=== PATIENT | male | born 1965 | race Caucasian/White ===

== ENCOUNTER 2019-01-14 12:12 | Inpatient (IN) | payer MEDICARE, MEDICAID ==
[~2019-01-14] VITALS: Ht 182.9 cm; Wt 71.4 kg
[2019-01-14] MEDS ORDERED: NITR0.4T39 SL (13:12)
[2019-01-14] MEDS ORDERED: FURO20TA4 PO (13:12)
[2019-01-14] MEDS ORDERED: LEVO125T6 PO (13:12)
[2019-01-14] MEDS ORDERED: FERR325T18 PO (13:12)
[2019-01-14] MEDS ORDERED: DULA1.5P2 SQ (13:12)
[2019-01-14] MEDS ORDERED: INSU100I32 SQ (13:12)
[2019-01-14] MEDS ORDERED: ROSU40TA PO (13:12)
[2019-01-14] MEDS ORDERED: VILA40TA PO (13:12)
[2019-01-14] MEDS ORDERED: POLY17PO6 PO (13:12)
[2019-01-14] MEDS ORDERED: CARV12.52 PO (13:12)
[2019-01-14] MEDS ORDERED: ONDA8TAB13 PO (13:12)
[2019-01-14] MEDS ORDERED: LISI-556 PO (13:12)
[2019-01-14] MEDS ORDERED: PANT40TA3 PO (13:12)
[2019-01-14] MEDS ORDERED: GBPN600T PO (13:12)
[2019-01-14] MEDS ORDERED: LURA80TA3 PO (13:12)
[2019-01-14] MEDS ORDERED: LEVE100S16 PO (13:12)
--- NOTE | 2019-01-14 15:55 | NUR ---
Gertrude Frazier admitted to room 232-1, with an admitting diagnosis of CVA with Right sided paralysis, on 01/14/19 from [facility] via Ambulance, accompanied by customer experience specialist.GERTRUDE FRAZIER introduced to surroundings, call light, bed controls, phone, TV, temperature control, lights, meal times, smoking policy, visitor policy, side rail policy, bathrooms and showers. Patient Rights given to patient in the handbook.GERTRUDE FRAZIER verbalizes understanding that [facility] is not responsible for the loss or damage to any personal effects or valuables that are kept in the patients posession during their hospitalization. The following Patient Care Plans were discussed with the patient: Discharge Planning, CVA. GERTRUDE FRAZIER afferms with a nod understanding of Interdisciplinary Patient Education. Patient received Patient Rights Booklet, which includes Privacy Act Statement and Data Collection Information Summary.
--- NOTE | 2019-01-14 16:14 | Physical Therapy Evaluation ---
PT Evaluation-General Medical Diagnosis Admission Date Medical Diagnosis: CVA Onset Date: Jan 03, 2019 Therapy Diagnosis Therapy Diagnosis: impaired mobility, strength, endurance, balance Referral Physician: Amanda Alicia DO Reason for Referral: Evaluation/Treatment Medical History Pertinent Medical History: CAD, COPD, DM, Hypothroidism Additional Medical History anxiety, depression, Factor V Leiden, hyperlipidemia, PE, CHF Current History Pt had a MCA stroke Reviewed History: Yes Social History Unknown, patient is non-verbal and has no visitors. Prior/Core FIM Prior Level of Function Therapy Code Descriptions/Definitions Functional Dixie Measure: 0=Not Assessed/NA 4=Minimal Assistance 1=Total Assistance 5=Supervision or Setup 2=Maximal Assistance 6=Modified Dixie 3=Moderate Assistance 7=Complete Dixie Therapy Quality Codes: 6 Independent with activity with or without an assistive device 5 Patient requires set up or clean up by helper. Patient completes activity by themselves 4 Supervision or touching assist (CGA). [place] provide cues , steadying assist 3 The helper provides less than half the effort to complete the activity 2 The helper provides more than half the effort to complete the activity 1 Dependent. The helper does all the effort to complete an activity 7 Patient refused to complete or attempt activity 9 The patient did not perform the activity before the current illness or injury 88 Not attempted due to Medical conditions or safety concerns Functional Abilities and Goals: Independent: Patient completed the activities by him/herself, with or without an assistive device, with no assistance from a helper. Needed Some Help: Patient needed partial assistance from another person to complete activities. Dependent: A helper completed the activities for the patient. Unknown: Not Applicable: PT Evaluation-Current Subjective Patient in bed pre tx, he is non-verbal. Seems to have unreliable yes/no answers. Does not indicate that he has any pain. Objective Patient Orientation: Unable to Assess, Non-Verbal/Aphasic Attachments: Temple Catheter ROM/Strength ROM Lower Extremities WNL Strenght Lower Extremities Flaccid right side, cannot follow directions to perform strength testing on the left side. Neuromuscular (Tone, Coordination, Reflexes) Decreased general muscle tone in right leg. Transfers Therapy Code Descriptions/Definitions Functional Dixie Measure: 0=Not Assessed/NA 4=Minimal Assistance 1=Total Assistance 5=Supervision or Setup 2=Maximal Assistance 6=Modified Dixie 3=Moderate Assistance 7=Complete Dixie Therapy Quality Codes: 6 Independent with activity with or without an assistive device 5 Patient requires set up or clean up by helper. Patient completes activity by themselves 4 Supervision or touching assist (CGA). [place] provide cues , steadying assist 3 The helper provides less than half the effort to complete the activity 2 The helper provides more than half the effort to complete the activity 1 Dependent. The helper does all the effort to complete an activity 7 Patient refused to complete or attempt activity 9 The patient did not perform the activity before the current illness or injury 88 Not attempted due to Medical conditions or safety concerns Transfers (B, C, W/C) (FIM): 2 Scootin Rollin Roll Left to Right (QC): 2 Supine to/from Sit: 2 Sit to/from Stand: 3 bed t/f WC(FIM only if WC use): 2 Sit to Lying (QC): 2 Lying to Sitting/Side of Bed(Q: 2 Sit to Stand (QC): 2 Chair/Rsb-bj-Hiyzq Xfer(QC): 2 Car Transfer (QC): 1 Patient performs bed mobility with max assist, supine <-> sit with max assist, sit <-> stand with mod assist, transfers with mod assist, dependent for car transfer. Leans heavily to the right side when sitting or standing. Gait Does the Patient Walk?: No and Walking Goal IS indicated Comments/Gait Description Patient is non-ambulatory at this time, right side is flaccid, leans heavily to the right side. Wheelchair Training Does the Pt Use a Wheelchair?: Yes Wheelchair (FIM): 1 Type of Wheelchair: Manual Stairs If not tested on admit;explain patient is non-ambulatory at this time Balance Sitting Static: Poor Sitting Dynamic: Poor Standing Static: Poor Standing Dynamic: Poor Assessment/Needs Patient is flaccid on the right side, poor sitting and standing balance. Rehab Potential: Poor PT Short Term Goals Short Term Goals Time Frame: Jan 21, 2019 Transfers (B,C,W/C) (FIM): 3 Gait (FIM): 1 Gait Distance Comment: 8' Gait Level of Assist: 2 Gait Assistive Device: Parallel Bars PT Assisted Goals Newsstand Vendor Goals PT Assisted Goals Time Frame: Feb 04, 2019 Transfers (B,C,W/C) (FIM): 4 Sit to Lying (QC): 3 Lying-Sitting on Side/Bed(QC): 3 Sit to Stand (QC): 3 Rollin Roll Left to Right (QC): 3 Chair/Gzm-kq-Giuxp Xfer(QC): 3 Car Transfer (QC): 3 Gait (FIM): 1 Distance: 20' Walk 10 feet (QC): 3 Gait Level of Assist: 4 Gait Assistive Device: Walker Dmitry Wheelchair (FIM): 2 Distance: 50' Wheelchair Level of Assist: 3 Wheel 50 feet with 2 turns (QC: 2 PT Plan Problem List Problem List: Activity Tolerance, Functional Strength, Safety, Balance, Gait, Transfer, Bed Mobility, ROM Treatment/Plan Treatment Plan: Continue Plan of Care Treatment Plan: Bed Mobility, Concurrent Therapy, Education, Functional Activity Merlin, Functional Strength, Group Therapy, Gait, Safety, Therapeutic Exercise, Transfers Treatment Duration: Feb 04, 2019 Frequency: At least 5 of 7 days/Wk (IRF) Estimated Hrs Per Day: 1.5 hours per day Patient and/or Family Agrees t: Yes Safety Risks/Education Patient Education: Transfer Techniques, Correct Positioning, Safety Issues Teaching Recipient: Patient Teaching Methods: Demonstration, Discussion Response to Teaching: Reinforcement Needed Discharge Recommendations Plan Patient will perform bed mobility and transfer training, balance and endurance training, functional strengthening, gait training, wheelchair mobility training , and education, to improve functional mobility and independence at home. Therapy D/C Recommendations: Home w/ Family Support, Long Term (TCU/NH) Time/GCodes Time In: 1555 Time Out: 1605 Total Billed Treatment Time: 10 Total Billed Treatment 1 visit CARLOS IQBAL PT Jan 14, 2019 16:14
[2019-01-14] MEDS ORDERED: NON-FORMULARY MEDICATION 1 EA EA (Dulaglutide (Trulicity) 1.5 MG) SQ SCH (16:15)
[2019-01-14] MEDS ORDERED: ONDANSETRON 8 MG (ZOFRAN) ORAL DISSOLVE TAB PO PRN (16:15)
[2019-01-14] MEDS ORDERED: NITROGLYCERIN 0.4 MG SL TABS BTL 25'S SL PRN (16:15)
[2019-01-14] MEDS ORDERED: FUROSEMIDE 20 MG (LASIX) TAB PO PRN (16:15)
[2019-01-14 16:19] VITALS: BP 140/95
--- NOTE | 2019-01-14 16:27 | Occupational Therapy Eval ---
OT Evaluation-General/PLF Medical Diagnosis Admission Date Jan 14, 2019 at 15:55 Medical Diagnosis: CVA Onset Date: Jan 03, 2019 Therapy Diagnosis Therapy Diagnosis: impaired self care skills Referral Physician: Amanda Alicia DO Medical History Pertinent Medical History: CAD, COPD, DM, GERD, Hypothroidism Additional Medical History anxiety, depression, Factor V Leiden, hyperlipidemia, PE, CHF Current History Pt had a MCA stroke ADL-Prior Level of Function Therapy Code Descriptions/Definitions Functional Badger Measure: 0=Not Assessed/NA 4=Minimal Assistance 1=Total Assistance 5=Supervision or Setup 2=Maximal Assistance 6=Modified Bad[place] 3=Moderate Assistance 7=Complete [place] Therapy Quality Codes: 6 Independent with activity with or without an assistive device 5 Patient requires set up or clean up by helper. Patient completes activity by themselves 4 Supervision or touching assist (CGA). [place] provide cues , steadying assist 3 The helper provides less than half the effort to complete the activity 2 The helper provides more than half the effort to complete the activity 1 Dependent. The helper does all the effort to complete an activity 7 Patient refused to complete or attempt activity 9 The patient did not perform the activity before the current illness or injury 88 Not attempted due to Medical conditions or safety concerns Functional Abilities and Goals: Independent: Patient completed the activities by him/herself, with or without an assistive device, with no assistance from a helper. Needed Some Help: Patient needed partial assistance from another person to complete activities. Dependent: A helper completed the activities for the patient. Unknown: Not Applicable: ADL PLOF Comments Pt nonverbal. Unable to answer simple questions. PLOF is unknown. No family present. Self Care: Unknown Functional Cognition: Unknown OT Current Status Subjective Pt transferred to ARU from outside hospital by ambulance. Pt is non-verbal and is unable to answer questions. Mental Status/Objective Patient Orientation: Unable to Assess Attachments: PEG Tube Current Upper Extremity ROM Pt does not have any active movement of right UE. Shoulder Subluxation is noted. Decreased shoulder ROM Left UE ROM appears to be functional Upper Extremity Coordination Impaired right UE Upper Extremity Sensation Unable to assess Upper Extremity Strength 0/5 right UE Difficult to Assess left UE secondary to decreased ability to follow commands for MMT. ADL-Treatment ADL-Current Pt sitting in chair. Transferred to EOB with max assist. Pt leans to right during standing and sitting at EOB. Sit to supine with assist for trunk and LE. Pt positioned in bed with needs met. Nurse aide present. Will complete ADL assessment in future session. OT Short Term Goals Short Term Goals Time Frame: Jan 21, 2019 Grooming(FIM): 3 Upper Body Dressing(FIM): 3 Lower Body Dressing(FIM): 2 Toilet/Commode Transfer(FIM): 3 Additional Short Term Goals: 1-Demonstrate ADL Tasks, 2-Verbalize Understanding , 3-ImproveStrength/Merlin 1=Demonstrate adherence to instructed precautions during ADL tasks. 2=Patient will verbalize/demonstrate understanding of assistive devices/ modifications for ADL. 3=Patient will improve strength/tolerance for activity to enable patient to perform ADL's. OT Company Doctor Goals Half-Way Goals Time Frame: Feb 04, 2019 Eating (FIM): 5 (if pt is cleared for oral intake) Eating (QC): 5 Groomin Oral Hygiene (QC): 4 Bathing(FIM): 4 Shower/Bathe Self (QC): 3 Upper Body Dressing(FIM): 4 Upper Body Dressing (QC): 3 Lower Body Dressing(FIM): 3 On/Off Footwear (QC): 3 Toileting(FIM): 4 Toileting Hygiene (QC): 3 Toilet/Commode Transfer(FIM): 4 Toilet/Commode Transfer (QC): 3 Shower Transfer(FIM): 3 Additional Goals: 1-Demonstrate ADL Tasks, 2-Verbalize Understanding, 3- ImproveStrength/Merlin 1=Demonstrate adherence to instructed precautions during ADL tasks. 2=Patient will verbalize/demonstrate understanding of assistive devices/ modifications for ADL. 3=Patient will improve strength/tolerance for activity to enable patient to perform ADL's. OT Education/Plan Problem List/Assessment Assessment: Decreased Activ Tolerance, Decreased Safety Aware, Decreased UE Strength, Dependent Transfers, Impaired Bed Mobility, Impaired Coordination, Impaired Funct Balance, Impaired I ADL's, Impaired Self-Care Skills, Restricted Funct UE ROM Pt admitted to ARU following acute hospitalization for CVA. Pt does not demonstrate any active movement of right UE. Pt is nonverbal and has difficulty following commands. Pt to benefit from skilled OT intervention for ADL training , transfers, ROM/strengthening, and safety education to increase level of independence and allow safe discharge plan. Discharge Recommendations Plan/Recommendations: Continue POC Treatment Plan/Plan of Care Treatment,Training & Education: Yes Patient would benefit from OT for education, treatment and training to promote independence in ADL's, mobility, safety and/or upper extremity function for ADL' s. Plan of Care: ADL Retraining, Functional Mobility, Group Exercise/Act as Ind, UE Funct Exercise/Act, UE Neuromus Re-Ed/Coord, Visual/Perceptual Retrain Treatment Duration: Feb 04, 2019 Frequency: At least 5 of 7 days/Wk (IRF) Estimated Hrs Per Day: 1.5 hours per day Rehab Potential: Poor Time/GCodes Start Time: 16:05 Stop Time: 16:15 Total Time Billed (hr/min): 10 Billed Treatment Time 1 visit, EVEve(10minutes) NANCY GORMAN OT Jan 14, 2019 16:27
[2019-01-14] MEDS ORDERED: ONDANSETRON 4 MG (ZOFRAN) ORAL DISSOLVE TAB PO PRN (16:30)
[2019-01-14] MEDS ORDERED: PATIENT MAY USE OWN MED,SINGLE MED PO SCH (16:30)
--- NOTE | 2019-01-14 17:31 | PM&R H&P / Post Admit Assess ---
History of Present Illness HPI/Chief Complaint CC: Catastrophic CVA debility HPI: This is a 53-year-old white male who has a past medical history of type II diabetes, CAD w/recent stents placed 09/28 and hypertension who was admitted to [facility] on 01/03/19 due to right sided weakness due to ischemic stroke. He was a phasic on admission and admitted to the ICU at [facility]. The stroke was located in the left MCA region. He did not qualify for TPA. Patient later converted to hemorrhagic stroke for which neurosurgery was consulted. No decompression surgery was required. Patient was on anticoagulation and antiplatelet therapy for the stroke occurred. He had had multiple stents placed in September for which he was on antiplatelet therapy. Both anticoagulation and antiplatelet agents were stopped because of the hemorrhagic progression. [facility] had spoken to neurology and cardiology and antiplatelets can be resumed 2 weeks from time of discharge from [facility] on 01/14/19. Those will be restarted on 01/28/19. Patient also had dysphagia as a result from the stroke and although NG tube was placed for feeding he's failed multiple swallow test and GI waist PEG tube. Currently patient aphasic with also expressive aphasia and requires feedings per PEG tube. Patient does have blanchable areas on his coccyx and right heel of which are being treated aggressively. No evidence of infection around the PEG tube. He did have incontinence stool this morning. His sister is involved in his care but I have not seen her arrived yet. Patient has never and has no other family members. Barriers to returning home include lack of ability to communicate may be a safety hazard if that does not resolve in addition to tube feedings and right- sided paralysis will preclude him from likely doing that himself in addition to major fall risk if he cannot walk on his own. Source: RN/MD, old records Exam Limitations: clinical condition Date Seen 01/14/19 Time Seen by a Provider: 17:30 Attending Physician Amanda Rene Jackie S MD Referring Physician Date of Admission Jan 14, 2019 at 15:55 Home Medications & Allergies Home Medications Reviewed patient Home Medication Reconciliation performed by pharmacy medication reconciliations machines technician and/or nursing. Patients Allergies have been reviewed. Allergies Allergies Coded Allergies tramadol (Verified Allergy, Severe, N/V, throat swells, 01/14/19) codeine (Verified Allergy, Intermediate, SOA,Wheezing, 01/14/19) citalopram (Verified Allergy, Mild, dizziness, 01/14/19) nalbuphine (Verified Allergy, Mild, itching, 01/14/19) Past Yrflqoh-Klrsxc-Hiykhz Hx Past Med/Social Hx: Reviewed Nursing Past Med/Soc Hx, Reviewed and Corrections made Patient Social History Marrital Status: single Employed/Student: unemployed Smoking Status: Current Everyday Smoker Past Medical History Surgeries: Orthopedic Respiratory: COPD, Sleep Apnea Currently Using CPAP: No Currently Using BIPAP: No Cardiac: Angina, Cardiomyopathy, Chronic Edema/Swelling, Coronary Artery Disease, Deep Vein Thrombosis, Heart Attack, High Cholesterol, Hypertension Neurological: Stroke (01/03/19 ischemic and extended to hemorrhagic) Genitourinary: Kidney Stones, Renal Failure, Neurogenic Bladder Gastrointestinal: Gastroesophageal Reflux PEG tube Endocrine: Diabetes, Insulin dep Psychosocial: Anxiety, Suicide Attempts, Schizophrenia, Depression Skin/Integumentary: Recent Skin Changes Review of Systems ROS-Unable to Obtain: due to aphasia Constitutional: see HPI Physical Exam Exam Vital Signs Vital Signs Date Time Temp Pulse Resp B/P (MAP) Pulse Ox O2 Delivery O2 Flow Rate FiO2 01/15/19 09:08 98.0 64 20 119/77 (91) 100 Room Air Capillary Refill : General Appearance: No Apparent Distress, WD/WN, Chronically ill, Cachetic HEENT: PERRL/EOMI, Normal ENT Inspection, Pharynx Normal, Moist Mucous Membranes Neck: Normal Inspection, Non Tender, Supple, Other (limited ROM leans right) Respiratory: Lungs Clear, Normal Breath Sounds, No Accessory Muscle Use, No Respiratory Distress, Decreased Breath Sounds Cardiovascular: Regular Rate, Rhythm, No Edema, No Gallop, No JVD, No Murmur Gastrointestinal: Normal Bowel Sounds, No Organomegaly, No Pulsatile Mass, Non Tender, Soft Back: Normal Inspection, No CVA Tenderness, No Vertebral Tenderness, Decreased Range of Motion (leans right) Extremity: Normal Capillary Refill, Normal Inspection, Non Tender, No Calf Tenderness, No Pedal Edema, Other (limited ROM right) Neurologic/Psychiatric: Alert, Abnormal treasury director II-XII, Aphasia, Depressed Affect, Facial Droop, Motor Weakness (right) Skin: Normal Color, Warm/Dry Lymphatic: No Adenopathy Results Results/Procedures Labs Laboratory Tests 01/15/19 04:25 Patient resulted labs reviewed. Assessment/Plan Assessment and Plan Assess & Plan/Chief Complaint Assessment/Plan: (1) Hemorrhagic stroke-not an antiplatelet and anticoagulation candidate until per Neurology specialty (2) Ischemic stroke- catastrophic with right sided paralysis (3) CAD (coronary artery disease)-consulting Dr Burton (4) Presence of stent in coronary artery- 09/28 must stay off Plavix until (5) Aphasia-ST consult (6) Expressive aphasia- ST consult (7) Decubitus ulcer- monitor closely may need wound care if progresses (8) Smoker-smoking cessation (9) Diabetes mellitus-insulin management (10) Temple catheter in place-consult Dr Klein on Thursday to help with DC due to infection risk (11) PEG (percutaneous endoscopic gastrostomy) status-feeding regimen per dietary (12) Dysphagia-NPO (13) Hypothyroidism (acquired)-Home med (14) Anxiety-home med (15) Acute kidney injury- monitor closely creatinine normal today (16) Factor 5 Leiden mutation, heterozygous-no anticoagulation of Xarelto home med until 01/28/19 (17) Hx pulmonary embolism- no anticoagulation of Xarelto home med until 01/28/19 (18) Hypertension- home med (19) History of ST elevation myocardial infarction (STEMI)-Cardiology appreciated (20) Colon polyps (21) Hyponatremia- monitor closely due to brain injury (22) Depression- home med restart (23) CHF (congestive heart failure)- check ECHO 40% last EF a few years ago (24) Cardiomyopathy, ischemic- check ECHO 40% last EF a few years ago (25) COPD (chronic obstructive pulmonary disease)- may need nebs (26) LILY (obstructive sleep apnea)- monitor O2 (27) GERD (gastroesophageal reflux disease)- PPI (28) Hyperlipidemia- statin (29) Renal calculus- no active issues (30) Schizophrenia- chronic disability (31) Marijuana abuse- cessation currently (1) Hemorrhagic stroke (2) Ischemic stroke (3) CAD (coronary artery disease) (4) Presence of stent in coronary artery (5) Aphasia (6) Expressive aphasia (7) Decubitus ulcer (8) Smoker (9) Diabetes mellitus (10) Temple catheter in place (11) PEG (percutaneous endoscopic gastrostomy) status (12) Dysphagia (13) Hypothyroidism (acquired) (14) Anxiety (15) Acute kidney injury (16) Factor 5 Leiden mutation, heterozygous (17) Hx pulmonary embolism (18) Hypertension (19) History of ST elevation myocardial infarction (STEMI) (20) Colon polyps (21) Hyponatremia (22) Depression (23) CHF (congestive heart failure) (24) Cardiomyopathy, ischemic (25) COPD (chronic obstructive pulmonary disease) (26) LILY (obstructive sleep apnea) (27) GERD (gastroesophageal reflux disease) (28) Hyperlipidemia (29) Renal calculus (30) Schizophrenia (31) Marijuana abuse (32) CVA (cerebral vascular accident) Post Admission Physician Asses Date seen by provider: Jan 14, 2019 Time seen by provider: 17:30 The preadmission screen agrees with the post admission assessment that the patient is a good candidate for inpatient rehabilitation. The patient will have a comprehensive program of inpatient rehabilitation with a goal of maximizing level of functional independence prior to discharge home with family. The patient will have PT/OT ninety minutes per day, each discipline, five days a week for gait, strengthening, conditioning, balance, ADLs, any patient/family/caregiver training as necessary. Speech therapy to do cognitive assessment and treat as indicated. Rehabilitation nursing to assist with bowel, bladder, skin, wound care, medication administration, pain management. Vice President Medical Affairs to assist with discharge planning, community reentry. SCD's for DVT prophylaxis. He appears to be well motivated to participate in three hours of therapy a day. He should be able to tolerate three hours of therapy a day from a medical standpoint. He should benefit from the three hours of therapy a day. He has a reasonable discharge plan, reasonable discharge rehabilitation goals and a supportive family. He has various comorbidities that need to be closely monitored with medications and treatments adjusted on a daily basis as needed. These include: see above list Barriers to discharge for this patient who had been independent prior to this are for him to be modified independent to supervision for ADLs and mobility skills prior to discharge home with [family], so as to lessen the burden of the caregivers. Risks for this patient include: 1. Fall 2. Fracture 3. DVT 4. Pulmonary embolism 5. Wound infection 6. Skin breakdown 7. Contractures 8. Poorly controlled pain 9. Urinary retention 10. UTI 11. Respiratory infection 12. Aspiration Estimated Length of Stay: 21 days Prognosis: Rehab prognosis appears good for goal of discharge home with family modified independent to supervision for ADLs and mobility skills. AMANDA RENE DO Jan 14, 2019 17:31
[2019-01-14] MEDS: FERROUS SULF 325 MG (IRON) TAB PO SCH (18:19)
--- NOTE | 2019-01-14 19:53 | Consultation-Cardiology ---
HPI-Cardiology Cardiology Consultation: Date of Consultation 01/14/19 Time Seen by a Provider: 19:20 Date of Admission Attending Physician Amanda Alicia DO Admitting Physician Bell Colin MD Consulting Physician LETTY SANCHEZ MD, MA, FACP, FACC, [facility] [place], CCDS Physician requesting consult: Dr Alicia HPI: Chief Complaint: Reason for consultation: Cardiac co-management HPI 53 yo man with recent stroke that has left him with R-sided paralysis and aphasia He is not able to provide any history By movements head, denies cp or shortness of breath or syncope Review of Systems-Cardiology Review of Systems Constitutional: other (not able to provide a review of systems due aphasia) WDT-Yxskop-Jzsxec Hx Past Medical History PMH As described under Assessment. Family Medical History Family Medical History: Pt not able to provide fam history Allergies and Home Medications Allergies Coded Allergies: No Allergy Information Available (Unverified , 01/14/19) Home Medications Carvedilol 12.5 Mg Tablet, 12.5 MG PO BID, (Reported) Dulaglutide 1.5 Mg/0.5 Ml Pen.injctr, 1.5 MG SQ WEEK, (Reported) Ferrous Sulfate 325 Mg Tablet, 325 MG PO BID, (Reported) Furosemide 20 Mg Tablet, 20 MG PO DAILY PRN for GAIN 3LBS IN 24H OR 5LB IN 72H, (Reported) Gabapentin 600 Mg Tablet, 600 MG PO TID, (Reported) Insulin Degludec 100 Unit/1 Ml Insuln.pen, SQ UD, (Reported) 10 UNITS DAILY IN THE MORNING AND TITRATE INSTRUCTED. MAX DAILY DOSE 40 UNITS Levetiracetam 100 Mg/1 Ml Solution, 500 MG PO BID, (Reported) Levothyroxine Sodium 125 Mcg Tablet, 125 MCG PO DAILY, (Reported) Lisinopril 5 Mg Tablet, 5 MG PO DAILY, (Reported) Lurasidone HCl 80 Mg Tablet, 160 MG PO HS, (Reported) TAKES 2 (80MG) TABLETS Nitroglycerin 0.4 Mg Tab.subl, 0.4 MG SL UD PRN for CHEST PAIN, (Reported) Ondansetron 8 Mg Tab.rapdis, 8 MG PO Q8H PRN for NAUSEA/VOMITING-1ST LINE, ( Reported) Pantoprazole Sodium 40 Mg Tablet.dr, 40 MG PO DAILY, (Reported) Polyethylene Glycol 3350 17 Gm Powd.pack, 17 GM PO BID, (Reported) Rosuvastatin Calcium 40 Mg Tablet, 40 MG PO HS, (Reported) Vilazodone Hydrochloride 40 Mg Tablet, 40 MG PO DAILY, (Reported) Patient Home Medication List Home Medication List Reviewed: Yes Physical Exam-Cardiology Physical Exam Vital Signs/I&O 01/14/19 01/14/19 16:19 18:45 Temp 97.2 Pulse 72 Resp 16 B/P (MAP) 140/95 (110) Pulse Ox 98 O2 Delivery Room Air Room Air Capillary Refill : Data Review Labs Laboratory Tests 01/14/19 17:33: Glucometer 130H A/P-Cardiology Assessment/Admission Diagnosis 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 This is reported to be an ischemic stroke that converted to hemorrhagic stroke that was assoc's with hemorrhagic brain compression (treated conservatively by Neurosurgery at [facility]) DM II H/o cor stents in Sep 2018, but DAPT is being held because of the hemorrhagic component of the stroke. According to the d/c summary dated 01/14/19 from [facility], Neurology has recommended no antiplatelet therapy for at least 2 weeks Discussion and Recomendations * Very complex management * Needs antiplatelet therapy to prevent fatal stent thrombosis, but is contraindicated from a neurologic standpoint because of h'hagic component of recent ischemic stroke * We recommend initiation of Plavix as soon as is feasible from the standpoint of stroke. Dr Alicia is managing stroke and its rehab * We will try to obtain the reports of any recent cardiac workup/eval at [facility] * We will obtain LETTY Berkowitz MD FACP FAC CCDS Jan 14, 2019 19:53
[2019-01-14 20:54] VITALS: BP 107/74
[2019-01-14] MEDS: inSUlin ASPART (NovoLOG) 1 UNIT/0.01 ML (CHARGE PER UNIT) SC SCH (21:00)
[2019-01-14] MEDS: POLYETHYLENE GLYCOL 17 GM (MIRALAX) PACK PO SCH (21:15)
[2019-01-14] MEDS: GABAPENTIN 600 MG (NEURONTIN) TAB PO SCH (21:15)
[2019-01-14] MEDS: CARVEDILOL 12.5 MG (COREG) TABLET PO SCH (21:15)
[2019-01-14] MEDS: ROSUVASTATIN 20 MG (CRESTOR) TABLET PO SCH (21:15)
[2019-01-14] MEDS: LEVETIRACETAM 500 MG (KEPPRA) TAB PO SCH (21:15)
--- NOTE | 2019-01-15 | NUR ---
Glucerna 1.5/Peg tube feeding increased to 50 ml/hr. No residual, no N/V, no diarrhea, pt tolerating feeding well.
[2019-01-15 05:21] LABS: BASOPHILS # (AUTO) 0.1 10^3/uL (0.0-0.1); BASOPHILS % (AUTO) 1 % (0-10); EOSINOPHILS # (AUTO) 0.3 10^3/uL (0.0-0.3); EOSINOPHILS % (AUTO) 3 % (0-10); HEMATOCRIT 35 % (40-54); HEMOGLOBIN 11.5 G/DL (13.3-17.7); LYMPHOCYTES # (AUTO) 2.4 X 10^3 (1.0-4.0); LYMPHOCYTES % (AUTO) 29 % (12-44); MEAN CORPUSCULAR HEMOGLOBIN 30 PG (25-34); MEAN CORPUSCULAR HGB CONC 33 G/DL (32-36); MEAN CORPUSCULAR VOLUME 91 FL (80-99); MEAN PLATELET VOLUME 11.4 FL (7.4-10.4); MONOCYTES # (AUTO) 0.6 X 10^3 (0.0-1.0); MONOCYTES % (AUTO) 8 % (0-12); NEUTROPHILS # (AUTO) 5.1 X 10^3 (1.8-7.8); NEUTROPHILS % (AUTO) 60 % (42-75); PLATELET COUNT 291 10^3/uL (130-400); RED CELL DISTRIBUTION WIDTH 13.6 % (10.0-14.5); WHITE BLOOD COUNT 8.5 10^3/uL (4.3-11.0)
[2019-01-15 05:42] LABS: ALANINE AMINOTRANSFERASE 29 U/L (0-55); ALBUMIN 3.1 GM/DL (3.2-4.5); ALKALINE PHOSPHATASE 82 U/L (40-136); BILIRUBIN,TOTAL 0.3 MG/DL (0.1-1.0); BUN/CREATININE RATIO 32; CALCIUM 9.4 MG/DL (8.5-10.1); CARBON DIOXIDE 26 MMOL/L (21-32); CHLORIDE 111 MMOL/L (98-107); CREATININE SERUM 0.78 MG/DL (0.60-1.30); GFR ESTIMATED > 60; GLUCOSE 126 MG/DL (70-105); POTASSIUM 4.2 MMOL/L (3.6-5.0); SODIUM 145 MMOL/L (135-145); TOTAL PROTEIN 6.6 GM/DL (6.4-8.2)
[2019-01-15 06:00] VITALS: BP 106/74
[2019-01-15] MEDS: inSUlin ASPART (NovoLOG) 1 UNIT/0.01 ML (CHARGE PER UNIT) SC SCH ×4 (06:26→21:00)
[2019-01-15] MEDS: FERROUS SULF 325 MG (IRON) TAB PO SCH ×2 (06:45→16:46)
[2019-01-15] MEDS: LEVOTHYROXINE 125 MCG (LEVOTHROID) TABLET PO SCH (06:45)
[2019-01-15] MEDS ORDERED: VILAZODONE 40 MG (VIIBRYD) TABLET (NON-FORMULARY) PO SCH (09:00)
[2019-01-15 09:08] VITALS: BP 119/77
--- NOTE | 2019-01-15 09:54 | NUR ---
Pt in recliner w legs elevated after transferred per max assist of PT & OT. OT gave pt a comb & instructed it is for him to comb his hair. Pt took the comb in his Left hand, & placed it in his mouth. OT had to re-direct pt several times to use it for his hair & gong. Pt did eventually comb his hair & gong. Pt had been inct of mod amt smear of bm on fitted sheet, luz care provided, & sheets changed. Noted redness of bottom. Pt is non-verbal; nods head.
[2019-01-15] MEDS: PANTOPRAZOLE 40 MG (PROTONIX) TAB PO SCH (09:59)
[2019-01-15] MEDS: CARVEDILOL 12.5 MG (COREG) TABLET PO SCH ×2 (09:59→22:07)
[2019-01-15] MEDS: GABAPENTIN 600 MG (NEURONTIN) TAB PO SCH ×3 (09:59→22:07)
[2019-01-15] MEDS: lisINopril 5 MG (PRINIVIL) TABLET PO SCH (09:59)
[2019-01-15] MEDS: LEVETIRACETAM 500 MG (KEPPRA) TAB PO SCH ×2 (09:59→22:07)
[2019-01-15] MEDS: POLYETHYLENE GLYCOL 17 GM (MIRALAX) PACK PO SCH ×2 (09:59→22:08)
--- NOTE | 2019-01-15 10:07 | Occupational Ther Daily Note ---
OT Current Status-Daily Note Subjective Pt alert upon therapist arrival. Pt noted to have subluxation of RUE, therefore nursing consulted with recommendations to obtain a sling. Following assessment of self care status, the pt was positioned upright in his recliner, with pillows supporting subluxed glenohumeral joint. Pain Numeric Pain Scale: 0-No Pain Mental Status/Objective Patient Orientation: Non-Verbal/Aphasic Therapy Code Descriptions/Definitions Functional [place] Measure: 0=Not Assessed/NA 4=Minimal Assistance 1=Total Assistance 5=Supervision or Setup 2=Maximal Assistance 6=Modified [place] 3=Moderate Assistance 7=Complete [place] ADL-Treatment Therapy Code Descriptions/Definitions Functional [place] Measure: 0=Not Assessed/NA 4=Minimal Assistance 1=Total Assistance 5=Supervision or Setup 2=Maximal Assistance 6=Modified [place] 3=Moderate Assistance 7=Complete [place] Therapy Quality Codes: 6 Independent with activity with or without an assistive device 5 Patient requires set up or clean up by helper. Patient completes activity by themselves 4 Supervision or touching assist (CGA). Alvin provide cues , steadying assist 3 The helper provides less than half the effort to complete the activity 2 The helper provides more than half the effort to complete the activity 1 Dependent. The helper does all the effort to complete an activity 7 Patient refused to complete or attempt activity 9 The patient did not perform the activity before the current illness or injury 88 Not attempted due to Medical conditions or safety concerns Eating (FIM): 0 (Pt is NPO. ) Grooming (FIM): 2 (Max physical and Max verbal cues required for basic grooming /hygiene tasks. ) Bathing (FIM): 1 (Assistance of two people required for sponge bathing tasks. ) Bathing Location: L Arm, R Arm, L Upper Leg, R Upper Leg, L Lower Leg ( including foot), R Lower Leg (including foot), Chest, Abdomen, Buttocks, Perineal Area Upper Body (FIM): 1 (Assistance of two people required to assist pt. Task performed while seated EOB. ) Lower Body Dressing (FIM): 1 (Pt required assistance of two people to perform LBD. ) Toileting (FIM): 1 (Pt has barclay catheter, however was soiled upon evaluation. Pt required assistance of three people for toileting hygiene. ) Transfers (B, C, W/C) (FIM): 1 (Pt required assistance of two to perform sit to stand, and stand pivot transfers. ) Toilet/Commode Transfer (FIM): 1 (Pt required assistance of two. ) Tub Transfer(FIM): 0 Shower Transfer(FIM): 0 Education OT Patient Education: Correct positioning, Instructions to caregiver, Modified ADL techniques, Purpose of tx/functional activities, Reviewed precautions, Rehab process, Safety issues, Transfer techniques Teaching Recipient: Patient, Health Care Proxy Teaching Methods: Demonstration, Discussion Response to Teaching: Unable to Return Demonstration OT Short Term Goals Short Term Goals Time Frame: Jan 21, 2019 Grooming(FIM): 3 Upper Body Dressing(FIM): 3 Lower Body Dressing(FIM): 2 Toilet/Commode Transfer(FIM): 3 Additional Short Term Goals: 1-Demonstrate ADL Tasks, 2-Verbalize Understanding , 3-ImproveStrength/Merlin 1=Demonstrate adherence to instructed precautions during ADL tasks. 2=Patient will verbalize/demonstrate understanding of assistive devices/ modifications for ADL. 3=Patient will improve strength/tolerance for activity to enable patient to perform ADL's. OT Step Finisher Goals Step Finisher Goals Time Frame: Feb 04, 2019 Eating (FIM): 6 Eating (QC): 5 Groomin Oral Hygiene (QC): 4 Bathing(FIM): 6 Shower/Bathe Self (QC): 3 Upper Body Dressing(FIM): 6 Upper Body Dressing (QC): 3 Lower Body Dressing(FIM): 6 On/Off Footwear (QC): 3 Toileting(FIM): 6 Toileting Hygiene (QC): 3 Toilet/Commode Transfer(FIM): 4 Toilet/Commode Transfer (QC): 3 Shower Transfer(FIM): 3 Comprehension(FIM): 6 Expression (FIM): 6 Social Interaction(FIM): 6 Problem Solving(FIM): 6 Memory(FIM): 6 Additional Goals: 1-Demonstrate ADL Tasks, 2-Verbalize Understanding, 3- ImproveStrength/Merlin 1=Demonstrate adherence to instructed precautions during ADL tasks. 2=Patient will verbalize/demonstrate understanding of assistive devices/ modifications for ADL. 3=Patient will improve strength/tolerance for activity to enable patient to perform ADL's. OT Education/Plan Problem List/Assessment Pt admitted to ARU following acute hospitalization for CVA. Pt does not demonstrate any active movement of right UE. Pt is nonverbal and has difficulty following commands. Pt to benefit from skilled OT intervention for ADL training , transfers, ROM/strengthening, and safety education to increase level of independence and allow safe discharge plan. Discharge Recommendations Plan/Recommendations: Continue POC Treatment Plan/Plan of Care Patient would benefit from OT for education, treatment and training to promote independence in ADL's, mobility, safety and/or upper extremity function for ADL' s. Plan of Care: ADL Retraining, Functional Mobility, Group Exercise/Act as Ind, UE Funct Exercise/Act, UE Neuromus Re-Ed/Coord, Visual/Perceptual Retrain Treatment Duration: Feb 04, 2019 Frequency: At least 5 of 7 days/Wk (IRF) Estimated Hrs Per Day: 1.5 hours per day Rehab Potential: Poor Time/GCodes Start Time: 09:28 Stop Time: 10:08 Total Time Billed (hr/min): 40 Billed Treatment Time 1, ADL 3 SHAMIR OKEEFE OT Jan 15, 2019 10:07
--- NOTE | 2019-01-15 11:20 | PM&R Progress Note ---
Subjective HPI/CC On Admission Date Seen by Provider: Jan 15, 2019 Time Seen by Provider: 11:00 Subjective/Events-last exam Talked to nurse about early decubitus ulcers Right heel protection on Temple catheter remains We'll consult urology for help in discontinuing that Incontinent of bowel and likely incontinent of bladder so we'll monitor that closely and initiate training PEG tube feedings Blood sugar management Nutritional support to build reserve Speech therapy for dysphagia training Reviewed labs from today Reviewed extensive records from [facility] Schizophrenia history with anxiety and depression preclude a rapid recovery Review of Systems Neurological: Change in speech Objective Exam Vital Signs Vital Signs Date Time Temp Pulse Resp B/P (MAP) Pulse Ox O2 Delivery O2 Flow Rate FiO2 01/15/19 09:08 98.0 64 20 119/77 (91) 100 Room Air Capillary Refill : General Appearance: No Apparent Distress, WD/WN, Chronically ill, Cachetic, Other (unable to communicate) HEENT: PERRL/EOMI, Pharynx Normal Neck: Non Tender, Supple, Other (leans right) Respiratory: Lungs Clear, Normal Breath Sounds, No Accessory Muscle Use, No Respiratory Distress, Decreased Breath Sounds Cardiovascular: Regular Rate, Rhythm, No Edema, No Gallop, No JVD, No Murmur, Normal Peripheral Pulses Gastrointestinal: Normal Bowel Sounds, Non Tender, Soft, Other (PEG in place) Back: Normal Inspection, No CVA Tenderness, No Vertebral Tenderness, Decreased Range of Motion, Other (leans right) Extremity: Normal Capillary Refill, Normal Inspection, Non Tender, No Calf Tenderness Neurologic/Psychiatric: Alert, 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 Assessment/Plan Assessment and Plan Assess & Plan/Chief Complaint Assessment/Plan: (1) Hemorrhagic stroke-not an antiplatelet and anticoagulation candidate until per Neurology specialty (2) Ischemic stroke- catastrophic with right sided paralysis (3) CAD (coronary artery disease)-consulting Dr Burton (4) Presence of stent in coronary artery- 09/28 must stay off Plavix until (5) Aphasia-ST consult (6) Expressive aphasia- ST consult (7) Decubitus ulcer- monitor closely may need wound care if progresses (8) Smoker-smoking cessation (9) Diabetes mellitus-insulin management (10) Temple catheter in place-consult Dr Klein on Thursday to help with DC due to infection risk (11) PEG (percutaneous endoscopic gastrostomy) status-feeding regimen per dietary (12) Dysphagia-NPO (13) Hypothyroidism (acquired)-Home med (14) Anxiety-home med (15) Acute kidney injury- monitor closely creatinine normal today (16) Factor 5 Leiden mutation, heterozygous-no anticoagulation of Xarelto home med until 01/28/19 (17) Hx pulmonary embolism- no anticoagulation of Xarelto home med until 01/28/19 (18) Hypertension- home med (19) History of ST elevation myocardial infarction (STEMI)-Cardiology appreciated (20) Colon polyps (21) Hyponatremia- monitor closely due to brain injury (22) Depression- home med restart (23) CHF (congestive heart failure)- check ECHO 40% last EF a few years ago (24) Cardiomyopathy, ischemic- check ECHO 40% last EF a few years ago (25) COPD (chronic obstructive pulmonary disease)- may need nebs (26) LILY (obstructive sleep apnea)- monitor O2 (27) GERD (gastroesophageal reflux disease)- PPI (28) Hyperlipidemia- statin (29) Renal calculus- no active issues (30) Schizophrenia- chronic disability (31) Marijuana abuse- cessation currently (1) Hemorrhagic stroke (2) Ischemic stroke (3) Aphasia (4) Decubitus ulcer (5) COPD (chronic obstructive pulmonary disease) (6) Diabetes mellitus (7) Anxiety (8) Expressive aphasia (9) CAD (coronary artery disease) (10) Dysphagia (11) Depression (12) CHF (congestive heart failure) (13) Hyperlipidemia (14) Hyponatremia (15) Renal calculus (16) Marijuana abuse (17) Schizophrenia (18) GERD (gastroesophageal reflux disease) (19) Hypothyroidism (acquired) (20) Hypertension (21) CVA (cerebral vascular accident) (22) LILY (obstructive sleep apnea) (23) Cardiomyopathy, ischemic (24) Colon polyps (25) Temple catheter in place (26) Acute kidney injury (27) Factor 5 Leiden mutation, heterozygous (28) History of ST elevation myocardial infarction (STEMI) (29) Hx pulmonary embolism Clinical Quality Measures DVT/VTE Risk/Contraindication: Risk Factor Score Per Nursin RFS Level Per Nursing on Admit: 4+=Very High KAILEY RENE DO Jan 15, 2019 11:20
--- NOTE | 2019-01-15 11:23 | Physical Therapy Daily Note ---
PT Daily Note-Current Subjective Pt. in bed upon arrival, non-verbal to therapist questions. Mental Status Attachments: PEG Tube, Temple Catheter Transfers Therapy Code Descriptions/Definitions Functional [place] Measure: 0=Not Assessed/NA 4=Minimal Assistance 1=Total Assistance 5=Supervision or Setup 2=Maximal Assistance 6=Modified [place] 3=Moderate Assistance 7=Complete [place] Therapy Quality Codes: 6 Independent with activity with or without an assistive device 5 Patient requires set up or clean up by helper. Patient completes activity by themselves 4 Supervision or touching assist (CGA). Brillion provide cues , steadying assist 3 The helper provides less than half the effort to complete the activity 2 The helper provides more than half the effort to complete the activity 1 Dependent. The helper does all the effort to complete an activity 7 Patient refused to complete or attempt activity 9 The patient did not perform the activity before the current illness or injury 88 Not attempted due to Medical conditions or safety concerns Transfers (B, C, W/C) (FIM): 1 Supine to/from Sit: 2 Sit to/from Stand: 1 Bed to/from Chair: 1 Exercises Seated Therapy Exercises: Long arc quads Seated Reps: 10 (AROM on L, PROM on R) Treatments sitting balance, transfers Assessment Current Status: Poor Progress, Fair Progress Pt. initially had very poor sitting balance but did improve with more time. He was dependent for sit to stand transfer but did bear weight through the L LE while standing. Utilized SPT to transfer bed to chair. Pt. up in bedside chair post session, heels propped up, R UE propped for proper shoulder positioning and all needs met. Co-tx with OT due to assist x 2. PT Short Term Goals Short Term Goals Time Frame: Jan 21, 2019 Gait (FIM): 1 Gait Distance Comment: 8' Gait Level of Assist: 2 Gait Assistive Device: Parallel Bars PT Assisted Goals Assisted Goals PT Hat Brusher Machine Goals Time Frame: Feb 04, 2019 Transfers (B,C,W/C) (FIM): 4 Sit to Lying (QC): 3 Lying-Sitting on Side/Bed(QC): 3 Sit to Stand (QC): 3 Rollin Roll Left to Right (QC): 3 Chair/Ngo-vt-Hsbvg Xfer(QC): 3 Car Transfer (QC): 3 Gait (FIM): 6 Distance: 20' Walk 10 feet (QC): 3 Gait Level of Assist: 4 Gait Assistive Device: Walker Dmitry Wheelchair (FIM): 6 Distance: 50' Wheelchair Level of Assist: 3 Wheel 50 feet with 2 turns (QC: 2 PT Plan Treatment/Plan Treatment Plan: Continue Plan of Care Treatment Plan: Bed Mobility, Concurrent Therapy, Education, Functional Activity Merlin, Functional Strength, Group Therapy, Gait, Safety, Therapeutic Exercise, Transfers Treatment Duration: Feb 04, 2019 Frequency: At least 5 of 7 days/Wk (IRF) Estimated Hrs Per Day: 1.5 hours per day Patient and/or Family Agrees t: Yes Time/GCodes Time In: 927 Time Out: 954 Total Billed Treatment Time: 27 Total Billed Treatment 1, FA (co-tx with OT) OLEG CHOWDHURY PT Jan 15, 2019 11:23
[2019-01-15] MEDS ORDERED: ACETAMINOPHEN 500 MG TAB (TYLENOL) PO NR (14:15)
[2019-01-15] MEDS: SALIVA STIMULANT MOUTH SPRAY (BIOTENE) 1.5 OZ MM PRN (14:18)
[2019-01-15 17:11] VITALS: BP 100/68
--- NOTE | 2019-01-15 19:30 | NUR ---
Clarified tube feeding order w Dr. Alicia. (See Pre-Admission Screening Form.) Will increase rate to 60cc/hr. per orders from [facility]. Pt is tolerating tube feedings well w minimum residual.
--- NOTE | 2019-01-15 21:00 | NUR ---
GAVE PAPER AND PEN, BUT COULD NOT WRITE DOWN REQUESTS. SISTER HERE TO VISIT AND BROUGHT SOME CLOTHES, BUT APPARENTLY NOT CPAP. WILL PASS ON FOR DAY NURSE TO CALL HER TOMORROW TO SEE IF SHE CAN BRING IT IN. APPEARS TO BE TOLERATING TUBE FEEDING WELL.
[2019-01-15 22:05] VITALS: BP 102/71
[2019-01-15] MEDS: ROSUVASTATIN 20 MG (CRESTOR) TABLET PO SCH (22:07)
[2019-01-15] MEDS: ACETAMINOPHEN 500 MG TAB (TYLENOL) PO SCH (22:07)
--- NOTE | 2019-01-15 23:30 | NUR ---
REQUEST FOR INFO FAXED TO [facility]. COPY OF REQUEST PLACED IN CHART. PATIENT HAS LIFTED LEFT ARM AND ALSO MADE THE "OKAY" SIGN WHEN TRYING TO ANSWER NURSE. DENIES PAIN.
[2019-01-16] MEDS: LEVOTHYROXINE 125 MCG (LEVOTHROID) TABLET PO SCH (05:41)
[2019-01-16] MEDS: FERROUS SULF 325 MG (IRON) TAB PO SCH ×2 (05:41→18:11)
[2019-01-16 05:49] VITALS: BP 100/67
[2019-01-16] MEDS: inSUlin ASPART (NovoLOG) 1 UNIT/0.01 ML (CHARGE PER UNIT) SC SCH ×4 (06:20→21:20)
[2019-01-16 09:26] VITALS: BP 96/64
[2019-01-16] MEDS: GABAPENTIN 600 MG (NEURONTIN) TAB PO SCH ×3 (09:38→21:28)
[2019-01-16] MEDS: CARVEDILOL 12.5 MG (COREG) TABLET PO SCH ×3 (09:38→21:30)
[2019-01-16] MEDS: ACETAMINOPHEN 500 MG TAB (TYLENOL) PO SCH ×2 (09:38→21:29)
[2019-01-16] MEDS: LEVETIRACETAM 500 MG (KEPPRA) TAB PO SCH ×2 (09:38→21:28)
[2019-01-16] MEDS: PANTOPRAZOLE 40 MG (PROTONIX) TAB PO SCH (09:38)
[2019-01-16] MEDS: POLYETHYLENE GLYCOL 17 GM (MIRALAX) PACK PO SCH ×2 (09:38→21:29)
[2019-01-16] MEDS: lisINopril 5 MG (PRINIVIL) TABLET PO SCH (09:47)
[2019-01-16] MEDS: SALIVA STIMULANT MOUTH SPRAY (BIOTENE) 1.5 OZ MM PRN (11:19)
--- NOTE | 2019-01-16 11:42 | PM&R Progress Note ---
Subjective HPI/CC On Admission Date Seen by Provider: Jan 16, 2019 Time Seen by Provider: 11:30 CC: Catastrophic CVA debility HPI: This is a 53-year-old white male who has a past medical history of type II diabetes, CAD w/recent stents placed 09/28 and hypertension who was admitted to [facility] on 01/03/19 due to right sided weakness due to ischemic stroke. He was a phasic on admission and admitted to the ICU at [facility]. The stroke was located in the left MCA region. He did not qualify for TPA. Patient later converted to hemorrhagic stroke for which neurosurgery was consulted. No decompression surgery was required. Patient was on anticoagulation and antiplatelet therapy for the stroke occurred. He had had multiple stents placed in September for which he was on antiplatelet therapy. Both anticoagulation and antiplatelet agents were stopped because of the hemorrhagic progression. [facility] had spoken to neurology and cardiology and antiplatelets can be resumed 2 weeks from time of discharge from [facility] on 01/14/19. Those will be restarted on 01/28/19. Patient also had dysphagia as a result from the stroke and although NG tube was placed for feeding he's failed multiple swallow test and GI waist PEG tube. Currently patient aphasic with also expressive aphasia and requires feedings per PEG tube. Patient does have blanchable areas on his coccyx and right heel of which are being treated aggressively. No evidence of infection around the PEG tube. He did have incontinence stool this morning. His sister is involved in his care but I have not seen her arrived yet. Patient has never and has no other family members. Barriers to returning home include lack of ability to communicate may be a safety hazard if that does not resolve in addition to tube feedings and right- sided paralysis will preclude him from likely doing that himself in addition to major fall risk if he cannot walk on his own. Subjective/Events-last exam Talked to nurse and he is tolerating feeding tube increased feeds Right heel protection on and doing well and no further breakdown Temple catheter remains and will consult Dr Klein to see him tomorrow Incontinent of bowel so high risk for breakdown of luz-area skin PEG tube feedings tolerated at continuous rate and may eventually transition to bolus feeds Blood sugar management on insulin Nutritional support to build reserve since he has lost a lot of weight per records Speech therapy for dysphagia training to start tomorrow Reviewed extensive records from [facility] yesterday Schizophrenia history with anxiety and depression preclude a rapid recovery Factor V Leiden hx with multiple DVT's and PE's in the past and now immobile at risk for clots until restarting anticoagulation and antiplatelet agents 01/28/19 but no clear indication for filter placement at this time Review of Systems Neurological: Weakness, Numbness, Incoordination, Confusion Objective Exam Vital Signs Vital Signs Date Time Temp Pulse Resp B/P (MAP) Pulse Ox O2 Delivery O2 Flow Rate FiO2 01/16/19 09:26 97.6 72 18 96/64 (75) 96 Room Air Capillary Refill : General Appearance: No Apparent Distress, WD/WN, Chronically ill, Cachetic, Other (unable to communicate) HEENT: PERRL/EOMI, Pharynx Normal Neck: Non Tender, Supple, Other (leans right) Respiratory: Lungs Clear, Normal Breath Sounds, No Accessory Muscle Use, No Respiratory Distress, Decreased Breath Sounds Cardiovascular: Regular Rate, Rhythm, No Edema, No Gallop, No JVD, No Murmur, Normal Peripheral Pulses Gastrointestinal: Normal Bowel Sounds, Non Tender, Soft, Other (PEG in place) Back: Normal Inspection, No CVA Tenderness, No Vertebral Tenderness, Decreased Range of Motion, Other (leans right) Extremity: Normal Capillary Refill, Normal Inspection, Non Tender, No Calf Tenderness Neurologic/Psychiatric: Alert, Abnormal cooperative extension agent II-XII, Abnormal Gait, Aphasia, Depressed Affect, Facial Droop, Motor Weakness (right) Skin: Normal Color, Warm/Dry Lymphatic: No Adenopathy Results/Procedures Lab Patient resulted labs reviewed. Assessment/Plan Assessment and Plan Assess & Plan/Chief Complaint Assessment/Plan: (1) Hemorrhagic stroke-not an antiplatelet and anticoagulation candidate until per Neurology specialty (2) Ischemic stroke- catastrophic with right sided paralysis (3) CAD (coronary artery disease)-consulting Dr Burton (4) Presence of stent in coronary artery- 09/28 must stay off Plavix until (5) Aphasia-ST consult (6) Expressive aphasia- ST consult (7) Decubitus ulcer- monitor closely may need wound care if progresses (8) Smoker-smoking cessation (9) Diabetes mellitus-insulin management (10) Temple catheter in place-consulted Dr Klein for Thursday to help with DC due to infection risk (11) PEG (percutaneous endoscopic gastrostomy) status-feeding regimen per dietary (12) Dysphagia-NPO (13) Hypothyroidism (acquired)-Home med (14) Anxiety-home med (15) Acute kidney injury- monitor closely creatinine normal today (16) Factor 5 Leiden mutation, heterozygous-no anticoagulation of Xarelto home med until 01/28/19 (17) Hx pulmonary embolism- no anticoagulation of Xarelto home med until 01/28/19 (18) Hypertension- home med (19) History of ST elevation myocardial infarction (STEMI)-Cardiology appreciated (20) Colon polyps (21) Hyponatremia- monitor closely due to brain injury (22) Depression- home med restart (23) CHF (congestive heart failure)- check ECHO 40% last EF a few years ago (24) Cardiomyopathy, ischemic- check ECHO 40% last EF a few years ago (25) COPD (chronic obstructive pulmonary disease)- may need nebs (26) LILY (obstructive sleep apnea)- monitor O2 (27) GERD (gastroesophageal reflux disease)- PPI (28) Hyperlipidemia- statin (29) Renal calculus- no active issues (30) Schizophrenia- chronic disability (31) Marijuana abuse- cessation currently (1) Hemorrhagic stroke (2) Ischemic stroke (3) Aphasia (4) Decubitus ulcer (5) COPD (chronic obstructive pulmonary disease) (6) Diabetes mellitus (7) Anxiety (8) Expressive aphasia (9) CAD (coronary artery disease) (10) Dysphagia (11) Depression (12) CHF (congestive heart failure) (13) Hyperlipidemia (14) Hyponatremia (15) Renal calculus (16) Marijuana abuse (17) Schizophrenia (18) GERD (gastroesophageal reflux disease) (19) Hypothyroidism (acquired) (20) Hypertension (21) CVA (cerebral vascular accident) (22) LILY (obstructive sleep apnea) (23) Cardiomyopathy, ischemic (24) Colon polyps (25) Temple catheter in place (26) Acute kidney injury (27) Factor 5 Leiden mutation, heterozygous (28) History of ST elevation myocardial infarction (STEMI) (29) Hx pulmonary embolism Clinical Quality Measures DVT/VTE Risk/Contraindication: Risk Factor Score Per Nursin RFS Level Per Nursing on Admit: 4+=Very High Other: HEMORRHAGIC CVA; ANTIPLATELET CAN BE RESUMED IN 2 WEEKS KAILEY RENE DO Jan 16, 2019 11:42
--- NOTE | 2019-01-16 14:08 | Progress Note-Cardiology ---
Cardiology SOAP Progress Note Subjective: Not able to provide any history because of aphasia Objective: I&O/Vital Signs 01/16/19 01/16/19 05:49 09:26 Temp 96.9 97.6 Pulse 65 72 Resp 16 18 B/P (MAP) 100/67 (78) 96/64 (75) Pulse Ox 95 96 O2 Delivery Room Air Room Air 01/16/19 00:00 Intake Total 1001 ml Output Total 550 ml Balance 451 ml Weight (Pounds): 164 Weight (Ounces): 14.4 Weight (Calculated Kilograms): 74.922038 Constitutional: well-developed, well-nourished, other (appears comfortable, aphasic) Respiratory: No accessory muscle use; other (fair to good bilat air entry) Cardiovascular: regular rate-rhythm, S1 and S2, systolic murmur (faint EMILY at card base) Gastrointestional: No tender; soft; No guarding, No rebound; audible bowel sounds Extremities: No clubbing, No cyanosis, No significant edema Neurologic/Psychiatric: other (aphasic, flaccid paralysis of the R side) Skin: No rash on exposed areas, No ulcerations on exposed areas Results/Procedures: Labs Laboratory Tests 01/15/19 16:41: Glucometer 161H 01/15/19 20:47: Glucometer 163H 01/16/19 06:17: Glucometer 204H 01/16/19 11:56: Glucometer 198H Laboratory Tests 01/15/19 04:25 A/P: Assessment: 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 This is reported to be an ischemic stroke that converted to hemorrhagic stroke that was assoc's with hemorrhagic brain compression (treated conservatively by Neurosurgery at [facility]) DM II H/o cor stents in Sep 2018, but DAPT is being held because of the hemorrhagic component of the stroke. According to the d/c summary dated 01/14/19 from [facility], Neurology has recommended no antiplatelet therapy for at least 2 weeks Echo of : LVEF 45%, septal hypokinesis, PASP 25 mmHg Plan: * Very complex management * Needs antiplatelet therapy to prevent fatal stent thrombosis, but is contraindicated from a neurologic standpoint because of h'hagic component of recent ischemic stroke * We recommend initiation of Plavix as soon as is feasible from the standpoint of stroke. Dr Alicia is managing stroke and its rehab * We are still trying to obtain the reports of any recent cardiac workup/eval at [facility] * Continue therapy with bb and TRELL-inhibitor for ischemic cm LETTY SANCHEZ MD FACP FACC CCDS Jan 16, 2019 14:08
--- NOTE | 2019-01-16 16:43 | CONSULTATION REPORT ---
DATE OF SERVICE: 01/16/2019 ATTENDING PHYSICIAN: Dr. Alicia. SUMMARY: A 53-year-old white man with history of type 2 diabetes and hypertension, suffered a right-sided weakness from ischemic stroke and some aphasia. He spent several days in nursery and then was transferred here for rehabilitation. He has been wearing a catheter all along. The patient is not the greatest historian and communicator; however, he denies any voiding symptoms at home. He was not taking any medication at home for prostate. No previous prostate surgery or bladder surgery. He is allergic to TRAMADOL, CODEINE, CITALOPRAM and NALBUPHINE. His rest of medication, multiple medical issues were reviewed. IMPRESSION: Urinary retention, benign prostatic hyperplasia and/or neurogenic bladder. PLAN: We will start him first on the Flomax. We will about 3 days to give him a trial of voiding. If we need to add Urecholine in the future we will. At this point just Flomax. Job ID: [id number] DocumentID: [id number] Dictated Date: 01/16/2019 15:58:38 [place] Technician Date: 01/16/2019 16:43:00 Dictated By: RAMBO CAMILO MD
[2019-01-16] MEDS ORDERED: TAMSULOSIN 0.4 MG (FLOMAX) CAP PO SCH (18:00)
[2019-01-16 18:15] VITALS: BP 108/77
--- NOTE | 2019-01-16 19:30 | NUR ---
Pt had inct stool of mod amt of greenish-dark brown bm w reddish pink brown shadowing around it. Alyssa care provided, turned & moisture barrier applied. Turned multiple times w this. Pt assisted w turn by using Lt arm, & turning body. Notified Dr. Alicia & rec'd orders.
[2019-01-16] MEDS ORDERED: doxAzosin 2 MG (CARDURA) TAB PO SCH (21:00)
[2019-01-16 21:27] VITALS: BP 112/79
[2019-01-16] MEDS: ROSUVASTATIN 20 MG (CRESTOR) TABLET PO SCH (21:28)
[2019-01-16] MEDS: doxAzosin 2 MG (CARDURA) TAB PO SCH (21:29)
[2019-01-16] MEDS: LURASIDONE 40 MG (LATUDA) TABLET NON-FORM PO SCH (21:32)
[2019-01-17 05:06] VITALS: BP 103/71
[2019-01-17] MEDS: LEVOTHYROXINE 125 MCG (LEVOTHROID) TABLET PO SCH (05:58)
[2019-01-17] MEDS: FERROUS SULF 325 MG (IRON) TAB PO SCH ×2 (05:58→17:52)
[2019-01-17] MEDS: inSUlin ASPART (NovoLOG) 1 UNIT/0.01 ML (CHARGE PER UNIT) SC SCH ×5 (05:58→21:14)
--- NOTE | 2019-01-17 08:00 | PM&R Progress Note ---
Subjective HPI/CC On Admission Date Seen by Provider: Jan 17, 2019 Time Seen by Provider: 08:00 CC: Catastrophic CVA debility HPI: This is a 53-year-old white male who has a past medical history of type II diabetes, CAD w/recent stents placed 09/28 and hypertension who was admitted to [facility] on 01/03/19 due to right sided weakness due to ischemic stroke. He was a phasic on admission and admitted to the ICU at [facility]. The stroke was located in the left MCA region. He did not qualify for TPA. Patient later converted to hemorrhagic stroke for which neurosurgery was consulted. No decompression surgery was required. Patient was on anticoagulation and antiplatelet therapy for the stroke occurred. He had had multiple stents placed in September for which he was on antiplatelet therapy. Both anticoagulation and antiplatelet agents were stopped because of the hemorrhagic progression. [facility] had spoken to neurology and cardiology and antiplatelets can be resumed 2 weeks from time of discharge from [facility] on 01/14/19. Those will be restarted on 01/28/19. Patient also had dysphagia as a result from the stroke and although NG tube was placed for feeding he's failed multiple swallow test and GI waist PEG tube. Currently patient aphasic with also expressive aphasia and requires feedings per PEG tube. Patient does have blanchable areas on his coccyx and right heel of which are being treated aggressively. No evidence of infection around the PEG tube. He did have incontinence stool this morning. His sister is involved in his care but I have not seen her arrived yet. Patient has never and has no other family members. Barriers to returning home include lack of ability to communicate may be a safety hazard if that does not resolve in addition to tube feedings and right- sided paralysis will preclude him from likely doing that himself in addition to major fall risk if he cannot walk on his own. Subjective/Events-last exam Hemoccult positive stool when it looked like dark bloody stool. Dr. Moffett has been consulted. Will check labs Stat including coagulation markers. Updated Pt who seems to understand the plan. Will be allowed to go back on antiplatelets and anticoagulation for recent stents due to CAD and factor five leiden with history of PE and DVTs in the past on 01/28/19 per neurology. Denies any pain. Will have a goal of initiation goal of bolus feedings with bolus fluids per peg tube and have speech therapy work with him today Schizophrenia history with anxiety and depression preclude a rapid recovery Factor V Leiden hx with multiple DVT's and PE's in the past and now immobile at risk for clots until restarting anticoagulation and antiplatelet agents 01/28/19 but no clear indication for filter placement at this time Review of Systems General: Fatigue Gastrointestinal: Melena Neurological: Weakness, Numbness, Incoordination, Change in speech Objective Exam Vital Signs Vital Signs Date Time Temp Pulse Resp B/P (MAP) Pulse Ox O2 Delivery O2 Flow Rate FiO2 01/17/19 20:30 100/74 (83) 01/17/19 16:14 97.0 90 16 99 Room Air Capillary Refill : General Appearance: No Apparent Distress, WD/WN, Chronically ill, Cachetic, Other (unable to communicate) HEENT: PERRL/EOMI, Pharynx Normal Neck: Non Tender, Supple, Other (leans right) Respiratory: Lungs Clear, Normal Breath Sounds, No Accessory Muscle Use, No Respiratory Distress, Decreased Breath Sounds Cardiovascular: Regular Rate, Rhythm, No Edema, No Gallop, No JVD, No Murmur, Normal Peripheral Pulses Gastrointestinal: Normal Bowel Sounds, Non Tender, Soft, Other (PEG in place) Back: Normal Inspection, No CVA Tenderness, No Vertebral Tenderness, Decreased Range of Motion, Other (leans right) Extremity: Normal Capillary Refill, Normal Inspection, Non Tender, No Calf Tenderness Neurologic/Psychiatric: Alert, Abnormal child care group leader II-XII, Abnormal Gait, Aphasia, Depressed Affect, Facial Droop, Motor Weakness (right) Skin: Normal Color, Warm/Dry Lymphatic: No Adenopathy Results/Procedures Lab Laboratory Tests 01/17/19 08:06 Patient resulted labs reviewed. Assessment/Plan Assessment and Plan Assess & Plan/Chief Complaint Assessment/Plan: (1) Hemorrhagic stroke-not an antiplatelet and anticoagulation candidate until per Neurology specialty (2) Ischemic stroke- catastrophic with right sided paralysis (3) CAD (coronary artery disease)-consulting Dr Burton (4) Presence of stent in coronary artery- 09/28 must stay off Plavix until (5) Aphasia-ST consult (6) Expressive aphasia- ST consult (7) Decubitus ulcer- monitor closely may need wound care if progresses (8) Smoker-smoking cessation (9) Diabetes mellitus-insulin management (10) Temple catheter in place-consulted Dr Klein for Thursday to help with DC due to infection risk (11) PEG (percutaneous endoscopic gastrostomy) status-feeding regimen per dietary (12) Dysphagia-NPO (13) Hypothyroidism (acquired)-Home med (14) Anxiety-home med (15) Acute kidney injury- monitor closely creatinine normal today (16) Factor 5 Leiden mutation, heterozygous-no anticoagulation of Xarelto home med until 01/28/19 (17) Hx pulmonary embolism- no anticoagulation of Xarelto home med until 01/28/19 (18) Hypertension- home med (19) History of ST elevation myocardial infarction (STEMI)-Cardiology appreciated (20) Colon polyps (21) Hyponatremia- monitor closely due to brain injury (22) Depression- home med restart (23) CHF (congestive heart failure)- check ECHO 40% last EF a few years ago (24) Cardiomyopathy, ischemic- check ECHO 40% last EF a few years ago (25) COPD (chronic obstructive pulmonary disease)- may need nebs (26) LILY (obstructive sleep apnea)- monitor O2 (27) GERD (gastroesophageal reflux disease)- PPI (28) Hyperlipidemia- statin (29) Renal calculus- no active issues (30) Schizophrenia- chronic disability (31) Marijuana abuse- cessation currently (32) Acute melena with stable H/H but in need of EGD and Colonoscopy per Dr Moffett Endoscopy tomorrow Needs anticoagulation with antiplatelet therapy restarted 01/28/19 (1) Hemorrhagic stroke (2) Ischemic stroke (3) Aphasia (4) Decubitus ulcer (5) COPD (chronic obstructive pulmonary disease) (6) Diabetes mellitus (7) Anxiety (8) Expressive aphasia (9) CAD (coronary artery disease) (10) Dysphagia (11) Depression (12) CHF (congestive heart failure) (13) Hyperlipidemia (14) Hyponatremia (15) Renal calculus (16) Marijuana abuse (17) Schizophrenia (18) GERD (gastroesophageal reflux disease) (19) Hypothyroidism (acquired) (20) Hypertension (21) CVA (cerebral vascular accident) (22) LILY (obstructive sleep apnea) (23) Cardiomyopathy, ischemic (24) Colon polyps (25) Temple catheter in place (26) Acute kidney injury (27) Factor 5 Leiden mutation, heterozygous (28) History of ST elevation myocardial infarction (STEMI) (29) Hx pulmonary embolism (30) Melena (31) Iron deficiency Clinical Quality Measures DVT/VTE Risk/Contraindication: Risk Factor Score Per Nursin RFS Level Per Nursing on Admit: 4+=Very High Other: HEMORRHAGIC CVA; ANTIPLATELET CAN BE RESUMED IN 2 WEEKS KAILEY RENE DO Jan 17, 2019 08:00
[2019-01-17 08:15] LABS: BASOPHILS % (AUTO) 0 % (0-10); EOSINOPHILS # (AUTO) 0.2 10^3/uL (0.0-0.3); EOSINOPHILS % (AUTO) 1 % (0-10); HEMATOCRIT 34 % (40-54); HEMOGLOBIN 11.9 G/DL (13.3-17.7); LYMPHOCYTES # (AUTO) 1.8 X 10^3 (1.0-4.0); LYMPHOCYTES % (AUTO) 16 % (12-44); MEAN CORPUSCULAR HEMOGLOBIN 31 PG (25-34); MEAN CORPUSCULAR HGB CONC 35 G/DL (32-36); MEAN CORPUSCULAR VOLUME 88 FL (80-99); MEAN PLATELET VOLUME 11.6 FL (7.4-10.4); MONOCYTES # (AUTO) 0.9 X 10^3 (0.0-1.0); MONOCYTES % (AUTO) 8 % (0-12); NEUTROPHILS # (AUTO) 8.5 X 10^3 (1.8-7.8); NEUTROPHILS % (AUTO) 75 % (42-75); PLATELET COUNT 271 10^3/uL (130-400); RED CELL DISTRIBUTION WIDTH 13.8 % (10.0-14.5); WHITE BLOOD COUNT 11.3 10^3/uL (4.3-11.0)
[2019-01-17 08:31] LABS: PROTHROMBIN TIME PATIENT 13.6 SEC (12.2-14.7)
[2019-01-17 08:39] LABS: ALANINE AMINOTRANSFERASE 26 U/L (0-55); ALBUMIN 3.3 GM/DL (3.2-4.5); ALKALINE PHOSPHATASE 80 U/L (40-136); BILIRUBIN,TOTAL 0.4 MG/DL (0.1-1.0); BUN/CREATININE RATIO 18; CARBON DIOXIDE 22 MMOL/L (21-32); CHLORIDE 104 MMOL/L (98-107); CREATININE SERUM 0.77 MG/DL (0.60-1.30); GFR ESTIMATED > 60; GLUCOSE 219 MG/DL (70-105); POTASSIUM 4.4 MMOL/L (3.6-5.0); SODIUM 134 MMOL/L (135-145); TOTAL PROTEIN 6.7 GM/DL (6.4-8.2)
[2019-01-17] MEDS: POLYETHYLENE GLYCOL 17 GM (MIRALAX) PACK PO SCH ×2 (08:54→20:41)
[2019-01-17] MEDS: ACETAMINOPHEN 500 MG TAB (TYLENOL) PO SCH ×2 (09:46→21:13)
[2019-01-17] MEDS: PANTOPRAZOLE 40 MG (PROTONIX) TAB PO SCH (09:46)
[2019-01-17] MEDS: GABAPENTIN 600 MG (NEURONTIN) TAB PO SCH ×3 (09:46→21:13)
[2019-01-17] MEDS: CARVEDILOL 12.5 MG (COREG) TABLET PO SCH ×2 (09:46→20:30)
[2019-01-17] MEDS: lisINopril 5 MG (PRINIVIL) TABLET PO SCH (09:46)
[2019-01-17] MEDS: LEVETIRACETAM 500 MG (KEPPRA) TAB PO SCH ×2 (09:46→21:13)
--- NOTE | 2019-01-17 09:50 | ST Cognitive Linguistic Eval ---
Speech Evaluation-General Medical Diagnosis CVA Onset Date: Jan 03, 2019 Therapy Diagnosis Therapy Diagnosis: Aphasia Precautions Precautions/Isolations: Aspiration, Fall Prevention, Standard Precautions, Pressure Ulcer Referral Referring Physician: Dr. Alicia Medical History Pertinent Medical History: CAD, COPD, DM, GERD, Hypothroidism Reviewed History: Yes Social History Current Living Status: Alone Speech PLF-Current Status Prior Level of Function Prior to his CVA the patient lived alone and was independent for his daily needs. Subjective The patient was pleasant and cooperative with the evaluation. Language Eval: Auditory Comprehends Simple Yes/No Ques: Functional Follows 1-Step Commands: Moderate Follows Complex Directions: Moderate Follows General Conversations: Moderate Language Eval: Verbal Language Completes Spontaneous Greeting: Moderate Produces Auto, Serial Info: Severe Imitates Simple Words/Phrases: Severe Word Finding: Severe Requests Basic Needs: Severe States Basic Personal Info: Severe Expresses Complex Ideas: Severe The patient is primarily nonverbal at this time. He does answer simple y/n questions with hand gestures and grunts of y/n. Objective Cognitive Domain Attention: WNL It is very difficult to assess the patient's actual knowledge level due to his expressive aphasia. He does answer simple y/n questions. Objective Formal/Standardized Tests Weidel yes/no Results Patient scored at 50% accuracy. Oral Motor/Speech Production Patient has severe expressive aphasia. Impression The patient is a pleasant 53 year old patient who was admitted to the ARU post new onset CVA. The patient was seen at bedside for a cognitive evaluation The patient was presented the Weidel yes/no test with a score of 50% accuracy. The patient communicates with grunts for yes/no, some hand gestures and a communication board provided to him this am by the . The patient will receive skilled services for expressive aphasia. Communication/Social Cognition Comprehension: 5 Expression: 1 Social Interaction: 3 Problem Solvin Memory: 4 Speech Patient Assess Expression of Ideas/Wants: Rarely/Never (1) Understanding Verbal Content: Sometimes Understands(2) Brief Interview-Mental Status: Yes Repetition of Three Words: None (0) Temporal Orientation: Year: No answer (0) Temporal Orientation: Month: No answer (0) Memory/Recall Ability: That he or she is in a hsp/hsp unit Speech Short Term Goals Short Term Goals Short Term Goals 1) The patient will answer simple y/n questions presented by staff with 80% accuracy given minimal repetitions. 2) The patient will communicate his wants/needs with verbal, gestures or communication board with 80% accuracy given minimal cues. 3) The patient will follow simple 1 step directions at 80% with minimal repetitions. Speech Algebra Tutor Goals Algebra Tutor Goals The patient will be able to effectively communicate his wants/needs with a variety of communication means. Comprehension: 6 Expression: 6 Social Interaction: 6 Problem Solvin Memory: 6 Speech-Plan Patient/Family Goals Patient/Family Goals: The patient's plan post rehab is unknown at this time. Treatment Plan Speech Therapy Treatment Plan: Continue Plan of Care The patient will receive skilled ST for expressive aphasia.The patient has a PEG tube placement for all nutritional/hydration and medications. Treatment Duration: Jan 28, 2019 Frequency: 5 times per week Estimated Hrs Per Day: .5 hour per day Rehab Potential: Guarded Barriers to Learning: New onset CVA, severe expressive aphasia. Pt/Family Agrees to Plan: Yes Safety Risks/Education Teaching Recipient: Patient Teaching Methods: Discussion Response to Teaching: Verbalize Understanding Education Topics Provided: Safety within his room. Communication with the board provided. Time Speech Therapy Time In: 08:30 Speech Therapy Time Out: 08:45 Total Billed Time: 15 Billed Treatment Time 1, SPSNDCOMP ELDER Clifton Jan 17, 2019 09:50
--- NOTE | 2019-01-17 10:00 | Occupational Ther Daily Note ---
OT Current Status-Daily Note Subjective Pt lying in bed, alert. Non-verbal and not consistent with yes/no. Pt incontinent of bowel. Mental Status/Objective Patient Orientation: Unable to Assess, Non-Verbal/Aphasic Therapy Code Descriptions/Definitions Functional [place] Measure: 0=Not Assessed/NA 4=Minimal Assistance 1=Total Assistance 5=Supervision or Setup 2=Maximal Assistance 6=Modified [place] 3=Moderate Assistance 7=Complete [place] Attachments: PEG Tube ADL-Treatment Co-treat with PT for skilled instruction and care due to pt's decreased mobility and activity tolerance. PT worked on mobility, standing, sitting balance, transfers and LE's stretching. OT worked on toileting, lower body dressing, functional sitting and standing, UE stretching and PROM. Pt incontinent of bowel. Dependent with cleansing self after BM. Pt did assist with rolling side to side using grabbars. Pt then assisted with lifting L foot to don pants while in bed, assist with donning R LE's. Max A for supine to sitting. See PT note for transfers, assist x2. PT max A x1 in standing while ERICKSON hiked pants over hips, pt attempted to assist. Therapy Code Descriptions/Definitions Functional [place] Measure: 0=Not Assessed/NA 4=Minimal Assistance 1=Total Assistance 5=Supervision or Setup 2=Maximal Assistance 6=Modified [place] 3=Moderate Assistance 7=Complete [place] Therapy Quality Codes: 6 Independent with activity with or without an assistive device 5 Patient requires set up or clean up by helper. Patient completes activity by themselves 4 Supervision or touching assist (CGA). Vivian provide cues , steadying assist 3 The helper provides less than half the effort to complete the activity 2 The helper provides more than half the effort to complete the activity 1 Dependent. The helper does all the effort to complete an activity 7 Patient refused to complete or attempt activity 9 The patient did not perform the activity before the current illness or injury 88 Not attempted due to Medical conditions or safety concerns Lower Body Dressing (FIM): 1 Lower Body Dressing (QC): 1 On/Off Footwear (QC): 1 Toileting (FIM): 1 Toileting Hygiene (QC): 1 Other Treatment Placed sling on R UE while in standing to decrease subluxation of R shldr. Pt able to stand at parallel bars for short period of times, ERICKSON worked with hand grasp on parallel bars and UE wt bearing. Pt tends to pull self to L side, assist to stay at midline. Pt CGA in static sitting, mod A for dynamic sitting. No active movement noted in R UE, tone kicked in with yawning. After therapy, pt sitting up in chair with call light and safety measures in place. Nrsg in room after therapy. All needs met in room. OT Short Term Goals Short Term Goals Time Frame: Jan 21, 2019 Grooming(FIM): 3 Upper Body Dressing(FIM): 3 Lower Body Dressing(FIM): 2 Toilet/Commode Transfer(FIM): 3 Additional Short Term Goals: 1-Demonstrate ADL Tasks, 2-Verbalize Understanding , 3-ImproveStrength/Merlin 1=Demonstrate adherence to instructed precautions during ADL tasks. 2=Patient will verbalize/demonstrate understanding of assistive devices/ modifications for ADL. 3=Patient will improve strength/tolerance for activity to enable patient to perform ADL's. OT Fdc Goals Fdc Goals Time Frame: Feb 04, 2019 Eating (FIM): 6 Eating (QC): 5 Groomin Oral Hygiene (QC): 4 Bathing(FIM): 6 Shower/Bathe Self (QC): 3 Upper Body Dressing(FIM): 6 Upper Body Dressing (QC): 3 Lower Body Dressing(FIM): 6 On/Off Footwear (QC): 3 Toileting(FIM): 6 Toileting Hygiene (QC): 3 Toilet/Commode Transfer(FIM): 4 Toilet/Commode Transfer (QC): 3 Shower Transfer(FIM): 3 Comprehension(FIM): 6 Expression (FIM): 6 Social Interaction(FIM): 6 Problem Solving(FIM): 6 Memory(FIM): 6 Additional Goals: 1-Demonstrate ADL Tasks, 2-Verbalize Understanding, 3- ImproveStrength/Merlin 1=Demonstrate adherence to instructed precautions during ADL tasks. 2=Patient will verbalize/demonstrate understanding of assistive devices/ modifications for ADL. 3=Patient will improve strength/tolerance for activity to enable patient to perform ADL's. OT Education/Plan Problem List/Assessment Assessment: Decreased Activ Tolerance, Decreased Safety Aware, Decreased UE Strength, Dependent Transfers, Impaired Bed Mobility, Impaired Cognition, Impaired Coordination, Impaired Funct Balance, Impaired I ADL's, Impaired Self- Care Skills, Restricted Funct UE ROM Pt admitted to ARU following acute hospitalization for CVA. Pt does not demonstrate any active movement of right UE. Pt is nonverbal and has difficulty following commands. Pt to benefit from skilled OT intervention for ADL training , transfers, ROM/strengthening, and safety education to increase level of independence and allow safe discharge plan. Discharge Recommendations Plan/Recommendations: Continue POC Treatment Plan/Plan of Care Patient would benefit from OT for education, treatment and training to promote independence in ADL's, mobility, safety and/or upper extremity function for ADL' s. Plan of Care: ADL Retraining, Functional Mobility, Group Exercise/Act as Ind, UE Funct Exercise/Act, UE Neuromus Re-Ed/Coord, Visual/Perceptual Retrain Treatment Duration: Feb 04, 2019 Frequency: At least 5 of 7 days/Wk (IRF) Estimated Hrs Per Day: 1.5 hours per day Rehab Potential: Poor Time/GCodes Start Time: 09:00 Stop Time: 10:00 Total Time Billed (hr/min): 60 Billed Treatment Time visit-ADL 2 (30 min) NM 2 (30 min) co-treat with PT 60 min MARIEL EMMANUEL Jan 17, 2019 10:00
--- NOTE | 2019-01-17 10:01 | Physical Therapy Daily Note ---
PT Daily Note-Current Subjective Patient in bed pre tx, has had a BM and needs cleaned, is not able to voice complaints of pain. Will be co-treating with OT due to poor patient activity tolerance, sitting and standing balance, poor general mobility. Patient BM cleaned with dependence and LE dressed with dependence. Appearance Patient in recliner post tx with nurse call, phone, tray, all needs met. Has chair alarm on. Mental Status Patient Orientation: Unable to Assess, Non-Verbal/Aphasic Attachments: PEG Tube Transfers Therapy Code Descriptions/Definitions Functional [place] Measure: 0=Not Assessed/NA 4=Minimal Assistance 1=Total Assistance 5=Supervision or Setup 2=Maximal Assistance 6=Modified [place] 3=Moderate Assistance 7=Complete [place] Therapy Quality Codes: 6 Independent with activity with or without an assistive device 5 Patient requires set up or clean up by helper. Patient completes activity by themselves 4 Supervision or touching assist (CGA). [place] provide cues , steadying assist 3 The helper provides less than half the effort to complete the activity 2 The helper provides more than half the effort to complete the activity 1 Dependent. The helper does all the effort to complete an activity 7 Patient refused to complete or attempt activity 9 The patient did not perform the activity before the current illness or injury 88 Not attempted due to Medical conditions or safety concerns Transfers (B, C, W/C) (FIM): 2 Scootin Rollin Supine to/from Sit: 2 Sit to/from Stand: 2 Bed to/from Chair: 2 Patient leans heavily to the right side, right knee marika during transfers Wheelchair Training Does the Pt Use a Wheelchair?: Yes Wheelchair (FIM): 1 Type of Wheelchair: Manual Exercises standing in parallel bars x3 for 5-30 sec each time, supine right LE ROM in all planes, sitting balance training Treatments BM cleaning and dressing, bed mobility and transfers, sitting balance, LE ROM, standing Assessment Current Status: Poor Progress no change in mobility but patient does seem to have more reliable yes/no answers PT Short Term Goals Short Term Goals Time Frame: Jan 21, 2019 Gait (FIM): 1 Gait Distance Comment: 8' Gait Level of Assist: 2 Gait Assistive Device: Parallel Bars PT Tree Girdler Goals Assisted Goals PT Tree Girdler Goals Time Frame: Feb 04, 2019 Transfers (B,C,W/C) (FIM): 4 Sit to Lying (QC): 3 Lying-Sitting on Side/Bed(QC): 3 Sit to Stand (QC): 3 Rollin Roll Left to Right (QC): 3 Chair/Aar-ci-Xfmep Xfer(QC): 3 Car Transfer (QC): 3 Gait (FIM): 6 Distance: 20' Walk 10 feet (QC): 3 Gait Level of Assist: 4 Gait Assistive Device: Walker Dmitry Wheelchair (FIM): 6 Distance: 50' Wheelchair Level of Assist: 3 Wheel 50 feet with 2 turns (QC: 2 PT Plan Problem List Problem List: Activity Tolerance, Functional Strength, Safety, Balance, Gait, Transfer, Bed Mobility, ROM Treatment/Plan Treatment Plan: Continue Plan of Care Treatment Plan: Bed Mobility, Concurrent Therapy, Education, Functional Activity Merlin, Functional Strength, Group Therapy, Gait, Safety, Therapeutic Exercise, Transfers Treatment Duration: Feb 04, 2019 Frequency: At least 5 of 7 days/Wk (IRF) Estimated Hrs Per Day: 1.5 hours per day Patient and/or Family Agrees t: Yes Safety Risks/Education Patient Education: Transfer Techniques, Correct Positioning, W/C Management, Safety Issues Teaching Recipient: Patient Teaching Methods: Demonstration, Discussion Response to Teaching: Reinforcement Needed Time/GCodes Time In: 0900 Time Out: 1000 Total Billed Treatment Time: 60 Total Billed Treatment 1 visit FA 60' co-treated for the whole 60 min. PT worked on bed mobility and transfers, sitting balance, standing, LE ROM, OT worked on dressing, cleaning, sitting balance and assist with transfers. CARLOS MCKEON PT Jan 17, 2019 10:01
--- NOTE | 2019-01-17 11:30 | Progress Note-Cardiology ---
Cardiology SOAP Progress Note Subjective: No visible signs of distress. Unable to communicate effectively. Objective: I&O/Vital Signs 01/17/19 01/17/19 09:00 16:14 Temp 97.0 Pulse 90 Resp 16 B/P (MAP) 117/83 (94) Pulse Ox 99 O2 Delivery Room Air Room Air 01/17/19 00:00 Intake Total 1135 ml Output Total 2050 ml Balance -915 ml Weight (Pounds): 164 Weight (Ounces): 5.0 Weight (Calculated Kilograms): [id number] Constitutional: well-developed, well-nourished, other (appears comfortable, aphasic) Respiratory: No accessory muscle use; other (fair to good bilat air entry) Cardiovascular: regular rate-rhythm, S1 and S2, systolic murmur (faint EMILY at card base) Gastrointestional: No tender; soft; No guarding, No rebound; audible bowel sounds Extremities: No clubbing, No cyanosis, No significant edema Neurologic/Psychiatric: other (aphasic, flaccid paralysis of the R side) Skin: No rash on exposed areas, No ulcerations on exposed areas Results/Procedures: Labs Laboratory Tests 01/16/19 21:11: Glucometer 178H 01/17/19 05:55: Glucometer 236H 01/17/19 08:06: White Blood Count 11.3H, Red Blood Count 3.90L, Hemoglobin 11.9L, Hematocrit 34L , Mean Corpuscular Volume 88, Mean Corpuscular Hemoglobin 31, Mean Corpuscular Hemoglobin Concent 35, Red Cell Distribution Width 13.8, Platelet Count 271, Mean Platelet Volume 11.6H, Neutrophils (%) (Auto) 75, Lymphocytes (%) (Auto) 16 , Monocytes (%) (Auto) 8, Eosinophils (%) (Auto) 1, Basophils (%) (Auto) 0, Neutrophils # (Auto) 8.5H, Lymphocytes # (Auto) 1.8, Monocytes # (Auto) 0.9, Eosinophils # (Auto) 0.2, Basophils # (Auto) 0.0, Prothrombin Time 13.6, INR Comment 1.0, Activated Partial Thromboplast Time 28, Sodium Level 134L, Potassium Level 4.4, Chloride Level 104, Carbon Dioxide Level 22, Anion Gap 8, Blood Urea Nitrogen 14, Creatinine 0.77, Estimat Glomerular Filtration Rate > 60 , BUN/Creatinine Ratio 18, Glucose Level 219H, Calcium Level 9.0, Corrected Calcium 9.6, Total Bilirubin 0.4, Aspartate Amino Transf (AST/SGOT) 26, Alanine Aminotransferase (ALT/SGPT) 26, Alkaline Phosphatase 80, Total Protein 6.7, Albumin 3.3 01/17/19 10:57: Glucometer 236H 01/17/19 16:11: Glucometer 204H Laboratory Tests 01/17/19 08:06 A/P: Assessment: 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 This is reported to be an ischemic stroke that converted to hemorrhagic stroke that was assoc's with hemorrhagic brain compression (treated conservatively by Neurosurgery at [facility]) DM II H/o cor stents in Sep 2018, but DAPT is being held because of the hemorrhagic component of the stroke. [facility], Neurology has recommended no antiplatelet therapy for at least 2 weeks Cardiac cath Aug [address] Morris showed severe in-stent re-stenosis in the prox LAD with haziness suggesting thrombus. Severe in-stent re-stenosis at the origin of the first diagonal branch and a focal 80% stenosis in the mid portion of the diagonal between two stented segments. The remainder of the LAD is diffusely stented with mild in-stent re-stenosis. Focal 80% mid-left cx stenosis. At which time repeat revascularization of LAD and first diagonal branch using a combination approach of laser artherectomy, cutting balloon PTCA and multiple ALYSSA stents were placed. Mid area of the first diagonal 2.5 x 8 mm Xience Alpine ALYSSA. The origin tx with a 2.5 x 8 mm Promus ALYSSA. LAD tx with 3 x 12 mm Promus ALYSSA. Cardiac cath of Sep [address] Morris showed a totally occluded diagonal branch off the LAD (medical management advised). Mid left cx stented with a 2.5 x 8 mm Promus ALYSSA. Echo of : LVEF 45%, septal hypokinesis, PASP 25 mmHg Reported h/o non-compliance with Plavix noted in cardiology progress note of Sep [address] Morris at [facility] (his primary copy writer) Plan: * Very complex management * Needs antiplatelet therapy to prevent fatal stent thrombosis, but is contraindicated from a neurologic standpoint because of h'hagic component of recent ischemic stroke * We recommend initiation of Plavix as soon as is feasible from the standpoint of stroke. Dr Alicia is managing stroke and its rehab * We have reviewed most recent cardiac cath records received from [facility] [place] (Aug 2018 and Sep 2018) * Continue therapy with bb and TRELL-inhibitor for ischemic cm * Monitor lab Physician Assessment Physician Assessment Not able to communicate verbally. Has not communicated any symptoms of cp or palp or shortness of breath Lungs: fair bilat air entry Cor: reg Ext: no c/c/e A&R * As documented in our note above that I updated (italics) and as noted below * Very complex case of multiple advance comorbidities and competing simultaneous indications and contraindications for antiplatelet therapy (see above) * We reviewed his coronary reports (summarized above) * Resume antiplatelet therapy as soon as allowed by Neurology ([facility]) and TORIE Mandel Jan 17, 2019 11:30 LETTY SANCHEZ MD FACP [facility] Jan 17, 2019 19:52
--- NOTE | 2019-01-17 12:53 | Individualized Plan of Care ---
Individualized Plan of Care Rehab Nursing IPOC Order Admission Date Jan 14, 2019 at 15:55 Current Orders Orders Admission Order(Inpt,Obs,Sdc) (01/14/19 12:15) Vital Signs: Routine (Order) 08,16,00 (01/14/19 12:15) Pigment Grinder-Inpt Rehab Con (01/14/19 12:15) Rehab Nursing Orders-Ipoc (01/14/19 12:15) Physical Therapy Rehab Orders (01/14/19 12:15) Occupational Therapy Rehab Ord (01/14/19 12:15) Speech Therapy Rehab Orders (01/14/19 12:15) Intake & Output 06,14,22 (01/14/19 12:15) Weekly Weight (Lbs) WEEK (01/14/19 12:15) Rehab-Intensity Of Therapy (01/14/19 12:15) Initiate Admission Nursing Pro .admission (01/14/19 12:15) Nursing Communication (Order) (01/14/19 12:15) Carvedilol Tablet (Coreg Tablet) (01/14/19 21:00) Ferrous Sulfate Tablet (Feosol Tablet) (01/14/19 17:00) Furosemide Tablet (Lasix Tablet) (01/14/19 16:15) Gabapentin Capsule/Tablet (Neurontin Cap (01/14/19 21:00) Levothyroxine Tablet (Synthroid Tablet) (01/15/19 06:30) Lisinopril Tablet (Zestril Tablet) (01/15/19 09:00) Nitroglycerin 0.4 Mg Btl 25's (Nitrostat (01/14/19 16:15) Ondansetron Oral Dissolve Tab (Zofran O (01/14/19 16:15) Pantoprazole Tablet (Protonix Tablet) (01/15/19 09:00) Vilazodone Tablet (Non-Form) (Viibryd) (01/15/19 09:00) (Nf) Dulaglutide (Trulicity) (01/14/19 16:15) Levetiracetam Tablet (Keppra Tablet) (01/14/19 21:00) Polyethylene Glycol Powder Pkt (Miralax (01/14/19 21:00) Rosuvastatin Tablet (Crestor Tablet) (01/14/19 21:00) Patient May Use Own Med,Single (Patient (01/14/19 16:30) Accucheck Achs ACHS (01/14/19 16:17) Insulin Aspart (Novolog) (Novolog (Charg (01/14/19 21:00) Patient Visit (01/14/19 ) Pt Eval Moderate Complexity (01/14/19 ) Ondansetron Oral Dissolve Tab (Zofran (01/14/19 16:30) Tube Feeding (Diet) (01/14/19 17:05) Cbc With Automated Diff (01/15/19 06:00) Comprehensive Metabolic Panel (01/15/19 06:00) Consult Cardiology (01/14/19 18:42) Obtain Records From (Order) (01/14/19 19:59) Ambulate 08,12 (01/15/19 08:00) Sequential Compression Device 08,20 (01/15/19 08:00) Dvt/Vte Risk - Notifiy Physici 08 (01/15/19 08:00) Code/Resuscitation (01/15/19 07:52) Patient Visit (01/15/19 ) Functional Activities, Ea 15 (01/15/19 ) Saliva Stimulant Mouth Labolt (Biotene Mo (01/15/19 11:45) Acetaminophen Tablet (Tylenol Tablet) (01/15/19 21:00) Acetaminophen Tablet (Tylenol Tablet) (01/15/19 14:15) Echo W Doppler/Color Flow (01/16/19 10:00) Vte Contraindication (01/15/19 18:48) Tube Feeding (Diet) (01/15/19 20:12) Lurasidone Tablet (Nonform) (Latuda Tabl (01/16/19 21:00) Consult Urology (01/16/19 15:39) Doxazosin Tablet (Cardura Tablet) (01/16/19 21:00) Doxazosin Tablet (Cardura Tablet) (01/16/19 21:00) Occult Blood Stool (01/16/19 19:29) Consult Physician (01/17/19 07:52) Cbc With Automated Diff (01/17/19 07:52) Comprehensive Metabolic Panel (01/17/19 07:52) Iron Test (Fe) (01/17/19 07:52) Protime With Inr (01/17/19 07:52) Partial Thromboplastin Time (01/17/19 07:52) Patient Visit (01/17/19 ) Functional Activities, Ea 15 (01/17/19 ) Patient Visit (01/17/19 ) Speech Sound Lang Comp (01/17/19 ) Patient Visit (01/17/19 ) Dysphagia Therapy (01/17/19 ) Insulin Determir (Per Unit) (Levemir (Pe (01/17/19 21:00) Insulin Aspart (Novolog) (Novolog (Charg (01/17/19 18:00) Rehab Nursing Orders: Ongoing Assess. of Cognitive Status, Ongoing Assess. of Function Status, Bladder Management, Bladder Scan, Bladder Training, Bowel Management, Bowel Training, Disease Management & Educaiton, DVT Prophylaxis, Fall Prevention, Fluid/Electrolyte/Nutrition Mgmt, Medication Management & Education, Management of Risks & Complications, Management of Skin Intergrity, Nutrition Management, Pain Management, Patient/Family Support, Safety Management , Swallow Precautions, Wound Management Intensity of Therapy to be met Patient to be seen: Min.3h per day/5 of 7d PT IPOC Problem List: Activity Tolerance, Functional Strength, Safety, Balance, Gait, Transfer, Bed Mobility, ROM Treatment Plan: Continue Plan of Care Bed Mobility, Concurrent Therapy, Education, Functional Activity Merlin, Functional Strength, Group Therapy, Gait, Safety, Therapeutic Exercise, Transfers Treatment Duration: Feb 04, 2019 Frequency: At least 5 of 7 days/Wk (IRF) Estimated Hrs Per Day: 1.5 hours per day OT IPOC Problems: Decreased Activ Tolerance, Decreased Safety Aware, Decreased UE Strength, Dependent Transfers, Impaired Bed Mobility, Impaired Cognition, Impaired Coordination, Impaired Funct Balance, Impaired I ADL's, Impaired Self- Care Skills, Restricted Funct UE ROM OT Treatment, Training and Edu: Yes OT Problems Pt admitted to ARU following acute hospitalization for CVA. Pt does not demonstrate any active movement of right UE. Pt is nonverbal and has difficulty following commands. Pt to benefit from skilled OT intervention for ADL training , transfers, ROM/strengthening, and safety education to increase level of independence and allow safe discharge plan. Plan of Care: ADL Retraining, Functional Mobility, Group Exercise/Act as Ind, UE Funct Exercise/Act, UE Neuromus Re-Ed/Coord, Visual/Perceptual Retrain Treatment Duration: Feb 04, 2019 Frequency: At least 5 of 7 days/Wk (IRF) Estimated Hrs Per Day: 1.5 hours per day [facility] Speech Therapy Treatment Plan: Continue Plan of Care Treatment Duration: Jan 28, 2019 Frequency: 5 times per week Estimated Hrs Per Day: .5 hour per day Pigment Grinder/Case Mgmt Pigment Grinder/Case Managemen: Discharge Planning Dietitian/Inventory Control Supervisor Dietitian/Inventory Control Supervisor to monitor nutritional status and make changes and/or recommendations as needed and work with speech pathology on dietary upgrades as the occur. Physician [facility] Medical Issues being managed closely and that require the 24 hour availability of a physician: Factor V Leiden with h/o DVT/PE now immobile and hemorrhagic stroke prohibits use of anticoagulation until 01/28/19 GI bleeding now with stable H/H prompting general surgery consultation Brief Synthesis of Preadmission Screen, Post-Admission Evaluation, and Therapy Evaluations: PT will focus on ROM of all extremities and focus on use of extremities right side OT will focus on regaining independent ADL's in order to return home Speech therapy will focus on swallowing and cognition and regain the ability to communicate in modified processes Medical Prognosis: Fair Anticipated Length of Stay: 14 days KAILEY RENE DO Jan 17, 2019 12:53
--- NOTE | 2019-01-17 13:19 | Consultation ---
History of Present Illness History of Present Illness Patient Consulted On(sorin/time) 01/17/19 13:14 Time Seen by Provider: 12:52 History of Present Illness Surgery asked to consult regarding hemoccult + stool, mild anemia. HPI per IM: HPI: This is a 53-year-old white male who has a past medical history of type II diabetes, CAD w/recent stents placed 09/28 and hypertension who was admitted to [facility] on 01/03/19 due to right sided weakness due to ischemic stroke. He was a phasic on admission and admitted to the ICU at [facility]. The stroke was located in the left MCA region. He did not qualify for TPA. Patient later converted to hemorrhagic stroke for which neurosurgery was consulted. No decompression surgery was required. Patient was on anticoagulation and antiplatelet therapy for the stroke occurred. He had had multiple stents placed in September for which he was on antiplatelet therapy. Both anticoagulation and antiplatelet agents were stopped because of the hemorrhagic progression. [facility] had spoken to neurology and cardiology and antiplatelets can be resumed 2 weeks from time of discharge from [facility] on 01/14/19. Those will be restarted on 01/28/19. Patient also had dysphagia as a result from the stroke and although NG tube was placed for feeding he's failed multiple swallow test and GI waist PEG tube. Currently patient aphasic with also expressive aphasia and requires feedings per PEG tube. Patient does have blanchable areas on his coccyx and right heel of which are being treated aggressively. No evidence of infection around the PEG tube. He did have incontinence stool this morning. His sister is involved in his care but I have not seen her arrived yet. Patient has never and has no other family members. Pt unable to answer any questions, all hx obtained from chart. Allergies and Home Medications Allergies Coded Allergies: tramadol (Verified Allergy, Severe, N/V, throat swells, 01/14/19) codeine (Verified Allergy, Intermediate, SOA,Wheezing, 01/14/19) citalopram (Verified Allergy, Mild, dizziness, 01/14/19) nalbuphine (Verified Allergy, Mild, itching, 01/14/19) Home Medications Carvedilol 12.5 Mg Tablet, 12.5 MG PO BID, (Reported) Dulaglutide 1.5 Mg/0.5 Ml Pen.injctr, 1.5 MG SQ WEEK, (Reported) Ferrous Sulfate 325 Mg Tablet, 325 MG PO BID, (Reported) Furosemide 20 Mg Tablet, 20 MG PO DAILY PRN for GAIN 3LBS IN 24H OR 5LB IN 72H, (Reported) Gabapentin 600 Mg Tablet, 600 MG PO TID, (Reported) Insulin Degludec 100 Unit/1 Ml Insuln.pen, SQ UD, (Reported) 10 UNITS DAILY IN THE MORNING AND TITRATE INSTRUCTED. MAX DAILY DOSE 40 UNITS Levetiracetam 100 Mg/1 Ml Solution, 500 MG PO BID, (Reported) Levothyroxine Sodium 125 Mcg Tablet, 125 MCG PO DAILY, (Reported) Lisinopril 5 Mg Tablet, 5 MG PO DAILY, (Reported) Lurasidone HCl 80 Mg Tablet, 160 MG PO HS, (Reported) TAKES 2 (80MG) TABLETS Nitroglycerin 0.4 Mg Tab.subl, 0.4 MG SL UD PRN for CHEST PAIN, (Reported) Ondansetron 8 Mg Tab.rapdis, 8 MG PO Q8H PRN for NAUSEA/VOMITING-1ST LINE, ( Reported) Pantoprazole Sodium 40 Mg Tablet.dr, 40 MG PO DAILY, (Reported) Polyethylene Glycol 3350 17 Gm Powd.pack, 17 GM PO BID, (Reported) Rosuvastatin Calcium 40 Mg Tablet, 40 MG PO HS, (Reported) Vilazodone Hydrochloride 40 Mg Tablet, 40 MG PO DAILY, (Reported) Patient Home Medication List Home Medication List Reviewed: Yes Past Fxeaxxv-Sspdfa-Plcoyl Hx Patient Social History Alcohol Use: Denies Use Recreational Drug Use: No (Hx of cannabis use) Smoking Status: Current Everyday Smoker Recent Foreign Travel: No Contact w/Someone Who Travel: No Recent Infectious Disease Expo: No Recent Hopitalizations: Yes (CVA) Physical Abuse Screen: No Sexual Abuse: No Immunizations Up To Date Date of Pneumonia Vaccine: Jul 15, 2013 Seasonal Allergies Seasonal Allergies: No Surgeries History of Surgeries: Yes Surgeries: Orthopedic Cardiovascular History of Cardiac Disorders: Yes Cardiac Disorders: Angina, Cardiomyopathy, Chronic Edema/Swelling, Coronary Artery Disease, Deep Vein Thrombosis, Heart Attack, High Cholesterol, Hypertension Neurological History of Neurological Disord: Yes Neurological Disorders: Stroke (01/03/19 ischemic and extended to hemorrhagic) Genitourinary Genitourinary Disorders: Kidney Stones, Renal Failure, Neurogenic Bladder Gastrointestinal History of Gastrointestinal Di: Yes Gastrointestinal Disorders: Gastroesophageal Reflux Musculoskeletal History of Musculoskeletal Dis: Yes Musculoskeletal Disorders: Chronic Back Pain Endocrine History of Endocrine Disorders: Yes Endocrine Disorders: Diabetes, Insulin dep HEENT History of HEENT Disorders: No Cancer History of Cancer: No Psychosocial History of Psychiatric Problem: Yes Behavioral Health Disorders: Anxiety, Suicide Attempts, Schizophrenia, Depression Integumentary Skin/Integumentary Disorders: Recent Skin Changes Blood Transfusions History of Blood Disorders: Yes (Factor V) Family Medical History Significant Family History: Other Conditions/Hx (unable to obtain, pt cannot answer) Review of Systems-General ROS-Unable to Obtain: Pt non-communicative Physical Exam-General Problems Physical Exam Vital Signs Vital Signs - First Documented 01/14/19 16:19 Temp 97.2 Pulse 72 Resp 16 B/P (MAP) 140/95 (110) Pulse Ox 98 O2 Delivery Room Air Capillary Refill : General Appearance: WD/WN, no apparent distress HEENT: pharynx normal; No pale conjunctivae (R), No pale conjunctivae (L) Neck: non-tender; No thyromegaly Respiratory: chest non-tender, lungs clear, normal breath sounds, no respiratory distress, no accessory muscle use Cardiovascular: regular rate, rhythm, no murmur Gastrointestinal: normal bowel sounds, non tender, soft, no organomegaly, no pulsatile mass, other (PEG tube in place) Extremities: non-tender, no pedal edema, no calf tenderness Neurologic/Psychiatric: 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, abnormal gait, aphasia, facial droop Skin: normal color, warm/dry Lymphatic: no adenopathy (neck, axilla or groin) Data Review Labs Laboratory Tests 01/16/19 18:09: Glucometer 196H 01/16/19 19:10: Stool Occult Blood Immunoassay POSITIVEH 01/16/19 21:11: Glucometer 178H 01/17/19 05:55: Glucometer 236H 01/17/19 08:06: White Blood Count 11.3H, Red Blood Count 3.90L, Hemoglobin 11.9L, Hematocrit 34L , Mean Corpuscular Volume 88, Mean Corpuscular Hemoglobin 31, Mean Corpuscular Hemoglobin Concent 35, Red Cell Distribution Width 13.8, Platelet Count 271, Mean Platelet Volume 11.6H, Neutrophils (%) (Auto) 75, Lymphocytes (%) (Auto) 16 , Monocytes (%) (Auto) 8, Eosinophils (%) (Auto) 1, Basophils (%) (Auto) 0, Neutrophils # (Auto) 8.5H, Lymphocytes # (Auto) 1.8, Monocytes # (Auto) 0.9, Eosinophils # (Auto) 0.2, Basophils # (Auto) 0.0, Prothrombin Time 13.6, INR Comment 1.0, Activated Partial Thromboplast Time 28, Sodium Level 134L, Potassium Level 4.4, Chloride Level 104, Carbon Dioxide Level 22, Anion Gap 8, Blood Urea Nitrogen 14, Creatinine 0.77, Estimat Glomerular Filtration Rate > 60 , BUN/Creatinine Ratio 18, Glucose Level 219H, Calcium Level 9.0, Corrected Calcium 9.6, Total Bilirubin 0.4, Aspartate Amino Transf (AST/SGOT) 26, Alanine Aminotransferase (ALT/SGPT) 26, Alkaline Phosphatase 80, Total Protein 6.7, Albumin 3.3 01/17/19 10:57: Glucometer 236H Assessment/Plan Assessment/Plan Assessment/Plan Hemoccult + Anemia CVA, Factor V leiden, CAD and Multiple others please see PM&R note Plan to do EGD and Colonoscopy to determine if there is any significant pathology causing the blood in BM. Nurse states "it just smelled like old blood , when I cleaned him." Will talk to whoever signs for consent; go over risks and complications. Not limited to pain, bleeding, infection, intestinal perforation or esophageal perforation. Clinical Quality Measures DVT/VTE Risk/Contraindication: Risk Factor Score Per Nursin RFS Level Per Nursing on Admit: 4+=Very High Other: HEMORRHAGIC CVA; ANTIPLATELET CAN BE RESUMED IN 2 WEEKS FRANKIE DE SOUZA DO Jan 17, 2019 13:19
--- NOTE | 2019-01-17 14:06 | NUR ---
SECURITY GUARD SUPERVISOR met with patient to complete initial assessment; however, due to severe aphasia, unable to verbalize and orientation is difficult to assess, SECURITY GUARD SUPERVISOR reached out to patients Joan fenton to obtain assessment information. Patient resided alone in a one level home in [place]. The has two steps at the entrance, without hand rails. Patient admitted to ARU from [facility] with CVA. Per sister, patient was independent with self care and ambulation with a cane for indoor use and a walker for community use. Per initial assessment from [facility], patient received 10hours of in-home assistance for cooking and cleaning.. Primary contact identified as sister, Joan of [place] at [phone] and cousin, Seth of [place] at [phone]. PCP verified as Dr. Bell Colin. Patient has MCR and MO ETHEL and utilizes [facility] [place] for local pharmacy needs. SECURITY GUARD SUPERVISOR reviewed typical rehab length of stay and weekly team conferences with Joan, she expressed no concerns. SECURITY GUARD SUPERVISOR will follow for appropriate discharge needs. Therapy indicates poor rehab potential, which may require SNF placement.
--- NOTE | 2019-01-17 14:40 | Therapy Group Daily Note ---
Therapy Daily Group Note Patient Education Topic Other List Below (memory strategies ) Exercises LE Seated Exercise, UE Exercise Session Ratio (pt:therapist): 4:1 Goal of Session: Memory Strategies understanding importance of memory for health Goal Met for this Session: Yes Pt Benefit of Group: Contributions to Others, Increased Functional Safety, Increased Functional Strength, Socialization Other/Notes Pt. attended group PT session this date. Pt. came and went via recliner w/c with assist for PEG tube IV. Pts. 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 Pt. was alert briefly during group but did not verbalize. Pts. lead exercise session by reading and illustrating/leading U&L extremity exercises. This pt. was lead through exercise with one on one for passive ROM and attempted stimuli. Pts. also shared memory strategies and played memory activity image matching game. Pt. to room after group with max assist 2 to bed ,tom at hand and all needs met. HOB elevated at 30deg Start Time: 13:00 Stop Time: 14:00 Total Billed Treatment Time: 60 Total Billed Treatment 1,GRP KAREN CRUZ DIRECTOR POST Jan 17, 2019 14:40
[2019-01-17 16:14] VITALS: BP 117/83
[2019-01-17] MEDS ORDERED: BISACODYL 5 MG (DULCOLAX) TABLET PO NR (17:00)
[2019-01-17] MEDS ORDERED: POLYETHYLENE GLYCOL 17 GM (MIRALAX) PACK PO NR (17:00)
[2019-01-17 20:30] VITALS: BP 100/74
[2019-01-17] MEDS: doxAzosin 2 MG (CARDURA) TAB PO SCH (20:42)
--- NOTE | 2019-01-17 21:06 | NUR ---
Pt supposed to be going for EGD and colonoscopy tomorrow. [address] Alicia contacted and asked if okay to hold HS levemir and Novolog doses as pt will be NPO at 0000. Dr. Alicia agrees to hold these medications.
[2019-01-17] MEDS: LURASIDONE 40 MG (LATUDA) TABLET NON-FORM PO SCH (21:13)
[2019-01-17] MEDS: ROSUVASTATIN 20 MG (CRESTOR) TABLET PO SCH (21:19)
[2019-01-18] MEDS: LEVOTHYROXINE 125 MCG (LEVOTHROID) TABLET PO SCH (03:50)
[2019-01-18] MEDS: FERROUS SULF 325 MG (IRON) TAB PO SCH ×2 (03:50→16:49)
[2019-01-18 05:07] VITALS: BP 111/79
[2019-01-18 08:00] VITALS: BP 97/74
--- NOTE | 2019-01-18 08:09 | PM&R Progress Note ---
Subjective HPI/CC On Admission Date Seen by Provider: Jan 18, 2019 Time Seen by Provider: 08:15 CC: Catastrophic CVA debility HPI: This is a 53-year-old white male who has a past medical history of type II diabetes, CAD w/recent stents placed 09/28 and hypertension who was admitted to [facility] on 01/03/19 due to right sided weakness due to ischemic stroke. He was a phasic on admission and admitted to the ICU at [facility]. The stroke was located in the left MCA region. He did not qualify for TPA. Patient later converted to hemorrhagic stroke for which neurosurgery was consulted. No decompression surgery was required. Patient was on anticoagulation and antiplatelet therapy for the stroke occurred. He had had multiple stents placed in September for which he was on antiplatelet therapy. Both anticoagulation and antiplatelet agents were stopped because of the hemorrhagic progression. [facility] had spoken to neurology and cardiology and antiplatelets can be resumed 2 weeks from time of discharge from [facility] on 01/14/19. Those will be restarted on 01/28/19. Patient also had dysphagia as a result from the stroke and although NG tube was placed for feeding he's failed multiple swallow test and GI waist PEG tube. Currently patient aphasic with also expressive aphasia and requires feedings per PEG tube. Patient does have blanchable areas on his coccyx and right heel of which are being treated aggressively. No evidence of infection around the PEG tube. He did have incontinence stool this morning. His sister is involved in his care but I have not seen her arrived yet. Patient has never and has no other family members. Barriers to returning home include lack of ability to communicate may be a safety hazard if that does not resolve in addition to tube feedings and right- sided paralysis will preclude him from likely doing that himself in addition to major fall risk if he cannot walk on his own. Subjective/Events-last exam Will DC continue CPAP because of the weight loss he has had he has not been wearing it Full code mandated by sister who is his DPOA EGD and colonoscopy scheduled today for Melena Hgb remains stable Dr. Klein has been consulted and managing the catheter Flomax is tolerated which was initiated by Dr. Klein Unsure of the recovery potential the pt is likely looking at halfway placement Needs antiplatelets and anticoagulation restarted on 01/28/19 since that will give enough time of the hemorrhagic stroke to prevent rebelled but factor 5 Leiden with hx of PE and DVT and pt now immobile pt at very high risk for recurrent DVT and subsequent saddle pulmonary emboli that could cause clinical decompensation. Review of Systems General: Fatigue Gastrointestinal: Melena Neurological: Weakness, Numbness, Incoordination, Change in speech Objective Exam Vital Signs Vital Signs Date Time Temp Pulse Resp B/P (MAP) Pulse Ox O2 Delivery O2 Flow Rate FiO2 01/18/19 17:14 Room Air 01/18/19 15:47 97.2 92 16 121/85 (97) 100 Capillary Refill : General Appearance: No Apparent Distress, WD/WN, Chronically ill, Cachetic, Other (unable to communicate) HEENT: PERRL/EOMI, Pharynx Normal Neck: Non Tender, Supple, Other (leans right) Respiratory: Lungs Clear, Normal Breath Sounds, No Accessory Muscle Use, No Respiratory Distress, Decreased Breath Sounds Cardiovascular: Regular Rate, Rhythm, No Edema, No Gallop, No JVD, No Murmur, Normal Peripheral Pulses Gastrointestinal: Normal Bowel Sounds, Non Tender, Soft, Other (PEG in place) Back: Normal Inspection, No CVA Tenderness, No Vertebral Tenderness, Decreased Range of Motion, Other (leans right) Extremity: Normal Capillary Refill, Normal Inspection, Non Tender, No Calf Tenderness Neurologic/Psychiatric: Alert, 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 Assessment/Plan Assessment and Plan Assess & Plan/Chief Complaint Assessment/Plan: (1) Hemorrhagic stroke-not an antiplatelet and anticoagulation candidate until per Neurology specialty (2) Ischemic stroke- catastrophic with right sided paralysis (3) CAD (coronary artery disease)-consulting Dr Burton (4) Presence of stent in coronary artery- 09/28 must stay off Plavix until (5) Aphasia-ST consult (6) Expressive aphasia- ST consult (7) Decubitus ulcer- monitor closely may need wound care if progresses (8) Smoker-smoking cessation (9) Diabetes mellitus-insulin management (10) Temple catheter in place-consulted Dr Klein for Thursday to help with DC due to infection risk (11) PEG (percutaneous endoscopic gastrostomy) status-feeding regimen per dietary (12) Dysphagia-NPO (13) Hypothyroidism (acquired)-Home med (14) Anxiety-home med (15) Acute kidney injury- monitor closely creatinine normal today (16) Factor 5 Leiden mutation, heterozygous-no anticoagulation of Xarelto home med until 01/28/19 (17) Hx pulmonary embolism- no anticoagulation of Xarelto home med until 01/28/19 (18) Hypertension- home med (19) History of ST elevation myocardial infarction (STEMI)-Cardiology appreciated (20) Colon polyps (21) Hyponatremia- monitor closely due to brain injury (22) Depression- home med restart (23) CHF (congestive heart failure)- check ECHO 40% last EF a few years ago (24) Cardiomyopathy, ischemic- check ECHO 40% last EF a few years ago (25) COPD (chronic obstructive pulmonary disease)- may need nebs (26) LILY (obstructive sleep apnea)- monitor O2 (27) GERD (gastroesophageal reflux disease)- PPI (28) Hyperlipidemia- statin (29) Renal calculus- no active issues (30) Schizophrenia- chronic disability (31) Marijuana abuse- cessation currently (32) Acute melena with stable H/H but in need of EGD and Colonoscopy per Dr Moffett Colonoscopy repeat tomorrow since prep was not adequate Needs anticoagulation with antiplatelet therapy restarted 01/28/19 (1) Hemorrhagic stroke (2) Ischemic stroke (3) Aphasia (4) Decubitus ulcer (5) COPD (chronic obstructive pulmonary disease) (6) Diabetes mellitus (7) Anxiety (8) Expressive aphasia (9) CAD (coronary artery disease) (10) Dysphagia (11) Depression (12) CHF (congestive heart failure) (13) Hyperlipidemia (14) Hyponatremia (15) Renal calculus (16) Marijuana abuse (17) Schizophrenia (18) GERD (gastroesophageal reflux disease) (19) Hypothyroidism (acquired) (20) Hypertension (21) CVA (cerebral vascular accident) (22) LILY (obstructive sleep apnea) (23) Cardiomyopathy, ischemic (24) Colon polyps (25) Temple catheter in place (26) Acute kidney injury (27) Factor 5 Leiden mutation, heterozygous (28) History of ST elevation myocardial infarction (STEMI) (29) Hx pulmonary embolism (30) Melena (31) Iron deficiency Clinical Quality Measures DVT/VTE Risk/Contraindication: Risk Factor Score Per Nursin RFS Level Per Nursing on Admit: 4+=Very High Other: HEMORRHAGIC CVA; ANTIPLATELET CAN BE RESUMED IN 2 WEEKS KAILEY RENE DO Jan 18, 2019 08:09
[2019-01-18] MEDS: PANTOPRAZOLE 40 MG (PROTONIX) TAB PO SCH (09:00)
[2019-01-18] MEDS: POLYETHYLENE GLYCOL 17 GM (MIRALAX) PACK PO SCH ×2 (09:00→20:02)
[2019-01-18] MEDS: CARVEDILOL 12.5 MG (COREG) TABLET PO SCH (09:00)
[2019-01-18] MEDS: GABAPENTIN 600 MG (NEURONTIN) TAB PO SCH ×3 (09:00→20:02)
[2019-01-18] MEDS: ACETAMINOPHEN 500 MG TAB (TYLENOL) PO SCH ×2 (09:00→20:02)
[2019-01-18] MEDS: lisINopril 5 MG (PRINIVIL) TABLET PO SCH ×2 (09:00→10:30)
--- NOTE | 2019-01-18 09:00 | NUR ---
TUBE FEEDINGS ON HOLD DUE TO NPO STATUS FOR EGD/COLONOSCOPY TODAY. MIRALAX HELD - HAS BEEN ON BOWEL PREP. OT REPORTS WATERY STOOL THIS AM. PATIENT GIVES THUMBS UP TO DENY PAIN.
--- NOTE | 2019-01-18 09:16 | Physical Therapy Daily Note ---
PT Daily Note-Current Subjective Patient in bed pre tx, has had a BM and needs cleaned. Gives no indication that he has pain. Will be co-treating with OT due to poor patient sitting and standing balance, poor endurance and right hemiplegia. Appearance Patient in bed post tx with nurse call, bed alarm on, tray, all needs met. Patient had another BM at the end of treatment and needed cleaned again and another brief put on. Mental Status Patient Orientation: Unable to Assess, Non-Verbal/Aphasic Attachments: PEG Tube Transfers Therapy Code Descriptions/Definitions Functional Starbuck Measure: 0=Not Assessed/NA 4=Minimal Assistance 1=Total Assistance 5=Supervision or Setup 2=Maximal Assistance 6=Modified Starbuck 3=Moderate Assistance 7=Complete Starbuck Therapy Quality Codes: 6 Independent with activity with or without an assistive device 5 Patient requires set up or clean up by helper. Patient completes activity by themselves 4 Supervision or touching assist (CGA). Kouts provide cues , steadying assist 3 The helper provides less than half the effort to complete the activity 2 The helper provides more than half the effort to complete the activity 1 Dependent. The helper does all the effort to complete an activity 7 Patient refused to complete or attempt activity 9 The patient did not perform the activity before the current illness or injury 88 Not attempted due to Medical conditions or safety concerns Transfers (B, C, W/C) (FIM): 1 Scootin Rollin Supine to/from Sit: 1 Sit to/from Stand: 2 Bed to/from Chair: 2 Patient leans heavily to the right side and constantly tries to lean forward. Poor safety awareness. Wheelchair Training Does the Pt Use a Wheelchair?: Yes Wheelchair (FIM): 2 Distance: 100' Wheelchair Level of Assist: 3 Type of Wheelchair: Manual Exercises RLE PROM in all planes. Neuromuscular sitting balance training Treatments Patient was cleaned and prepared for a shower at the beginning of treatment, he had had a BM. He was taken to the shower room and had a shower (poor balance, needs max assist, leans heavily to the right side), dressed and taken to therapy gym for sitting balance activities and ROM. Assessment Current Status: Poor Progress Patient seems to lean even more heavily to the right side. Constantly tries to lean very far forward and would fall if not for therapist assist. Poor safety awareness. PT Short Term Goals Short Term Goals Time Frame: Jan 21, 2019 Gait (FIM): 1 Gait Distance Comment: 8' Gait Level of Assist: 2 Gait Assistive Device: Parallel Bars PT Senior Living Goals Senior Living Goals PT Senior Living Goals Time Frame: Feb 04, 2019 Transfers (B,C,W/C) (FIM): 4 Sit to Lying (QC): 3 Lying-Sitting on Side/Bed(QC): 3 Sit to Stand (QC): 3 Rollin Roll Left to Right (QC): 3 Chair/Imo-ur-Wzoco Xfer(QC): 3 Car Transfer (QC): 3 Gait (FIM): 6 Distance: 20' Walk 10 feet (QC): 3 Gait Level of Assist: 4 Gait Assistive Device: Walker Dmitry Wheelchair (FIM): 6 Distance: 50' Wheelchair Level of Assist: 3 Wheel 50 feet with 2 turns (QC: 2 PT Plan Problem List Problem List: Activity Tolerance, Functional Strength, Safety, Balance, Gait, Transfer, Bed Mobility, ROM Treatment/Plan Treatment Plan: Continue Plan of Care Treatment Plan: Bed Mobility, Concurrent Therapy, Education, Functional Activity Merlin, Functional Strength, Group Therapy, Gait, Safety, Therapeutic Exercise, Transfers Treatment Duration: Feb 04, 2019 Frequency: At least 5 of 7 days/Wk (IRF) Estimated Hrs Per Day: 1.5 hours per day Patient and/or Family Agrees t: Yes Safety Risks/Education Patient Education: Transfer Techniques, Correct Positioning, W/C Management, Safety Issues Teaching Recipient: Patient Teaching Methods: Demonstration, Discussion Response to Teaching: Reinforcement Needed Time/GCodes Time In: 0800 Time Out: 0915 Total Billed Treatment Time: 75 Total Billed Treatment 1 visit FA 75' Co-treated for the whole 75 min. PT worked on bed mobility and transfers, sitting balance during shower, cleaning and changing for BM, sitting balance, LE ROM, OT worked on bathing, cleaning and changing for BM, UE exercises, assist with transfers. CARLOS MCKEON PT Jan 18, 2019 09:16
--- NOTE | 2019-01-18 09:46 | Occupational Ther Daily Note ---
OT Current Status-Daily Note Subjective Pt lying in bed, alert. Pt incontinent of bowel. Nrsg in room. Pt unable to voice pain. Responses to questions not accurate. Mental Status/Objective Patient Orientation: Person, Unable to Assess, Non-Verbal/Aphasic Therapy Code Descriptions/Definitions Functional [place] Measure: 0=Not Assessed/NA 4=Minimal Assistance 1=Total Assistance 5=Supervision or Setup 2=Maximal Assistance 6=Modified [place] 3=Moderate Assistance 7=Complete [place] Attachments: Temple Catheter, IV ADL-Treatment Co-treat with PT for skilled intervention due to poor patient sitting and standing balance, poor endurance and right hemiplegia. PT working on transfers , LE ROM/stretching, sitting balance and mobility. OT working on functional sitting, transfers, ADLs and R UE PROM. Tone noted in R UE with PT PROM/ stretching R LE. Pt tends to lean forward and push toward r side. Very poor activity tolerance throughout therapy. Poor ability to follow verbal/gestural/ physical cues. Pt completed shower. Transferred to shower chair with max A. Mod to max A to sit up in shower chair due to pt pushing toward R side and leaning forward. With cues pt able to wash luz area and stomach. Assist with all other bathing. Pt attempts to assist with donning Depends though takes assist x2, one to stand and one to hike pants over hips. Assist to don/doff socks and hospital gown. Therapy Code Descriptions/Definitions Functional [place] Measure: 0=Not Assessed/NA 4=Minimal Assistance 1=Total Assistance 5=Supervision or Setup 2=Maximal Assistance 6=Modified [place] 3=Moderate Assistance 7=Complete [place] Therapy Quality Codes: 6 Independent with activity with or without an assistive device 5 Patient requires set up or clean up by helper. Patient completes activity by themselves 4 Supervision or touching assist (CGA). [place] provide cues , steadying assist 3 The helper provides less than half the effort to complete the activity 2 The helper provides more than half the effort to complete the activity 1 Dependent. The helper does all the effort to complete an activity 7 Patient refused to complete or attempt activity 9 The patient did not perform the activity before the current illness or injury 88 Not attempted due to Medical conditions or safety concerns Grooming (FIM): 2 (Pt able to comb hair, assist only to sit upright.) Oral Hygiene (QC): 2 Bathing (FIM): 1 Bathing Location: Perineal Area Shower/Bathe Self (QC): 1 Lower Body Dressing (FIM): 1 Lower Body Dressing (QC): 1 On/Off Footwear (QC): 1 Toileting (FIM): 1 Toileting Hygiene (QC): 1 Transfers (B, C, W/C) (FIM): 1 Shower Transfer(FIM): 1 Other Treatment Pt transported to therapy gym. Transferred to therapy mat to work on sitting and strengthening. Pt required verbal and physical cues to stay in upright position. Pt could only accomplish 3 side to side exercises for core strengthening. Mod A to lay in supine. PROM to R UE. Subluxation noted in R shldr. Pt then transported back to room and transferred back to bed. W/c chair mobility completed to get back to room. Pt incontinent of bowel again, cleansed in bed and change briefs to diaper. After therapy, pt lying in bed with call light/phone in reach. All needs met in room. OT Short Term Goals Short Term Goals Time Frame: Jan 21, 2019 Grooming(FIM): 3 Upper Body Dressing(FIM): 3 Lower Body Dressing(FIM): 2 Toilet/Commode Transfer(FIM): 3 Additional Short Term Goals: 1-Demonstrate ADL Tasks, 2-Verbalize Understanding , 3-ImproveStrength/Merlin 1=Demonstrate adherence to instructed precautions during ADL tasks. 2=Patient will verbalize/demonstrate understanding of assistive devices/ modifications for ADL. 3=Patient will improve strength/tolerance for activity to enable patient to perform ADL's. OT Fpc Goals Fpc Goals Time Frame: Feb 04, 2019 Eating (FIM): 6 Eating (QC): 5 Groomin Oral Hygiene (QC): 4 Bathing(FIM): 6 Shower/Bathe Self (QC): 3 Upper Body Dressing(FIM): 6 Upper Body Dressing (QC): 3 Lower Body Dressing(FIM): 6 On/Off Footwear (QC): 3 Toileting(FIM): 6 Toileting Hygiene (QC): 3 Toilet/Commode Transfer(FIM): 4 Toilet/Commode Transfer (QC): 3 Shower Transfer(FIM): 3 Comprehension(FIM): 6 Expression (FIM): 6 Social Interaction(FIM): 6 Problem Solving(FIM): 6 Memory(FIM): 6 Additional Goals: 1-Demonstrate ADL Tasks, 2-Verbalize Understanding, 3- ImproveStrength/Merlin 1=Demonstrate adherence to instructed precautions during ADL tasks. 2=Patient will verbalize/demonstrate understanding of assistive devices/ modifications for ADL. 3=Patient will improve strength/tolerance for activity to enable patient to perform ADL's. OT Education/Plan Problem List/Assessment Assessment: Decreased Activ Tolerance, Decreased Safety Aware, Decreased UE Strength, Dependent Transfers, Impaired Bed Mobility, Impaired Cognition, Impaired Coordination, Impaired Funct Balance, Impaired I ADL's, Impaired Self- Care Skills, Restricted Funct UE ROM Pt admitted to ARU following acute hospitalization for CVA. Pt does not demonstrate any active movement of right UE. Pt is nonverbal and has difficulty following commands. Pt to benefit from skilled OT intervention for ADL training , transfers, ROM/strengthening, and safety education to increase level of independence and allow safe discharge plan. Discharge Recommendations Plan/Recommendations: Continue POC Treatment Plan/Plan of Care Patient would benefit from OT for education, treatment and training to promote independence in ADL's, mobility, safety and/or upper extremity function for ADL' s. Plan of Care: ADL Retraining, Functional Mobility, Group Exercise/Act as Ind, UE Funct Exercise/Act, UE Neuromus Re-Ed/Coord, Visual/Perceptual Retrain Treatment Duration: Feb 04, 2019 Frequency: At least 5 of 7 days/Wk (IRF) Estimated Hrs Per Day: 1.5 hours per day Rehab Potential: Guarded Time/GCodes Start Time: 08:00 Stop Time: 09:15 Total Time Billed (hr/min): 75 Billed Treatment Time 1 visit-ADL 3 (50 min) NM 2 (25 min) MARIEL EMMANUEL Jan 18, 2019 09:46
--- NOTE | 2019-01-18 10:00 | NUR ---
TALKED TO SISTER OSBALDO ON CODE STATUS. SHE WISHES FULL CODE. SHE WILL FILL OUT DPOA PAPERS TOMORROW WHEN SHE VISITS.
--- NOTE | 2019-01-18 10:10 | Speech Therapy Daily Note ---
Speech Daily Progress Note Subjective Date Seen by Provider: Jan 18, 2019 Time Seen by Provider: 00:30 The patient was resting in his bed when I entered the room. He said "yes" when asked if he was tired. Objective The patient completed simple y/n questions and naming picture x10 with gross approximations of words at 60% with mod verbal cues. Assessment Assessment Current Status: Poor Progress Treatment Plan Continue Plan of Care Communication Comprehension: 5 Expression: 1 Social Cognition Social Interaction: 3 Problem Solvin Memory: 4 Speech Short Term Goals Short Term Goals Short Term Goals 1) The patient will answer simple y/n questions presented by staff with 80% accuracy given minimal repetitions. 2) The patient will communicate his wants/needs with verbal, gestures or communication board with 80% accuracy given minimal cues. 3) The patient will follow simple 1 step directions at 80% with minimal repetitions. Speech Ecg Technician Goals Ecg Technician Goals The patient will be able to effectively communicate his wants/needs with a variety of communication means. Comprehension: 6 Expression: 6 Social Interaction: 6 Problem Solvin Memory: 6 Speech-Plan Patient/Family Goals Patient/Family Goals: It is unknown what the patient's plans will be post rehab. Treatment Plan Speech Therapy Treatment Plan: Continue Plan of Care The patient continues to grunt for y/n. Treatment Duration: Jan 28, 2019 Frequency: 5 times per week Estimated Hrs Per Day: .5 hour per day Rehab Potential: Guarded Barriers to Learning: New onset CVA, Severe expressive aphasia. Pt/Family Agrees to Plan: Yes Safety Risks/Education Teaching Recipient: Patient Teaching Methods: Discussion Response to Teaching: Verbalize Understanding Education Topics Provided: Utilization of his communication board. Time Speech Therapy Time In: 09:30 Speech Therapy Time Out: 10:00 Total Billed Time: 30 Billed Treatment Time 1, ELDER Marte Jan 18, 2019 10:10
--- NOTE | 2019-01-18 10:16 | Progress Note-Cardiology ---
Cardiology SOAP Progress Note Subjective: Unable to obtain any information from pt d/t aphasia. No visible signs of distress. Objective: I&O/Vital Signs 01/18/19 01/18/19 01/18/19 01/18/19 08:00 09:00 14:00 15:47 Temp 97.2 Pulse 70 88 92 Resp 16 B/P (MAP) 97/74 (82) 93/64 (74) 121/85 (97) Pulse Ox 100 O2 Delivery Room Air Room Air 01/18/19 17:14 O2 Delivery Room Air 01/18/19 00:00 Intake Total 1125 ml Output Total 1550 ml Balance -425 ml Weight (Pounds): 154 Weight (Ounces): 1.0 Weight (Calculated Kilograms): 69.986864 Constitutional: well-developed, well-nourished, other (appears comfortable, aphasic) Respiratory: No accessory muscle use; other (fair to good bilat air entry) Cardiovascular: regular rate-rhythm, S1 and S2, systolic murmur (faint EMILY at card base) Gastrointestional: No tender; soft; No guarding, No rebound; audible bowel sounds Extremities: No clubbing, No cyanosis, No significant edema Neurologic/Psychiatric: other (aphasic, flaccid paralysis of the R side) Skin: No rash on exposed areas, No ulcerations on exposed areas Results/Procedures: Labs Laboratory Tests 01/17/19 20:56: Glucometer 155H 01/18/19 03:43: Glucometer 168H 01/18/19 05:45: Glucometer 164H 01/18/19 10:53: Glucometer 202H 01/18/19 14:05: Glucometer 186H 01/18/19 15:46: Glucometer 176H A/P: Assessment: 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 This is reported to be an ischemic stroke that converted to hemorrhagic stroke that was assoc's with hemorrhagic brain compression (treated conservatively by [facility]surgery at [facility]) DM II H/o cor stents in Sep 2018, but DAPT is being held because of the hemorrhagic component of the stroke. According to the d/c summary dated 01/14/19 from [facility], Neurology has recommended no antiplatelet therapy for at least 2 weeks Cardiac cath Aug [address] Morris showed severe in-stent re-stenosis in the prox LAD with haziness suggesting thrombus. Severe in-stent re-stenosis at the origin of the first diagonal branch and a focal 80% stenosis in the mid portion of the diagonal between two stented segments. The remainder of the LAD is diffusely stented with mild in-stent re-stenosis. Focal 80% mid-left cx stenosis. At which time repeat revascularization of LAD and first diagonal branch using a combination approach of laser artherectomy, cutting balloon PTCA and multiple ALYSSA stents were placed. Mid area of the first diagonal 2.5 x 8 mm Xience Alpine ALYSSA. The origin tx with a 2.5 x 8 mm Promus ALYSSA. LAD tx with 3 x 12 mm Promus ALYSSA. Cardiac cath of Sep [address] Morris showed a totally occluded diagonal branch off the LAD (medical management advised). Mid left cx stented with a 2.5 x 8 mm Promus ALYSSA. Echo of : LVEF 45%, septal hypokinesis, PASP 25 mmHg Reported h/o non-compliance with Plavix noted in cardiology progress note of Sep [address] Morris at 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 Moffett Plan: * Very complex management * Needs antiplatelet therapy to prevent fatal stent thrombosis, but is contraindicated from a neurologic standpoint because of h'hagic component of recent ischemic stroke * We recommend initiation of Plavix as soon as is feasible from the standpoint of stroke. Dr Alicia is managing stroke and its rehab * We have reviewed most recent cardiac cath records received from [facility] (Aug 2018 and Sep 2018) * Continue therapy with bb and TRELL-inhibitor for ischemic cm - he has only been sporadically receiving medications - will reduce to try and facilitate compliance * Monitor lab * Schedule for EGD/colo later today d/t occult (+) stool on 01-16-19 Physician Assessment Physician Assessment Not able to provide any history Lungs: a few scattered rhonchi Cor: reg Ext: no c/c/e A&R * As documented in our note above that I updated (italics) and as noted below * Complex management due to reasons noted above TORIE PARIS Jan 18, 2019 10:15 LETTY SANCHEZ MD FACP FAC CCDS Jan 18, 2019 18:16
--- NOTE | 2019-01-18 10:16 | Progress Note-Urology ---
Progress Note-Urology Progress Notes/Assess & Plan Progress/Assessment & Plan TOLERATES CARDURA WELL. Final Diagnosis URINE RETENTION RAMBO CAMILO MD Jan 18, 2019 10:16
[2019-01-18] MEDS: CARVEDILOL 6.25 MG (COREG) TAB PO SCH ×2 (10:30→20:02)
[2019-01-18] MEDS ORDERED: BUDE10.2 INH (10:42)
[2019-01-18] MEDS ORDERED: RIVA20TA2 PO (10:42)
[2019-01-18] MEDS ORDERED: OXYC20TA54 PO (10:42)
[2019-01-18] MEDS ORDERED: FURO20TA4 PO (10:42)
[2019-01-18] MEDS ORDERED: LEVO175T5 PO (10:42)
[2019-01-18] MEDS ORDERED: DULA0.75 SC (10:42)
[2019-01-18] MEDS ORDERED: OXYC-465 PO (10:42)
[2019-01-18] MEDS ORDERED: LURA40TA3 PO (10:42)
[2019-01-18] MEDS ORDERED: ERGO50006 PO (10:42)
--- NOTE | 2019-01-18 11:00 | NUR ---
DR. DE SOUZA NOTIFIED THAT PATIENT EXPELLED WATERY STOOL EARLIER THIS AM, BUT NOW EXPELLED A BROWN/BLACK STOOL AND UNSURE IF HE IS CLEANED OUT. ORDER TO RECEIVE MG CITRATE.
[2019-01-18] MEDS: inSUlin ASPART (NovoLOG) 1 UNIT/0.01 ML (CHARGE PER UNIT) SC SCH ×2 (11:04→17:55)
[2019-01-18] MEDS ORDERED: MAGNESIUM CITRATE 300 ML BTL PO NR (11:15)
--- NOTE | 2019-01-18 13:00 | NUR ---
DOWNSTAIRS PER BED FOR EGD/COLONOSCOPY.
[2019-01-18] MEDS ORDERED: MIDAZOLAM 2 MG/2 ML (VERSED) VIAL ONE (13:09)
[2019-01-18] MEDS ORDERED: proPOfol 200 MG/20 ML (DIPRIVAN) VIAL IV ONE (13:09)
[2019-01-18] MEDS ORDERED: LACTATED RINGERS 1,000 ML IV ONE (13:10)
[2019-01-18] MEDS ORDERED: HURRICAINE EXT TUBE (BENZOCAINE) ONE (13:11)
[2019-01-18] MEDS ORDERED: PHENYLEPHRINE 100 MCG/ML 10 ML (ANESTHESIA) SYR ONE (13:31)
[2019-01-18 14:00] VITALS: BP 93/64
--- NOTE | 2019-01-18 14:00 | NUR ---
RETURNED TO ROOM. UNABLE TO DO COLONOSCOPY DUE TO BOWELS NOT CLEANED OUT WELL ENOUGH. WILL REDO PREP TODAY AND COLONOSCOPY RESCHEDULED FOR TOMORROW. WILL KEEP TUBE FEEDING OFF ORDERED. DR. RENE NOTIFIED AND INSULIN DOSAGES ADJUSTED WHILE NPO.
[2019-01-18] MEDS ORDERED: BISACODYL 5 MG (DULCOLAX) TABLET PO NR ×2 (14:45→17:00)
[2019-01-18] MEDS: LEVETIRACETAM 500 MG (KEPPRA) TAB PO SCH ×2 (15:13→20:01)
[2019-01-18 15:47] VITALS: BP 121/85
[2019-01-18] MEDS ORDERED: CATHETER FLUSH 10 ML SYR IV PRN (16:15)
--- NOTE | 2019-01-18 18:00 | NUR ---
STOOLS REMAIN BROWNISH IN COLOR. NO BLOOD NOTED. BOWEL PREP IN PROGESS. WAS MEDICATED WITH ZOFRAN AT START OF PREP AND APPEARS TO BE TOLERATING WELL.
[2019-01-18] MEDS ORDERED: POLYETHYLENE GLYCOL 17 GM (MIRALAX) PACK PO NR (20:00)
[2019-01-18] MEDS: ROSUVASTATIN 20 MG (CRESTOR) TABLET PO SCH (20:01)
[2019-01-18] MEDS: LURASIDONE 40 MG (LATUDA) TABLET NON-FORM PO SCH (20:01)
[2019-01-18] MEDS: doxAzosin 2 MG (CARDURA) TAB PO SCH (20:02)
[2019-01-18] MEDS: CATHETER FLUSH 10 ML SYR IV SCH (20:03)
[2019-01-19] MEDS: inSUlin ASPART (NovoLOG) 1 UNIT/0.01 ML (CHARGE PER UNIT) SC SCH (00:40)
[2019-01-19] MEDS: LEVOTHYROXINE 125 MCG (LEVOTHROID) TABLET PO SCH (00:41)
[2019-01-19] MEDS: FERROUS SULF 325 MG (IRON) TAB PO SCH ×2 (00:41→17:52)
[2019-01-19] MEDS: CATHETER FLUSH 10 ML SYR IV SCH ×3 (04:45→20:05)
[2019-01-19 05:43] VITALS: BP 117/80
--- NOTE | 2019-01-19 08:38 | PM&R Progress Note ---
Subjective HPI/CC On Admission Date Seen by Provider: Jan 19, 2019 Time Seen by Provider: 08:15 CC: Catastrophic CVA debility HPI: This is a 53-year-old white male who has a past medical history of type II diabetes, CAD w/recent stents placed 09/28 and hypertension who was admitted to [facility] on 01/03/19 due to right sided weakness due to ischemic stroke. He was a phasic on admission and admitted to the ICU at [facility]. The stroke was located in the left MCA region. He did not qualify for TPA. Patient later converted to hemorrhagic stroke for which neurosurgery was consulted. No decompression surgery was required. Patient was on anticoagulation and antiplatelet therapy for the stroke occurred. He had had multiple stents placed in September for which he was on antiplatelet therapy. Both anticoagulation and antiplatelet agents were stopped because of the hemorrhagic progression. [facility] had spoken to neurology and cardiology and antiplatelets can be resumed 2 weeks from time of discharge from [facility] on 01/14/19. Those will be restarted on 01/28/19. Patient also had dysphagia as a result from the stroke and although NG tube was placed for feeding he's failed multiple swallow test and GI waist PEG tube. Currently patient aphasic with also expressive aphasia and requires feedings per PEG tube. Patient does have blanchable areas on his coccyx and right heel of which are being treated aggressively. No evidence of infection around the PEG tube. He did have incontinence stool this morning. His sister is involved in his care but I have not seen her arrived yet. Patient has never and has no other family members. Barriers to returning home include lack of ability to communicate may be a safety hazard if that does not resolve in addition to tube feedings and right- sided paralysis will preclude him from likely doing that himself in addition to major fall risk if he cannot walk on his own. Subjective/Events-last exam Pt had a colonoscopy today since the prep was not adequate yesterday ACCU check was 180 this morning Pt will need a halfway at time of DC Speech is working with him with some good results Temple catheter remains Dr. Klein reports that he will likely require indwelling catheter super pubic placement Will need a level 2 screen due to the psych history in order to have placement in halfway so that will be started right away Can't start anticoagulation or anti platelets for another several days starting on 01/28/19 Pt at high risk for coronary stent occlusion and DVT PE Review of Systems Gastrointestinal: Melena Neurological: Weakness, Numbness, Incoordination, Confusion Objective Exam Vital Signs Vital Signs Date Time Temp Pulse Resp B/P (MAP) Pulse Ox O2 Delivery O2 Flow Rate FiO2 01/19/19 20:00 Room Air 01/19/19 18:28 97.0 95 20 109/77 (88) 97 Capillary Refill : General Appearance: No Apparent Distress, WD/WN, Chronically ill, Cachetic, Other (unable to communicate) HEENT: PERRL/EOMI, Pharynx Normal Neck: Non Tender, Supple, Other (leans right) Respiratory: Lungs Clear, Normal Breath Sounds, No Accessory Muscle Use, No Respiratory Distress, Decreased Breath Sounds Cardiovascular: Regular Rate, Rhythm, No Edema, No Gallop, No JVD, No Murmur, Normal Peripheral Pulses Gastrointestinal: Normal Bowel Sounds, Non Tender, Soft, Other (PEG in place) Back: Normal Inspection, No CVA Tenderness, No Vertebral Tenderness, Decreased Range of Motion, Other (leans right) Extremity: Normal Capillary Refill, Normal Inspection, Non Tender, No Calf Tenderness Neurologic/Psychiatric: Alert, 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 Assessment/Plan Assessment and Plan Assess & Plan/Chief Complaint Assessment/Plan: (1) Hemorrhagic stroke-not an antiplatelet and anticoagulation candidate until per Neurology specialty (2) Ischemic stroke- catastrophic with right sided paralysis (3) CAD (coronary artery disease)-consulting Dr Burton (4) Presence of stent in coronary artery- 09/28 must stay off Plavix until (5) Aphasia-ST consult (6) Expressive aphasia- ST consult (7) Decubitus ulcer- monitor closely may need wound care if progresses (8) Smoker-smoking cessation (9) Diabetes mellitus-insulin management (10) Temple catheter in place-consulted Dr Klein for Thursday to help with DC due to infection risk (11) PEG (percutaneous endoscopic gastrostomy) status-feeding regimen per dietary (12) Dysphagia-NPO (13) Hypothyroidism (acquired)-Home med (14) Anxiety-home med (15) Acute kidney injury- monitor closely creatinine normal today (16) Factor 5 Leiden mutation, heterozygous-no anticoagulation of Xarelto home med until 01/28/19 (17) Hx pulmonary embolism- no anticoagulation of Xarelto home med until 01/28/19 (18) Hypertension- home med (19) History of ST elevation myocardial infarction (STEMI)-Cardiology appreciated (20) Colon polyps (21) Hyponatremia- monitor closely due to brain injury (22) Depression- home med restart (23) CHF (congestive heart failure)- check ECHO 40% last EF a few years ago (24) Cardiomyopathy, ischemic- check ECHO 40% last EF a few years ago (25) COPD (chronic obstructive pulmonary disease)- may need nebs (26) LILY (obstructive sleep apnea)- monitor O2 (27) GERD (gastroesophageal reflux disease)- PPI (28) Hyperlipidemia- statin (29) Renal calculus- no active issues (30) Schizophrenia- chronic disability (31) Marijuana abuse- cessation currently (32) Acute melena with stable H/H s/p EGD and Colonoscopy per Dr Moffett Await endoscopy results Needs anticoagulation with antiplatelet therapy restarted 01/28/19 (1) Hemorrhagic stroke (2) Ischemic stroke (3) Aphasia (4) Decubitus ulcer (5) COPD (chronic obstructive pulmonary disease) (6) Diabetes mellitus (7) Anxiety (8) Expressive aphasia (9) CAD (coronary artery disease) (10) Dysphagia (11) Depression (12) CHF (congestive heart failure) (13) Hyperlipidemia (14) Hyponatremia (15) Renal calculus (16) Marijuana abuse (17) Schizophrenia (18) GERD (gastroesophageal reflux disease) (19) Hypothyroidism (acquired) (20) Hypertension (21) CVA (cerebral vascular accident) (22) LILY (obstructive sleep apnea) (23) Cardiomyopathy, ischemic (24) Colon polyps (25) Temple catheter in place (26) Acute kidney injury (27) Factor 5 Leiden mutation, heterozygous (28) History of ST elevation myocardial infarction (STEMI) (29) Hx pulmonary embolism (30) Melena (31) Iron deficiency Clinical Quality Measures DVT/VTE Risk/Contraindication: Risk Factor Score Per Nursin RFS Level Per Nursing on Admit: 4+=Very High Other: HEMORRHAGIC CVA; ANTIPLATELET CAN BE RESUMED IN 2 WEEKS KAILEY RENE DO Jan 19, 2019 08:38
[2019-01-19] MEDS: LEVETIRACETAM 500 MG (KEPPRA) TAB PO SCH ×2 (09:00→19:58)
[2019-01-19] MEDS: PANTOPRAZOLE 40 MG (PROTONIX) TAB PO SCH (09:00)
[2019-01-19] MEDS: CARVEDILOL 6.25 MG (COREG) TAB PO SCH ×2 (09:21→19:58)
[2019-01-19] MEDS: POLYETHYLENE GLYCOL 17 GM (MIRALAX) PACK PO SCH ×2 (09:21→19:35)
--- NOTE | 2019-01-19 09:21 | Physical Therapy Daily Note ---
PT Daily Note-Current Subjective Pt laying Supine in bed upon arrival. Pt agrees to PT/OT co-treat. Pt more alert today. Pain Comment: Pt unable to assess pain accurately. Mental Status Patient Orientation: Person, Non-Verbal/Aphasic Attachments: PEG Tube, Temple Catheter, Other-See Comments (Sling for R UE) Transfers Therapy Code Descriptions/Definitions Functional [place] Measure: 0=Not Assessed/NA 4=Minimal Assistance 1=Total Assistance 5=Supervision or Setup 2=Maximal Assistance 6=Modified [place] 3=Moderate Assistance 7=Complete [place] Therapy Quality Codes: 6 Independent with activity with or without an assistive device 5 Patient requires set up or clean up by helper. Patient completes activity by themselves 4 Supervision or touching assist (CGA). [place] provide cues , steadying assist 3 The helper provides less than half the effort to complete the activity 2 The helper provides more than half the effort to complete the activity 1 Dependent. The helper does all the effort to complete an activity 7 Patient refused to complete or attempt activity 9 The patient did not perform the activity before the current illness or injury 88 Not attempted due to Medical conditions or safety concerns Scootin Rollin Supine to/from Sit: 1 Sit to/from Stand: 1 Sit to Lying (QC): 1 Sit to Stand (QC): 1 Chair/Wql-ah-Velue Xfer(QC): 1 Bed to/from Chair: 1 TAFE LECTURER blocks knees during transfers as well as lifts BLE onto mat for Supine stretching. Weight Bearing Weight Bearing/Tolerated Weight Bearing/Tolerated Wheelchair Training Does the Pt Use a Wheelchair?: Yes Wheelchair Distance: 9=364-70 ft Distance: 125' Wheelchair Level of Assist: 1 Wheel 50 ft with 2 turns (QC): 1 Type of Wheelchair: Manual Exercises NuStep Minutes: 5 NuStep Workload: 1 Treatments Co-treat with PT for skilled intervention due to poor patient sitting and standing balance, poor endurance and right hemiplegia. PT working on transfers , LE ROM/stretching, sitting balance and mobility. OT working on functional sitting, transfers, ADLs and R UE PROM. Tone noted in R UE with PT PROM/ stretching R LE. Pt tends to lean forward and push toward r side. Very poor activity tolerance throughout therapy. Poor ability to follow verbal/gestural/ physical cues. Max A for upper body dressing. Pt attempts to assist with donning Depends though takes assist x2, one to stand and one to hike pants over hips. When donning/doffing pants in bed pt is able to bridge with assist then pt assist to hike over hips. Assist to don/doff socks and hospital gown. Pt resting Supine in bed at end of tx with all needs met. Assessment Current Status: Fair Progress Pt demonstrates improved strength and alertness during tx until pt fatigues late in tx and much more dependent. PT Short Term Goals Short Term Goals Time Frame: Jan 21, 2019 Gait (FIM): 1 Gait Distance Comment: 8' Gait Level of Assist: 2 Gait Assistive Device: Parallel Bars Wheelchair Distance: 100' PT Longterm Goals Longterm Goals PT Longterm Goals Time Frame: Feb 04, 2019 Transfers (B,C,W/C) (FIM): 4 Sit to Lying (QC): 3 Lying-Sitting on Side/Bed(QC): 3 Sit to Stand (QC): 3 Rollin Roll Left to Right (QC): 3 Chair/Zxs-kf-Ydovk Xfer(QC): 3 Car Transfer (QC): 3 Gait (FIM): 6 Distance: 20' Walk 10 feet (QC): 3 Gait Level of Assist: 4 Gait Assistive Device: Walker Dmitry Wheelchair (FIM): 6 Distance: 50' Wheelchair Level of Assist: 3 Wheel 50 feet with 2 turns (QC: 2 PT Plan Problem List Problem List: Activity Tolerance, Functional Strength, Safety, Balance, Gait, Transfer, Bed Mobility Treatment/Plan Treatment Plan: Continue Plan of Care Treatment Plan: Bed Mobility, Concurrent Therapy, Education, Functional Activity Merlin, Functional Strength, Group Therapy, Gait, Safety, Therapeutic Exercise, Transfers Treatment Duration: Feb 04, 2019 Frequency: At least 5 of 7 days/Wk (IRF) Estimated Hrs Per Day: 1.5 hours per day Patient and/or Family Agrees t: Yes Safety Risks/Education Patient Education: Transfer Techniques, Correct Positioning, Safety Issues Teaching Recipient: Patient Teaching Methods: Discussion Response to Teaching: Reinforcement Needed Time/GCodes Time In: 800 Time Out: 930 Total Billed Treatment Time: 90 Total Billed Treatment 1, EX x2 (30m) & FA x4 (60m) G Codes Necessary: ROSSANA Kay TAFE LECTURER Jan 19, 2019 09:21
[2019-01-19] MEDS: lisINopril 5 MG (PRINIVIL) TABLET PO SCH (09:22)
[2019-01-19] MEDS: GABAPENTIN 600 MG (NEURONTIN) TAB PO SCH ×3 (09:22→19:58)
[2019-01-19] MEDS: ACETAMINOPHEN 500 MG TAB (TYLENOL) PO SCH ×2 (09:22→19:58)
--- NOTE | 2019-01-19 09:24 | Occupational Ther Daily Note ---
OT Current Status-Daily Note Subjective Pt alert, lying in bed. Pt non-verbal, unable to assess pain accurately. Mental Status/Objective Patient Orientation: Person, Place, Time, Situation Therapy Code Descriptions/Definitions Functional [place] Measure: 0=Not Assessed/NA 4=Minimal Assistance 1=Total Assistance 5=Supervision or Setup 2=Maximal Assistance 6=Modified [place] 3=Moderate Assistance 7=Complete [place] ADL-Treatment Co-treat with PT for skilled intervention due to poor patient sitting and standing balance, poor endurance and right hemiplegia. PT working on transfers , LE ROM/stretching, sitting balance and mobility. OT working on functional sitting, transfers, ADLs and R UE PROM. Tone noted in R UE with PT PROM/ stretching R LE. Pt tends to lean forward and push toward r side. Very poor activity tolerance throughout therapy. Poor ability to follow verbal/gestural/ physical cues. Max A for upper body dressing. Pt attempts to assist with donning Depends though takes assist x2, one to stand and one to hike pants over hips. When donning/doffing pants in bed pt is able to bridge with assist then pt assist to hike over hips. Assist to don/doff socks and hospital gown. Therapy Code Descriptions/Definitions Functional [place] Measure: 0=Not Assessed/NA 4=Minimal Assistance 1=Total Assistance 5=Supervision or Setup 2=Maximal Assistance 6=Modified [place] 3=Moderate Assistance 7=Complete [place] Therapy Quality Codes: 6 Independent with activity with or without an assistive device 5 Patient requires set up or clean up by helper. Patient completes activity by themselves 4 Supervision or touching assist (CGA). [place] provide cues , steadying assist 3 The helper provides less than half the effort to complete the activity 2 The helper provides more than half the effort to complete the activity 1 Dependent. The helper does all the effort to complete an activity 7 Patient refused to complete or attempt activity 9 The patient did not perform the activity before the current illness or injury 88 Not attempted due to Medical conditions or safety concerns Upper Body (FIM): 2 Upper Body Dressing (QC): 2 Lower Body Dressing (FIM): 1 Lower Body Dressing (QC): 1 On/Off Footwear (QC): 2 Toileting (FIM): 1 Toileting Hygiene (QC): 1 Transfers (B, C, W/C) (FIM): 1 (Transfers have progressed though continues to require 2 person assist for safety.) Other Treatment Pt completed 3 min of UE/LE seated exercises then fatigued. Encouraged to complete 2 min more to increase activity tolerance for daily functional tasks. After therapy, pt lying in bed with call light/phone in reach. All needs met in room. OT Short Term Goals Short Term Goals Time Frame: Jan 21, 2019 Grooming(FIM): 3 Upper Body Dressing(FIM): 3 Lower Body Dressing(FIM): 2 Toilet/Commode Transfer(FIM): 3 Additional Short Term Goals: 1-Demonstrate ADL Tasks, 2-Verbalize Understanding , 3-ImproveStrength/Merlin 1=Demonstrate adherence to instructed precautions during ADL tasks. 2=Patient will verbalize/demonstrate understanding of assistive devices/ modifications for ADL. 3=Patient will improve strength/tolerance for activity to enable patient to perform ADL's. OT Jail Goals Radio News Writer Goals Time Frame: Feb 04, 2019 Eating (FIM): 6 Eating (QC): 5 Groomin Oral Hygiene (QC): 4 Bathing(FIM): 6 Shower/Bathe Self (QC): 3 Upper Body Dressing(FIM): 6 Upper Body Dressing (QC): 3 Lower Body Dressing(FIM): 6 On/Off Footwear (QC): 3 Toileting(FIM): 6 Toileting Hygiene (QC): 3 Toilet/Commode Transfer(FIM): 4 Toilet/Commode Transfer (QC): 3 Shower Transfer(FIM): 3 Comprehension(FIM): 6 Expression (FIM): 6 Social Interaction(FIM): 6 Problem Solving(FIM): 6 Memory(FIM): 6 Additional Goals: 1-Demonstrate ADL Tasks, 2-Verbalize Understanding, 3- ImproveStrength/Merlin 1=Demonstrate adherence to instructed precautions during ADL tasks. 2=Patient will verbalize/demonstrate understanding of assistive devices/ modifications for ADL. 3=Patient will improve strength/tolerance for activity to enable patient to perform ADL's. OT Education/Plan Problem List/Assessment Pt admitted to ARU following acute hospitalization for CVA. Pt does not demonstrate any active movement of right UE. Pt is nonverbal and has difficulty following commands. Pt to benefit from skilled OT intervention for ADL training , transfers, ROM/strengthening, and safety education to increase level of independence and allow safe discharge plan. Discharge Recommendations Plan/Recommendations: Continue POC Treatment Plan/Plan of Care Patient would benefit from OT for education, treatment and training to promote independence in ADL's, mobility, safety and/or upper extremity function for ADL' s. Plan of Care: ADL Retraining, Functional Mobility, Group Exercise/Act as Ind, UE Funct Exercise/Act, UE Neuromus Re-Ed/Coord, Visual/Perceptual Retrain Treatment Duration: Feb 04, 2019 Frequency: At least 5 of 7 days/Wk (IRF) Estimated Hrs Per Day: 1.5 hours per day Rehab Potential: Guarded Time/GCodes Start Time: 08:00 Stop Time: 09:15 Total Time Billed (hr/min): 75 Billed Treatment Time 1 visit-ADL 3 (50 min) NM 2 (25 min) MARIEL EMMANUEL Jan 19, 2019 09:24
--- NOTE | 2019-01-19 09:34 | Progress Note-Urology ---
Progress Note-Urology Progress Notes/Assess & Plan Progress/Assessment & Plan TOLERATES CARDURA WELL. GI ENDOSCOPIES TODAY. PLAN CYSTO TOMORROW AT BEDSIDE Final Diagnosis URINE RETENTION RAMBO CAMILO MD Jan 19, 2019 09:34
--- NOTE | 2019-01-19 10:26 | Speech Therapy Daily Note ---
Speech Daily Progress Note Subjective Date Seen by Provider: Jan 19, 2019 Time Seen by Provider: 00:30 Patient was resting in his bed when I entered his room. Objective Patient attempts to communicate y/n with grunts, rarely uses head motion with max verbal cues. Assessment Assessment Current Status: Poor Progress Treatment Plan Continue Plan of Care Communication Comprehension: 5 Expression: 1 Social Cognition Social Interaction: 3 Problem Solvin Memory: 4 Speech Short Term Goals Short Term Goals Short Term Goals 1) The patient will answer simple y/n questions presented by staff with 80% accuracy given minimal repetitions. 2) The patient will communicate his wants/needs with verbal, gestures or communication board with 80% accuracy given minimal cues. 3) The patient will follow simple 1 step directions at 80% with minimal repetitions. Speech Broaching Machine Repairer Goals Senior Living Goals The patient will be able to effectively communicate his wants/needs with a variety of communication means. Comprehension: 6 Expression: 6 Social Interaction: 6 Problem Solvin Memory: 6 Speech-Plan Patient/Family Goals Patient/Family Goals: Due to patient's nonverbal status it is unknown at this time what the patient's plans are post rehab. He most likely will require going to skilled. Treatment Plan Speech Therapy Treatment Plan: Continue Plan of Care Minimal progress to date. Treatment Duration: Jan 28, 2019 Frequency: 5 times per week Estimated Hrs Per Day: .5 hour per day Rehab Potential: Guarded Barriers to Learning: New onset CVA, severe expressive aphasia Pt/Family Agrees to Plan: Yes Safety Risks/Education Teaching Recipient: Patient Teaching Methods: Discussion Response to Teaching: Verbalize Understanding Education Topics Provided: Communication strategies with communication board. Time Speech Therapy Time In: 09:30 Speech Therapy Time Out: 10:00 Total Billed Time: 30 Billed Treatment Time 1, ELDER Marte Jan 19, 2019 10:26
--- NOTE | 2019-01-19 10:40 | Progress Note ---
Subjective Time Seen by a Provider: 10:29 Subjective/Events-last exam Pt seen and examined, no changes. Nurse states his BM's are clear now. Review of Systems General: No Chills, No Night Sweats Pulmonary: No Dyspnea, No Cough Gastrointestinal: Diarrhea; No: Vomiting Objective Exam Vital Signs Date Time Temp Pulse Resp B/P (MAP) Pulse Ox O2 Delivery O2 Flow Rate FiO2 01/19/19 09:00 Room Air 01/19/19 05:43 97.9 89 18 117/80 (92) 98 Room Air 01/18/19 21:48 Room Air 01/18/19 17:14 Room Air 01/18/19 15:47 97.2 92 16 121/85 (97) 100 Room Air 01/18/19 14:00 88 93/64 (74) I & O 01/19/19 07:00 Intake Total 400 ml Output Total 800 ml Balance -400 ml Capillary Refill : General Appearance: No Apparent Distress, WD/WN, Chronically ill, Cachetic, Other (unable to communicate) HEENT: Pharynx Normal Neck: Non Tender, Supple, Other (leans right) Respiratory: Lungs Clear, Normal Breath Sounds, No Accessory Muscle Use, No Respiratory Distress, Decreased Breath Sounds Cardiovascular: Regular Rate, Rhythm, No Edema, No Murmur, Normal Peripheral Pulses Gastrointestinal: normal bowel sounds, non tender, soft, no organomegaly, no pulsatile mass, other (PEG tube in place) Extremity: No Calf Tenderness, No Pedal Edema Neurologic/Psychiatric: Alert, Abnormal roper operator II-XII, Abnormal Gait, Aphasia, Depressed Affect, Facial Droop, Motor Weakness (right) Skin: Normal Color, Warm/Dry Results Lab Laboratory Tests 01/18/19 10:53: Glucometer 202H 01/18/19 14:05: Glucometer 186H 01/18/19 15:46: Glucometer 176H 01/19/19 00:01: Glucometer 162H 01/19/19 06:04: Glucometer 186H Assessment/Plan Assessment/Plan Assessment/Plan Hemoccult + Anemia CVA, Factor V leiden, CAD and Multiple others please see PM&R note EGD performed yesterday; no obvious ulcers or cause seen for GI Bleed, he did have some mild inflammation. Unfortunately unable to do colonoscopy because pt had fully formed fecal material in the rectum, couldn't even get scope past this area. Pt got repeat bowel prep last night and will reattempt colonoscopy today. Clinical Quality Measures DVT/VTE Risk/Contraindication: Risk Factor Score Per Nursin RFS Level Per Nursing on Admit: 4+=Very High Other: HEMORRHAGIC CVA; ANTIPLATELET CAN BE RESUMED IN 2 WEEKS FRANKIE DE SOUZA DO Jan 19, 2019 10:40
[2019-01-19] MEDS ORDERED: CLOP75TA69 PO (10:48)
[2019-01-19] MEDS ORDERED: NF-ESOM40C PO (11:12)
--- NOTE | 2019-01-19 11:31 | NUR ---
UPDATED MED REC TO THE LIST OF MEDICATIONS RECENTLY FILLED AT [facility] IN [place] AND [facility] IN [place]. I COMPARED THE DISCHARGE ORDERS FROM [facility] BUT SOME OF THOSE WERE DIFFERENT DOSAGES. NOTE THE FOLLOWING CHANGES WERE MADE AT DISCHARGE FROM [facility] THAT ARE NOT CURRENTLY REFLECTED ON THE HOME MED REC: START TAKING: LEVETIRACETAM 100MG/ML SOLUTION -5ML BID STOP TAKING: OXYCONTIN 20MG BID PERCOCET 10-325MG QID PRN XARELTO 20MG DAILY LUNESTA (HAS NOT BEEN FILLED RECENTLY THAT I CAN FIND AT PHARMACY OR [facility], DID NOT PUT ON MED REC) PLAVIX WAS NOT ADDRESS ON THE DISCHARGE FROM [facility] HOWEVER IT WAS NOTED THAT THE PATIENT WAS ON ANTIPLATELETS PRIOR TO ADMISSION AT [facility]. THE PLAVIX WAS PAST DUE FOR REFILL HAVING BEEN LAST FILLED #30 10-15-18. I DID ADD IT TO THE MED REC AT THIS TIME WITH THE PAST DUE FILL DATE NOTED SINCE THE PLAN IS TO RESUME IT IN THE FUTURE. [facility] FILLED: 12-27-18 OXYCODONE 10-325MG QID PRN #120 (TORIE STETIMAING) 12-27-18 [facility]60 [facility] 12-21-18 ZOFRAN ODT 8MG Q8H PRN #20 (CESAR MITCHELL) 11-24-18 GABAPENTIN 600MG TID #90 (TORIEHER JIANG) PAST DUE FOR REFILL BUT WAS CONTINUED ON DISCHARGE MED LIST FROM [facility] FILLED: 12-30-18 ESOMEPRAZOLE 40MG DAILY #16 (OSBALDO PEREZ) UNCLEAR IF THIS WAS SHORT TERM, IN ADDITION, OR TO REPLACE PROTONIX) 12-14-18 LATUDA 40MG Q EVENING #30 ([facility] HAD 160MG HS HOWEVER HASN'T FILLED THAT DOSE) 12-14-18 SYMBICORT 160-4.5 2 PUFFS BID (OSBALDO PEREZ) 12-14-18 CARVEDILOL 12.5MG BID (NADEGE MARTINEZ) 12-14-18 TRULICITY 0.75ML WEEKLY (OSBALDO PEREZ) [facility] HAD 1.5 DOSE) 12-14-18 VITAMIN D 50,000 EVERY OTHER WEEK #2 (OSBALDO [facility]) PHARMACY STATES D2 -02-27 FUROSEMIDE 20MG DAILY AND PRN WITH WEIGHT GAIN #45 (S[place] CLA[place]) 3-5-19 XARELTO 20MG DAILY #30 (NADEGE MARTINEZ) 3-5-19 LISINOPRIL 5MG DAILY #30 ([place] SHANON) 3-5-19 PANTOPRAZOLE 40MG DAILY #30 (RAI LUGO) 3-5-19 LEVOTHYROXINE 175MCG DAILY #30 OSBALDO [facility] ([facility] HAD 125MCG) 3-5-19 ROSUVASTATIN 40MG DAILY #30 (OSBALDO [facility]) 2--19 DEPAKOTE ER 500 BID #60 MACHO MOSS (NOT TAKING) 2--19 VIIBRYD 40MG DAILY #30 MACHO MOSS (WAS STILL ON CURRENT MED LIST FROM MACHO MOSS'S OFFICE HOWEVER PAST DUE FOR REFILL AND PHARMACY STATED REFILL DENIED) 11-13-18 PRAZOSIN 2MG HS #30 MACHO MOSS (NOT TAKING) 10-15-18 PLAVIX 75MG DAILY #30 (DEEP FELIPE) 09-14-18 TRESIBA 10 UNITS AM AND TITRATE DIRECTED MAX [address] VIANEY MOSS'S OFFICE FOR A LIST OF CURRENT MEDICATIONS SINCE HIS DOSES APPEAR TO HAVE BEEN BEING ADJUSTED AND SOME ARE PAST DUE FOR REFILL. I WAS CALLED BACK BY A NURSE FROM [facility]) HER DIRECT NUMBER IS [phone]. SHE FAXED OVER A LIST OF MEDICATIONS. THE LATUDA 40MG HAD A END DATE OF 12-24-18 AND THE VIIBRYD 40MG END DATE 11-26-18 HOWEVER WHEN I CALLED HER BACK TO CLARIFY THAT SHE STATES SHE THOUGHT IT WAS JUST WHEN THE 30 DAY SUPPLY THEY PRESCRIBED WOULD RUN OUT. ALSO ON THAT LIST THAT WAS NOT ADDRESSED AT THE DISCHARGE FROM [facility] WAS ASPIRIN 81MG, I DID NOT PUT IT ON THE MED REC AT THIS TIME. ALSO LISTED WAS REPATHA. I CALLED DR. MARTINEZ'S OFFICE AND THEY DO NOT HAVE RECORD OF THAT ON THE PATIENTS MED LIST. I DID NOT INCLUDE IT ON THE MED REC AT THIS TIME. ALSO LISTED ON THE LIST FROM [facility] WERE IRON 325MG BID AND MIRALAX BID, THESE ARE PROBABLY OTC MEDS. ALSO NITROGLYCERIN PRN.
--- NOTE | 2019-01-19 11:39 | Cardiology Progress Note ---
Subjective Date Seen by Provider: Jan 19, 2019 Time Seen by Provider: 11:34 Subjective/Events-last exam Unable to provide and hx or c/o secondary to aphasia. Appears in NAD. Objective-Cardiology Exam Last Set of Vital Signs Vital Signs 01/19/19 18:28 Temp 97.0 Pulse 95 Resp 20 B/P (MAP) 109/77 (88) Pulse Ox 97 O2 Delivery Room Air Capillary Refill : I&O Intake and Output 01/19/19 00:00 Intake Total 1600 ml Output Total 1750 ml Balance -150 ml Intake Oral 0 ml Tube Feeding 1200 ml Other 400 ml Output Urine Total 1750 ml # Bowel Movements 11 General: Cooperative, No Acute Distress HEENT: PERRLA Neck: Supple, +2 Carotid Pulse No Bruit Lungs: Clear to Auscultation, Normal Air Movement Heart: Regular Rate, Normal S1, Normal S2 Abdomen: Soft Extremities: No Clubbing, No Cyanosis, No Edema Skin: No Rashes, No Significant Lesion Neuro: Other (right hemiparesis, aphasia) A/P-Cardiology Admission Diagnosis CVA CAD DM Occult + stool Assessment/Plan 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 This is reported to be an ischemic stroke that converted to hemorrhagic stroke that was assoc's with hemorrhagic brain compression (treated conservatively by [facility]surgery at [facility]). Continue to PT. DM II CAD- H/o stents in Sep 2018, but DAPT is being held because of the hemorrhagic component of the stroke. According to the d/c summary dated 01/14/19 from [facility], Neurology has recommended no antiplatelet therapy for at least 2 weeks. Cardiac cath Aug [address] Morris showed severe in-stent re-stenosis in the prox LAD with haziness suggesting thrombus. Severe in-stent re-stenosis at the origin of the first diagonal branch and a focal 80% stenosis in the mid portion of the diagonal between two stented segments. The remainder of the LAD is diffusely stented with mild in-stent re-stenosis. Focal 80% mid-left cx stenosis. At which time repeat revascularization of LAD and first diagonal branch using a combination approach of laser artherectomy, cutting balloon PTCA and multiple ALYSSA stents were placed. Mid area of the first diagonal 2.5 x 8 mm Xience Alpine ALYSSA. The origin tx with a 2.5 x 8 mm Promus ALYSSA. LAD tx with 3 x 12 mm Promus ALYSSA. Cardiac cath of Sep [address] Morris showed a totally occluded diagonal branch off the LAD (medical management advised). Mid left cx stented with a 2.5 x 8 mm Promus ALYSSA. Echo of : LVEF 45%, septal hypokinesis, PASP 25 mmHg Reported h/o non-compliance with Plavix noted in cardiology progress note of Sep [address] 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 Moffett Clinical Quality Measures DVT/VTE Risk/Contraindication: Risk Factor Score Per Nursin RFS Level Per Nursing on Admit: 4+=Very High Other: HEMORRHAGIC CVA; ANTIPLATELET CAN BE RESUMED IN 2 WEEKS Supervisory-Addendum Brief Supervisory Addendum Participated in pt care: history, MDM, physical Personally performed: exam, history, MDM Care discussed with: DINORAH Results interpretation: agree with documentation Notes: Patient was seen and evaluated, sleeping. Management was discussed with Irma. I reviewed the record. Agree with the current management plan, continue to hold aspirin and Plavix at this time, continue with physical therapy. IRMA VENEGAS Jan 19, 2019 11:39 am OPHELIA JONES MD Jan 19, 2019 6:42 pm
--- NOTE | 2019-01-19 12:30 | NUR ---
Patient taken to Surgery via bed.
--- NOTE | 2019-01-19 17:01 | NUR ---
BRAIN SURGEON met with patient and patient's sister to review team conference summary. Patient remains aphasic and comprehension is difficult to assess. Per review of therapy input, patient continues to require co-treatment and remains dependent for all activities. He is requiring a 2 person assist for transfers and has challenges following cues. As patient admitted on 45, team has agreed to reevaluate progress on Thursday, 4-8. If improvement is not shown, discharge planning will need to occur to a SNF. Patient's sister appears to understand and has requested BRAIN SURGEON to reach out to [facility] to inquire about this option. Due to patient's secondary insurance as [place] Medicaid, BRAIN SURGEON recommended [place] options be considered. BRAIN SURGEON has also been approached by patient's sister on multiple occasions to request completion of DPOA documents. BRAIN SURGEON continues to reiterate that this cannot occur until patient's cognitive status can be assessed, due to severe aphasia his comprehension cannot be determined at this time. BRAIN SURGEON will follow patient's progress to determine discharge needs.
--- NOTE | 2019-01-19 17:39 | Wound Care Assessment ---
Wound Care Assessment Date Seen by Provider: Jan 19, 2019 Time Seen by Provider: 17:30 Chief Complaint Sacral ulcer. HPI The patient is a 53 year old male with limited mobility after stroke and Stage 2 pressure ulcer of the sacrum, present on admission. Dressings and off- loading ordered. The patient is urged to comply with off-loading. Allevyn dressing in place. Past Medical History: Admits Diabetes Type II, Admits Heart Disease, Admits Peripheral Artery Disease Recent debilitating stroke. COPD, schizophrenia. Smoking Status: Current Everyday Smoker Recreational Drug Use: No (Hx of cannabis use) Alcohol Use: Denies Use Review of Systems General: Other (Unable to obtain history due to aphasia. Nursing reorts no complaints.) Exam Vital Signs Date Time Temp Pulse Resp B/P (MAP) Pulse Ox O2 Delivery O2 Flow Rate FiO2 01/19/19 09:00 Room Air 01/19/19 05:43 97.9 89 18 117/80 (92) 98 Capillary Refill : General Appearance: no apparent distress Neck: normal inspection Respiratory: no respiratory distress Back: other (Sacral ulcer -- 1.7 x 1.5 x 0.3 cm, partial thickness, 100% slough , mod. s.s. drainage.) Results Laboratory Tests 01/19/19 00:01: Glucometer 162H 01/19/19 06:04: Glucometer 186H 01/19/19 10:55: Glucometer 189H Microbiology 01/18/19 MRSA Screen - Final, Complete MRSA not isolated Microbiology 01/18/19 MRSA Screen - Final, Complete MRSA not isolated Assessment/Plan/Dx 1. Pressure ulcer, sacrum, Stage 2. 2. Recent stroke with hemiplegia. 3. COPD, CAD, PVD, tobacco abuse. 4. Diabetes mellitus. 5. Schizophrenia. Plan: Dress with Allevyn, off-load with positioning. GERTRUDE WEBER MD Jan 19, 2019 17:39
[2019-01-19 18:28] VITALS: BP 109/77
[2019-01-19] MEDS: ROSUVASTATIN 20 MG (CRESTOR) TABLET PO SCH (19:58)
[2019-01-19] MEDS: LURASIDONE 40 MG (LATUDA) TABLET NON-FORM PO SCH (19:59)
[2019-01-19] MEDS: doxAzosin 2 MG (CARDURA) TAB PO SCH (19:59)
[2019-01-20 05:07] VITALS: BP 90/53
[2019-01-20] MEDS: LEVOTHYROXINE 125 MCG (LEVOTHROID) TABLET PO SCH (05:37)
[2019-01-20] MEDS: FERROUS SULF 325 MG (IRON) TAB PO SCH ×2 (05:37→17:48)
[2019-01-20] MEDS: CATHETER FLUSH 10 ML SYR IV SCH ×3 (05:38→20:23)
[2019-01-20] MEDS: inSUlin ASPART (NovoLOG) 1 UNIT/0.01 ML (CHARGE PER UNIT) SC SCH ×4 (05:38→23:58)
--- NOTE | 2019-01-20 08:12 | Cardiology Progress Note ---
Subjective Date Seen by Provider: Jan 20, 2019 Time Seen by Provider: 08:11 Subjective/Events-last exam Patient in bed in NAD. Objective-Cardiology Exam Last Set of Vital Signs Vital Signs 01/20/19 05:07 Temp 97.4 Pulse 77 Resp 16 B/P (MAP) 90/53 (65) Pulse Ox 97 O2 Delivery Room Air Capillary Refill : I&O Intake and Output 01/20/19 00:00 Intake Total 190 ml Output Total 750 ml Balance -560 ml Intake Oral 0 ml Tube Feeding 190 ml Output Urine Total 750 ml # Bowel Movements 3 General: Cooperative, No Acute Distress HEENT: PERRLA Neck: Supple, +2 Carotid Pulse No Bruit Lungs: Clear to Auscultation, Normal Air Movement Heart: Regular Rate, Normal S1, Normal S2 Abdomen: Soft Extremities: No Clubbing, No Cyanosis, No Edema Skin: No Rashes, No Significant Lesion Neuro: Other (right hemiparesis, aphasia) A/P-Cardiology Admission Diagnosis CVA CAD DM Occult + stool Assessment/Plan 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 This is reported to be an ischemic stroke that converted to hemorrhagic stroke that was assoc's with hemorrhagic brain compression (treated conservatively by Neurosurgery at [facility]). Continue with PT. DM II- management per medical services CAD- H/o stents in Sep 2018, but DAPT is being held because of the hemorrhagic component of the stroke. According to the d/c summary dated 01/14/19 from Kristen [facility]lain, Neurology has recommended no antiplatelet therapy for at least 2 weeks. Cardiac cath Aug [address] Morris showed severe in-stent re-stenosis in the prox LAD with haziness suggesting thrombus. Severe in-stent re-stenosis at the origin of the first diagonal branch and a focal 80% stenosis in the mid portion of the diagonal between two stented segments. The remainder of the LAD is diffusely stented with mild in-stent re-stenosis. Focal 80% mid-left cx stenosis. At which time repeat revascularization of LAD and first diagonal branch using a combination approach of laser artherectomy, cutting balloon PTCA and multiple ALYSSA stents were placed. Mid area of the first diagonal 2.5 x 8 mm Xience Alpine ALYSSA. The origin tx with a 2.5 x 8 mm Promus ALYSSA. LAD tx with 3 x 12 mm Promus ALYSSA. Cardiac cath of Sep [address] Morris showed a totally occluded diagonal branch off the LAD (medical management advised). Mid left cx stented with a 2.5 x 8 mm Promus ALYSSA. Echo of : LVEF 45%, septal hypokinesis, PASP 25 mmHg Reported h/o non-compliance with Plavix noted in cardiology progress note of Sep [address] Morris at [facility] (his primary rn dialysis) Occult (+) stool on 01-16-19 - EGD done revealed no active bleeding. Colonoscopy done yesterday, results pending. Clinical Quality Measures DVT/VTE Risk/Contraindication: Risk Factor Score Per Nursin RFS Level Per Nursing on Admit: 4+=Very High Other: HEMORRHAGIC CVA; ANTIPLATELET CAN BE RESUMED IN 2 WEEKS JOSSELINE VENEGAS Jan 20, 2019 08:12
--- NOTE | 2019-01-20 08:45 | PM&R Progress Note ---
Subjective HPI/CC On Admission Date Seen by Provider: Jan 20, 2019 Time Seen by Provider: 08:00 CC: Catastrophic CVA debility HPI: This is a 53-year-old white male who has a past medical history of type II diabetes, CAD w/recent stents placed 09/28 and hypertension who was admitted to [facility] on 01/03/19 due to right sided weakness due to ischemic stroke. He was a phasic on admission and admitted to the ICU at [facility]. The stroke was located in the left MCA region. He did not qualify for TPA. Patient later converted to hemorrhagic stroke for which neurosurgery was consulted. No decompression surgery was required. Patient was on anticoagulation and antiplatelet therapy for the stroke occurred. He had had multiple stents placed in September for which he was on antiplatelet therapy. Both anticoagulation and antiplatelet agents were stopped because of the hemorrhagic progression. [facility] had spoken to neurology and cardiology and antiplatelets can be resumed 2 weeks from time of discharge from [facility] on 01/14/19. Those will be restarted on 01/28/19. Patient also had dysphagia as a result from the stroke and although NG tube was placed for feeding he's failed multiple swallow test and GI waist PEG tube. Currently patient aphasic with also expressive aphasia and requires feedings per PEG tube. Patient does have blanchable areas on his coccyx and right heel of which are being treated aggressively. No evidence of infection around the PEG tube. He did have incontinence stool this morning. His sister is involved in his care but I have not seen her arrived yet. Patient has never and has no other family members. Barriers to returning home include lack of ability to communicate may be a safety hazard if that does not resolve in addition to tube feedings and right- sided paralysis will preclude him from likely doing that himself in addition to major fall risk if he cannot walk on his own. Subjective/Events-last exam Colonoscopy showed a rectal ulceration and biopsies were taken at that site. Having cystoscopy today. Temple catheter remains. Able to grunt answers. Overall does not appear to be in any pain. Reviewed meds and labs Reviewed PT/OT Uncertain of recovery potential after catastrophic CVA Review of Systems Neurological: Weakness, Numbness, Incoordination Objective Exam Vital Signs Vital Signs Date Time Temp Pulse Resp B/P (MAP) Pulse Ox O2 Delivery O2 Flow Rate FiO2 01/20/19 09:49 98.0 80 18 91/57 (68) 98 Room Air Capillary Refill : General Appearance: No Apparent Distress, WD/WN, Chronically ill, Cachetic, Other (unable to communicate) HEENT: PERRL/EOMI, Pharynx Normal Neck: Non Tender, Supple, Other (leans right) Respiratory: Lungs Clear, Normal Breath Sounds, No Accessory Muscle Use, No Respiratory Distress, Decreased Breath Sounds Cardiovascular: Regular Rate, Rhythm, No Edema, No Gallop, No JVD, No Murmur, Normal Peripheral Pulses Gastrointestinal: Normal Bowel Sounds, Non Tender, Soft, Other (PEG in place) Back: Normal Inspection, No CVA Tenderness, No Vertebral Tenderness, Decreased Range of Motion, Other (leans right) Extremity: Normal Capillary Refill, Normal Inspection, Non Tender, No Calf Tenderness Neurologic/Psychiatric: Alert, Abnormal layup worker II-XII, Abnormal Gait, Aphasia, Depressed Affect, Facial Droop, Motor Weakness (right) Skin: Normal Color, Warm/Dry Lymphatic: No Adenopathy Results/Procedures Lab Patient resulted labs reviewed. Assessment/Plan Assessment and Plan Assess & Plan/Chief Complaint Assessment/Plan: (1) Hemorrhagic stroke-not an antiplatelet and anticoagulation candidate until per Neurology specialty (2) Ischemic stroke- catastrophic with right sided paralysis (3) CAD (coronary artery disease)-consulting Dr Burton (4) Presence of stent in coronary artery- 09/28 must stay off Plavix until (5) Aphasia-ST consult (6) Expressive aphasia- ST consult (7) Decubitus ulcer- monitor closely may need wound care if progresses (8) Smoker-smoking cessation (9) Diabetes mellitus-insulin management (10) Temple catheter in place-consulted Dr Klein for Thursday to help with DC due to infection risk (11) PEG (percutaneous endoscopic gastrostomy) status-feeding regimen per dietary (12) Dysphagia-NPO (13) Hypothyroidism (acquired)-Home med (14) Anxiety-home med (15) Acute kidney injury- monitor closely creatinine normal today (16) Factor 5 Leiden mutation, heterozygous-no anticoagulation of Xarelto home med until 01/28/19 (17) Hx pulmonary embolism- no anticoagulation of Xarelto home med until 01/28/19 (18) Hypertension- home med (19) History of ST elevation myocardial infarction (STEMI)-Cardiology appreciated (20) Colon polyps (21) Hyponatremia- monitor closely due to brain injury (22) Depression- home med restart (23) CHF (congestive heart failure)- check ECHO 40% last EF a few years ago (24) Cardiomyopathy, ischemic- check ECHO 40% last EF a few years ago (25) COPD (chronic obstructive pulmonary disease)- may need nebs (26) LILY (obstructive sleep apnea)- monitor O2 (27) GERD (gastroesophageal reflux disease)- PPI (28) Hyperlipidemia- statin (29) Renal calculus- no active issues (30) Schizophrenia- chronic disability (31) Marijuana abuse- cessation currently (32) Acute melena with stable H/H s/p EGD and Colonoscopy per Dr Moffett Await endoscopy pathology results Needs anticoagulation with antiplatelet therapy restarted 01/28/19 (1) Hemorrhagic stroke (2) Ischemic stroke (3) Aphasia (4) Decubitus ulcer (5) COPD (chronic obstructive pulmonary disease) (6) Diabetes mellitus (7) Anxiety (8) Expressive aphasia (9) CAD (coronary artery disease) (10) Dysphagia (11) Depression (12) CHF (congestive heart failure) (13) Hyperlipidemia (14) Hyponatremia (15) Renal calculus (16) Marijuana abuse (17) Schizophrenia (18) GERD (gastroesophageal reflux disease) (19) Hypothyroidism (acquired) (20) Hypertension (21) CVA (cerebral vascular accident) (22) LILY (obstructive sleep apnea) (23) Cardiomyopathy, ischemic (24) Colon polyps (25) Temple catheter in place (26) Acute kidney injury (27) Factor 5 Leiden mutation, heterozygous (28) History of ST elevation myocardial infarction (STEMI) (29) Hx pulmonary embolism (30) Melena (31) Iron deficiency Clinical Quality Measures DVT/VTE Risk/Contraindication: Risk Factor Score Per Nursin RFS Level Per Nursing on Admit: 4+=Very High Other: HEMORRHAGIC CVA; ANTIPLATELET CAN BE RESUMED IN 2 WEEKS KAILEY RENE DO Jan 20, 2019 08:45
--- NOTE | 2019-01-20 09:11 | Occupational Ther Daily Note ---
OT Current Status-Daily Note Subjective Pt alert, lying in bed. Incontinent of bowel. Pt non-verbal/aphasic unable to determine pain level. Mental Status/Objective Patient Orientation: Person, Non-Verbal/Aphasic Therapy Code Descriptions/Definitions Functional [place] Measure: 0=Not Assessed/NA 4=Minimal Assistance 1=Total Assistance 5=Supervision or Setup 2=Maximal Assistance 6=Modified [place] 3=Moderate Assistance 7=Complete [place] Attachments: Temple Catheter, IV, PEG Tube ADL-Treatment Co-treat with PT for skilled intervention due to poor patient sitting and standing balance, poor endurance and right hemiplegia. PT working on transfers , LE ROM/stretching, sitting balance and mobility. OT working on functional sitting, transfers, ADLs and R UE PROM. Pt tends to lean forward and push toward r side. Very poor activity tolerance throughout therapy. Poor ability to follow verbal/gestural/physical cues. Pt completed shower. Transferred to shower chair with max A. Using chair with reclining back, pt able to complete shower with less physical cues to stay sitting upright. With cues pt able to wash luz area and stomach. Assist with all other bathing. Pt attempts to assist with donning Depends though takes assist x2, one to stand and one to hike pants over hips. Assist to don/doff socks and hospital gown. Loose grasp on parallel bars in standing, pt wt bearing mostly on L side. Pt stood for longer periods of time this treatment. After therapy, pt sitting in recliner with call light/phone in reach. All needs met in room. Therapy Code Descriptions/Definitions Functional [place] Measure: 0=Not Assessed/NA 4=Minimal Assistance 1=Total Assistance 5=Supervision or Setup 2=Maximal Assistance 6=Modified [place] 3=Moderate Assistance 7=Complete [place] Therapy Quality Codes: 6 Independent with activity with or without an assistive device 5 Patient requires set up or clean up by helper. Patient completes activity by themselves 4 Supervision or touching assist (CGA). [place] provide cues , steadying assist 3 The helper provides less than half the effort to complete the activity 2 The helper provides more than half the effort to complete the activity 1 Dependent. The helper does all the effort to complete an activity 7 Patient refused to complete or attempt activity 9 The patient did not perform the activity before the current illness or injury 88 Not attempted due to Medical conditions or safety concerns Bathing (FIM): 1 Toileting (FIM): 1 Toileting Hygiene (QC): 1 Shower Transfer(FIM): 1 OT Short Term Goals Short Term Goals Time Frame: Jan 21, 2019 Grooming(FIM): 3 Upper Body Dressing(FIM): 3 Lower Body Dressing(FIM): 2 Toilet/Commode Transfer(FIM): 3 Additional Short Term Goals: 1-Demonstrate ADL Tasks, 2-Verbalize Understanding , 3-ImproveStrength/Merlin 1=Demonstrate adherence to instructed precautions during ADL tasks. 2=Patient will verbalize/demonstrate understanding of assistive devices/ modifications for ADL. 3=Patient will improve strength/tolerance for activity to enable patient to perform ADL's. OT Payroll Tax Specialist Goals Payroll Tax Specialist Goals Time Frame: Feb 04, 2019 Eating (FIM): 6 Eating (QC): 5 Groomin Oral Hygiene (QC): 4 Bathing(FIM): 6 Shower/Bathe Self (QC): 3 Upper Body Dressing(FIM): 6 Upper Body Dressing (QC): 3 Lower Body Dressing(FIM): 6 On/Off Footwear (QC): 3 Toileting(FIM): 6 Toileting Hygiene (QC): 3 Toilet/Commode Transfer(FIM): 4 Toilet/Commode Transfer (QC): 3 Shower Transfer(FIM): 3 Comprehension(FIM): 6 Expression (FIM): 6 Social Interaction(FIM): 6 Problem Solving(FIM): 6 Memory(FIM): 6 Additional Goals: 1-Demonstrate ADL Tasks, 2-Verbalize Understanding, 3- ImproveStrength/Merlin 1=Demonstrate adherence to instructed precautions during ADL tasks. 2=Patient will verbalize/demonstrate understanding of assistive devices/ modifications for ADL. 3=Patient will improve strength/tolerance for activity to enable patient to perform ADL's. OT Education/Plan Problem List/Assessment Assessment: Decreased Activ Tolerance, Decreased Safety Aware, Decreased UE Strength, Dependent Transfers, Impaired Bed Mobility, Impaired Cognition, Impaired Coordination, Impaired Funct Balance, Impaired I ADL's, Impaired Self- Care Skills, Restricted Funct UE ROM Pt admitted to ARU following acute hospitalization for CVA. Pt does not demonstrate any active movement of right UE. Pt is nonverbal and has difficulty following commands. Pt to benefit from skilled OT intervention for ADL training , transfers, ROM/strengthening, and safety education to increase level of independence and allow safe discharge plan. Discharge Recommendations Plan/Recommendations: Continue POC Treatment Plan/Plan of Care Patient would benefit from OT for education, treatment and training to promote independence in ADL's, mobility, safety and/or upper extremity function for ADL' s. Plan of Care: ADL Retraining, Functional Mobility, Group Exercise/Act as Ind, UE Funct Exercise/Act, UE Neuromus Re-Ed/Coord, Visual/Perceptual Retrain Treatment Duration: Feb 04, 2019 Frequency: At least 5 of 7 days/Wk (IRF) Estimated Hrs Per Day: 1.5 hours per day Rehab Potential: Guarded Time/GCodes Start Time: 08:00 Stop Time: 09:15 Total Time Billed (hr/min): 75 Billed Treatment Time 1 visit-ADL 3 (45 min) NM 2 (30 min) co-treat with PT 75 min MARIEL EMMANUEL Jan 20, 2019 09:11
--- NOTE | 2019-01-20 09:14 | Physical Therapy Daily Note ---
PT Daily Note-Current Subjective Patient in bed pre tx, agrees to PT, cannot verbalize but does not seem to be in pain. Patient has had a BM and needs to be cleaned. He will also get a shower this morning. Will be co-treating with OT this morning. Appearance Patient in recliner post tx with nurse call, phone, tray, all needs met. Mental Status Attachments: PEG Tube, Temple Catheter Transfers Therapy Code Descriptions/Definitions Functional [place] Measure: 0=Not Assessed/NA 4=Minimal Assistance 1=Total Assistance 5=Supervision or Setup 2=Maximal Assistance 6=Modified [place] 3=Moderate Assistance 7=Complete [place] Therapy Quality Codes: 6 Independent with activity with or without an assistive device 5 Patient requires set up or clean up by helper. Patient completes activity by themselves 4 Supervision or touching assist (CGA). [place] provide cues , steadying assist 3 The helper provides less than half the effort to complete the activity 2 The helper provides more than half the effort to complete the activity 1 Dependent. The helper does all the effort to complete an activity 7 Patient refused to complete or attempt activity 9 The patient did not perform the activity before the current illness or injury 88 Not attempted due to Medical conditions or safety concerns Transfers (B, C, W/C) (FIM): 2 Scootin Rollin Supine to/from Sit: 2 Sit to/from Stand: 2 Bed to/from Chair: 2 Patient is able to assist with supine to sit and sit to stand and transfers but still needs max assist. Weight Bearing Weight Bearing/Tolerated Weight Bearing/Tolerated Wheelchair Training Does the Pt Use a Wheelchair?: Yes Wheelchair (FIM): 1 Type of Wheelchair: Manual Exercises RLE ROM in all planes, LLE LAQ and AP x20, standing in parallel bars x2 for about 2 min each time Treatments Patient had BM in bed and needed cleaned and dressed and taken to shower room, showered, dressed, taken to therapy gym for standing and ROM. Assessment Current Status: Poor Progress Patient seemed more alert but has unreliable yes/no answers. PT Short Term Goals Short Term Goals Time Frame: Jan 21, 2019 Gait (FIM): 1 Gait Distance Comment: 8' Gait Level of Assist: 2 Gait Assistive Device: Parallel Bars Wheelchair Distance: 125' PT Formation Fracturing Operator Goals Fpc Goals PT Formation Fracturing Operator Goals Time Frame: Feb 04, 2019 Transfers (B,C,W/C) (FIM): 4 Sit to Lying (QC): 3 Lying-Sitting on Side/Bed(QC): 3 Sit to Stand (QC): 3 Rollin Roll Left to Right (QC): 3 Chair/[id number] Xfer(QC): 3 Car Transfer (QC): 3 Gait (FIM): 6 Distance: 20' Walk 10 feet (QC): 3 Gait Level of Assist: 4 Gait Assistive Device: Walker Dmitry Wheelchair (FIM): 6 Distance: 50' Wheelchair Level of Assist: 3 Wheel 50 feet with 2 turns (QC: 2 PT Plan Problem List Problem List: Activity Tolerance, Functional Strength, Safety, Balance, Gait, Transfer, Bed Mobility, ROM Treatment/Plan Treatment Plan: Continue Plan of Care Treatment Plan: Bed Mobility, Concurrent Therapy, Education, Functional Activity Merlin, Functional Strength, Group Therapy, Gait, Safety, Therapeutic Exercise, Transfers Treatment Duration: Feb 04, 2019 Frequency: At least 5 of 7 days/Wk (IRF) Estimated Hrs Per Day: 1.5 hours per day Patient and/or Family Agrees t: Yes Safety Risks/Education Patient Education: Transfer Techniques, Correct Positioning, W/C Management, Safety Issues Teaching Recipient: Patient Teaching Methods: Demonstration, Discussion Response to Teaching: Reinforcement Needed Time/GCodes Time In: 0800 Time Out: 0915 Total Billed Treatment Time: 75 Total Billed Treatment 1 visit EX 15' FA 60' Co-treated for the whole 75 min. PT worked on bed mobility and transfers, wheelchair mobility, LE ROM, standing, and sitting balance during dressing and bathing. OT worked on dressing, bathing, cleaning after BM, UE ROM and positioning. CARLOS MCKEON PT Jan 20, 2019 09:14
[2019-01-20 09:49] VITALS: BP 91/57
[2019-01-20] MEDS: POLYETHYLENE GLYCOL 17 GM (MIRALAX) PACK PO SCH ×2 (09:53→20:22)
[2019-01-20] MEDS: LEVETIRACETAM 500 MG (KEPPRA) TAB PO SCH ×2 (09:53→20:22)
[2019-01-20] MEDS: ACETAMINOPHEN 500 MG TAB (TYLENOL) PO SCH ×2 (09:53→20:22)
[2019-01-20] MEDS: GABAPENTIN 600 MG (NEURONTIN) TAB PO SCH ×3 (09:53→20:22)
[2019-01-20] MEDS: PANTOPRAZOLE 40 MG (PROTONIX) TAB PO SCH (09:53)
--- NOTE | 2019-01-20 10:06 | Speech Therapy Daily Note ---
Speech Daily Progress Note Subjective Date Seen by Provider: Jan 20, 2019 Time Seen by Provider: 00:30 The patient was resting in his recliner when I entered his room. Objective Patient provided simple y/n questions with gross approximation verbal responses at 60% with max verbal cues and/or repetitions. Assessment Assessment Current Status: Poor Progress Communication Comprehension: 5 Expression: 1 Social Cognition Social Interaction: 3 Problem Solvin Memory: 4 Speech Short Term Goals Short Term Goals Short Term Goals 1) The patient will answer simple y/n questions presented by staff with 80% accuracy given minimal repetitions. 2) The patient will communicate his wants/needs with verbal, gestures or communication board with 80% accuracy given minimal cues. 3) The patient will follow simple 1 step directions at 80% with minimal repetitions. Speech Mortuary Technician Goals Mortuary Technician Goals The patient will be able to effectively communicate his wants/needs with a variety of communication means. Comprehension: 6 Expression: 6 Social Interaction: 6 Problem Solvin Memory: 6 Speech-Plan Patient/Family Goals Patient/Family Goals: The patient will most likely require retirement placement for continued services upon discharge from the ARU. Treatment Plan Speech Therapy Treatment Plan: Continue Plan of Care Patient appeared more comfortable today than the past 2 days. Treatment Duration: Jan 28, 2019 Frequency: 5 times per week Estimated Hrs Per Day: .5 hour per day Rehab Potential: Guarded Barriers to Learning: Patient has severe expressive aphasia. Pt/Family Agrees to Plan: Yes Safety Risks/Education Teaching Recipient: Patient Teaching Methods: Discussion Response to Teaching: Verbalize Understanding Education Topics Provided: Safety while in his chair. Time Speech Therapy Time In: 09:30 Speech Therapy Time Out: 10:00 Total Billed Time: 30 Billed Treatment Time 1CAROLYN BETH[address] ST Jan 20, 2019 10:06
--- NOTE | 2019-01-20 10:08 | NUR ---
This lifestyle coordinator has entered room on multiple occasions since pts admission, pt has always been asleep and have not encountered family present. Will continue to monitor.
[2019-01-20] MEDS: lisINopril 5 MG (PRINIVIL) TABLET PO SCH (11:05)
[2019-01-20] MEDS: CARVEDILOL 6.25 MG (COREG) TAB PO SCH ×2 (11:05→20:22)
[2019-01-20] MEDS ORDERED: LIDOCAINE UROJET 2% GEL 10 ML PKG ONE ×2 (11:22→13:11)
--- NOTE | 2019-01-20 12:12 | NUR ---
BEAM DYER contacted [facility] billing department to inquire about coverage for SNF past 20 days due to secondary insurance as [employer]. medical administrative specialist confirmed that the information provided to the patient's sister was inaccurate, as [employer] will not cover for a [place] facility. BEAM DYER provided patient's sister with facilities located in [place], at her request. Addendum: 01/20/19 at 1438 by RADHA CONTRERAS SS Patient's sister visited [facility], as she is familiar with the facility. She has requested BEAM DYER to send clinical information. LEON has faxed information to Maria De Jesus at . Addendum: 01/20/19 at 1635 by RADHA CONTRERAS SS BEAM DYER received denial from ERICA Martinez due to medication costs for Latuda and Trulicity. Placement will likely be challenging due to the overall cost of patient care, in addition to barriers with psych history and potential need for State screening. BEAM DYER has reached out to RN at [facility] ACT team and pharmacy for assistance with medication management with potential to transition to similar medications that are more cost efficient.
[2019-01-20] MEDS: BETHANECHOL 10 MG (URECHOLINE) TAB PO SCH ×2 (16:02→20:22)
[2019-01-20 18:06] VITALS: BP 104/74
[2019-01-20] MEDS: ROSUVASTATIN 20 MG (CRESTOR) TABLET PO SCH (20:22)
[2019-01-20] MEDS: LURASIDONE 40 MG (LATUDA) TABLET NON-FORM PO SCH (20:22)
[2019-01-20] MEDS: doxAzosin 2 MG (CARDURA) TAB PO SCH (20:22)
--- NOTE | 2019-01-21 | NUR ---
Pt has not voided yet this shift. Placed and held urinal for pt in an attempt for him to void but unsuccessful. Bladder scan shows 256cc. Will cont to monitor.
--- NOTE | 2019-01-21 03:10 | NUR ---
Pt still has not voided on this shift. Placed and held urinal for pt but unsuccessful. Pt becoming restless. Pt straight cathed at this time using sterile technique. 450 cc cloudy omari odorous urine returned. Pt marcin well.
[2019-01-21] MEDS: FERROUS SULF 325 MG (IRON) TAB PO SCH ×2 (05:06→18:08)
[2019-01-21] MEDS: BETHANECHOL 10 MG (URECHOLINE) TAB PO SCH (05:06)
[2019-01-21] MEDS: LEVOTHYROXINE 125 MCG (LEVOTHROID) TABLET PO SCH (05:06)
[2019-01-21] MEDS: CATHETER FLUSH 10 ML SYR IV SCH ×3 (05:07→21:42)
[2019-01-21] MEDS: inSUlin ASPART (NovoLOG) 1 UNIT/0.01 ML (CHARGE PER UNIT) SC SCH ×3 (05:07→18:09)
[2019-01-21 06:00] VITALS: BP 90/54
--- NOTE | 2019-01-21 08:37 | PM&R Progress Note ---
Subjective HPI/CC On Admission Date Seen by Provider: Jan 21, 2019 Time Seen by Provider: 08:15 CC: Catastrophic CVA debility HPI: This is a 53-year-old white male who has a past medical history of type II diabetes, CAD w/recent stents placed 09/28 and hypertension who was admitted to [facility] on 01/03/19 due to right sided weakness due to ischemic stroke. He was a phasic on admission and admitted to the ICU at [facility]. The stroke was located in the left MCA region. He did not qualify for TPA. Patient later converted to hemorrhagic stroke for which neurosurgery was consulted. No decompression surgery was required. Patient was on anticoagulation and antiplatelet therapy for the stroke occurred. He had had multiple stents placed in September for which he was on antiplatelet therapy. Both anticoagulation and antiplatelet agents were stopped because of the hemorrhagic progression. [facility] had spoken to neurology and cardiology and antiplatelets can be resumed 2 weeks from time of discharge from [facility] on 01/14/19. Those will be restarted on 01/28/19. Patient also had dysphagia as a result from the stroke and although NG tube was placed for feeding he's failed multiple swallow test and GI waist PEG tube. Currently patient aphasic with also expressive aphasia and requires feedings per PEG tube. Patient does have blanchable areas on his coccyx and right heel of which are being treated aggressively. No evidence of infection around the PEG tube. He did have incontinence stool this morning. His sister is involved in his care but I have not seen her arrived yet. Patient has never and has no other family members. Barriers to returning home include lack of ability to communicate may be a safety hazard if that does not resolve in addition to tube feedings and right- sided paralysis will preclude him from likely doing that himself in addition to major fall risk if he cannot walk on his own. Subjective/Events-last exam Cysto yesterday. Can't void and straight cath was required Temple catheter may be chronic and change to SP catheter Able to grunt answers and appears to be more alert today Overall does not appear to be in any pain. Reviewed meds and labs Reviewed PT/OT Uncertain of recovery potential after catastrophic CVA Needs NHP Review of Systems Neurological: Weakness, Numbness, Incoordination, Change in speech Objective Exam Vital Signs Vital Signs Date Time Temp Pulse Resp B/P (MAP) Pulse Ox O2 Delivery O2 Flow Rate FiO2 01/21/19 09:00 Room Air 01/21/19 06:00 97.4 83 18 90/54 (66) 99 Capillary Refill : General Appearance: No Apparent Distress, WD/WN, Chronically ill, Cachetic, Other (unable to communicate) HEENT: PERRL/EOMI, Pharynx Normal Neck: Non Tender, Supple, Other (leans right) Respiratory: Lungs Clear, Normal Breath Sounds, No Accessory Muscle Use, No Respiratory Distress, Decreased Breath Sounds Cardiovascular: Regular Rate, Rhythm, No Edema, No Gallop, No JVD, No Murmur, Normal Peripheral Pulses Gastrointestinal: Normal Bowel Sounds, Non Tender, Soft, Other (PEG in place) Back: Normal Inspection, No CVA Tenderness, No Vertebral Tenderness, Decreased Range of Motion, Other (leans right) Extremity: Normal Capillary Refill, Normal Inspection, Non Tender, No Calf Tenderness Neurologic/Psychiatric: Alert, Abnormal management and budget analyst II-XII, Abnormal Gait, Aphasia, Depressed Affect, Facial Droop, Motor Weakness (right) Skin: Normal Color, Warm/Dry Lymphatic: No Adenopathy Results/Procedures Lab Patient resulted labs reviewed. Assessment/Plan Assessment and Plan Assess & Plan/Chief Complaint Assessment/Plan: (1) Hemorrhagic stroke-not an antiplatelet and anticoagulation candidate until per Neurology specialty (2) Ischemic stroke- catastrophic with right sided paralysis (3) CAD (coronary artery disease)-consulting Dr Burton (4) Presence of stent in coronary artery- 09/28 must stay off Plavix until (5) Aphasia-ST consult (6) Expressive aphasia- ST consult (7) Decubitus ulcer- monitor closely may need wound care if progresses (8) Smoker-smoking cessation (9) Diabetes mellitus-insulin management (10) Temple catheter in place-consulted Dr Klein for Thursday to help with DC due to infection risk (11) PEG (percutaneous endoscopic gastrostomy) status-feeding regimen per dietary (12) Dysphagia-NPO (13) Hypothyroidism (acquired)-Home med (14) Anxiety-home med (15) Acute kidney injury- monitor closely creatinine normal today (16) Factor 5 Leiden mutation, heterozygous-no anticoagulation of Xarelto home med until 01/28/19 (17) Hx pulmonary embolism- no anticoagulation of Xarelto home med until 01/28/19 (18) Hypertension- home med (19) History of ST elevation myocardial infarction (STEMI)-Cardiology appreciated (20) Colon polyps (21) Hyponatremia- monitor closely due to brain injury (22) Depression- home med restart (23) CHF (congestive heart failure)- check ECHO 40% last EF a few years ago (24) Cardiomyopathy, ischemic- check ECHO 40% last EF a few years ago (25) COPD (chronic obstructive pulmonary disease)- may need nebs (26) LILY (obstructive sleep apnea)- monitor O2 (27) GERD (gastroesophageal reflux disease)- PPI (28) Hyperlipidemia- statin (29) Renal calculus- no active issues (30) Schizophrenia- chronic disability (31) Marijuana abuse- cessation currently (32) Acute melena with stable H/H s/p EGD and Colonoscopy per Dr Moffett NHP Needs anticoagulation with antiplatelet therapy restarted 01/28/19 (1) Hemorrhagic stroke (2) Ischemic stroke (3) Aphasia (4) Decubitus ulcer (5) COPD (chronic obstructive pulmonary disease) (6) Diabetes mellitus (7) Anxiety (8) Expressive aphasia (9) CAD (coronary artery disease) (10) Dysphagia (11) Depression (12) CHF (congestive heart failure) (13) Hyperlipidemia (14) Hyponatremia (15) Renal calculus (16) Marijuana abuse (17) Schizophrenia (18) GERD (gastroesophageal reflux disease) (19) Hypothyroidism (acquired) (20) Hypertension (21) CVA (cerebral vascular accident) (22) LILY (obstructive sleep apnea) (23) Cardiomyopathy, ischemic (24) Colon polyps (25) Temple catheter in place (26) Acute kidney injury (27) Factor 5 Leiden mutation, heterozygous (28) History of ST elevation myocardial infarction (STEMI) (29) Hx pulmonary embolism (30) Melena (31) Iron deficiency (32) Decubitus ulcer of coccyx, stage 2 Clinical Quality Measures DVT/VTE Risk/Contraindication: Risk Factor Score Per Nursin RFS Level Per Nursing on Admit: 4+=Very High Other: HEMORRHAGIC CVA; ANTIPLATELET CAN BE RESUMED IN 2 WEEKS KAILEY RENE DO Jan 21, 2019 08:36
[2019-01-21] MEDS: lisINopril 5 MG (PRINIVIL) TABLET PO SCH (09:07)
[2019-01-21] MEDS: GABAPENTIN 600 MG (NEURONTIN) TAB PO SCH ×3 (09:08→21:40)
[2019-01-21] MEDS: CARVEDILOL 6.25 MG (COREG) TAB PO SCH ×2 (09:08→21:40)
[2019-01-21] MEDS: ACETAMINOPHEN 500 MG TAB (TYLENOL) PO SCH ×2 (09:08→21:40)
[2019-01-21] MEDS: POLYETHYLENE GLYCOL 17 GM (MIRALAX) PACK PO SCH ×2 (09:08→21:41)
[2019-01-21] MEDS: PANTOPRAZOLE 40 MG (PROTONIX) TAB PO SCH (09:08)
[2019-01-21] MEDS: LEVETIRACETAM 500 MG (KEPPRA) TAB PO SCH ×2 (09:08→21:40)
--- NOTE | 2019-01-21 09:12 | Occupational Ther Daily Note ---
OT Current Status-Daily Note Subjective Pt alert, lying in bed. Pt non-verbal, difficult to assess needs, wants or pain. Mental Status/Objective Patient Orientation: Person, Non-Verbal/Aphasic Therapy Code Descriptions/Definitions Functional [place] Measure: 0=Not Assessed/NA 4=Minimal Assistance 1=Total Assistance 5=Supervision or Setup 2=Maximal Assistance 6=Modified [place] 3=Moderate Assistance 7=Complete [place] Attachments: IV, PEG Tube ADL-Treatment PT/OT co-treat for skilled intervention, knowledge and judgment of both disciplines for optimal benefit of the pt. PT worked on positioning pt correctly to facilitate standing, transfers, bed mobility and LE strengthening. OT worked on utilizing L UE to hike pants in supine, wt bearing through B UE' s and multistep fine motor tasks in standing for cognition and dexterity. Pt assisted with donning pants by bridging in bed and pulling up L side of pants. See PT note for transfers. Pt able to bear wt through R elbow in standing frame and manipulate objects to place in designated areas. Problem solving with tic tac toe activity, good. After therapy, pt lying in bed with call light /phone in reach. All needs met in room. Therapy Code Descriptions/Definitions Functional [place] Measure: 0=Not Assessed/NA 4=Minimal Assistance 1=Total Assistance 5=Supervision or Setup 2=Maximal Assistance 6=Modified [place] 3=Moderate Assistance 7=Complete [place] Therapy Quality Codes: 6 Independent with activity with or without an assistive device 5 Patient requires set up or clean up by helper. Patient completes activity by themselves 4 Supervision or touching assist (CGA). [place] provide cues , steadying assist 3 The helper provides less than half the effort to complete the activity 2 The helper provides more than half the effort to complete the activity 1 Dependent. The helper does all the effort to complete an activity 7 Patient refused to complete or attempt activity 9 The patient did not perform the activity before the current illness or injury 88 Not attempted due to Medical conditions or safety concerns OT Short Term Goals Short Term Goals Time Frame: Jan 21, 2019 Grooming(FIM): 3 Upper Body Dressing(FIM): 3 Lower Body Dressing(FIM): 2 Toilet/Commode Transfer(FIM): 3 Additional Short Term Goals: 1-Demonstrate ADL Tasks, 2-Verbalize Understanding , 3-ImproveStrength/Merlin 1=Demonstrate adherence to instructed precautions during ADL tasks. 2=Patient will verbalize/demonstrate understanding of assistive devices/ modifications for ADL. 3=Patient will improve strength/tolerance for activity to enable patient to perform ADL's. OT Softball Umpire Goals Softball Umpire Goals Time Frame: Feb 04, 2019 Eating (FIM): 6 Eating (QC): 5 Groomin Oral Hygiene (QC): 4 Bathing(FIM): 6 Shower/Bathe Self (QC): 3 Upper Body Dressing(FIM): 6 Upper Body Dressing (QC): 3 Lower Body Dressing(FIM): 6 On/Off Footwear (QC): 3 Toileting(FIM): 6 Toileting Hygiene (QC): 3 Toilet/Commode Transfer(FIM): 4 Toilet/Commode Transfer (QC): 3 Shower Transfer(FIM): 3 Comprehension(FIM): 6 Expression (FIM): 6 Social Interaction(FIM): 6 Problem Solving(FIM): 6 Memory(FIM): 6 Additional Goals: 1-Demonstrate ADL Tasks, 2-Verbalize Understanding, 3- ImproveStrength/Merlin 1=Demonstrate adherence to instructed precautions during ADL tasks. 2=Patient will verbalize/demonstrate understanding of assistive devices/ modifications for ADL. 3=Patient will improve strength/tolerance for activity to enable patient to perform ADL's. OT Education/Plan Problem List/Assessment Assessment: Decreased Activ Tolerance, Decreased Safety Aware, Decreased UE Strength, Impaired Bed Mobility, Impaired Coordination, Impaired Funct Balance, Impaired I ADL's, Impaired Self-Care Skills, Restricted Funct UE ROM Pt admitted to ARU following acute hospitalization for CVA. Pt does not demonstrate any active movement of right UE. Pt is nonverbal and has difficulty following commands. Pt to benefit from skilled OT intervention for ADL training , transfers, ROM/strengthening, and safety education to increase level of independence and allow safe discharge plan. Discharge Recommendations Plan/Recommendations: Continue POC Treatment Plan/Plan of Care Patient would benefit from OT for education, treatment and training to promote independence in ADL's, mobility, safety and/or upper extremity function for ADL' s. Plan of Care: ADL Retraining, Functional Mobility, Group Exercise/Act as Ind, UE Funct Exercise/Act, UE Neuromus Re-Ed/Coord, Visual/Perceptual Retrain Treatment Duration: Feb 04, 2019 Frequency: At least 5 of 7 days/Wk (IRF) Estimated Hrs Per Day: 1.5 hours per day Rehab Potential: Guarded Time/GCodes Start Time: 08:00 Stop Time: 09:15 Total Time Billed (hr/min): 75 Billed Treatment Time 1 visit-ADL 2 (30 min) NM 3 (45 min) MARIEL EMMANUEL Jan 21, 2019 09:12
--- NOTE | 2019-01-21 10:01 | Progress Note-Urology ---
Progress Note-Urology Progress Notes/Assess & Plan Progress/Assessment & Plan STILL PROBLEM VOIDING. TOLERATES URECHOLINE WELL. INCREASE TO 25 Final Diagnosis URINE RETENTION RAMBO CAMILO MD Jan 21, 2019 10:01
--- NOTE | 2019-01-21 10:18 | NUR ---
DUAL RATE DEALER spoke with RN of patient's psychiatrist in regards to alternative psych medication, due to cost barrier for placement. Psychiatrist states Latbeth can transition to Vraylar; however, per Junior Savage, this medication is similar in [place]. Addendum: 01/21/19 at 1121 by RADHA CONTRERAS SS LEON reached out to [facility] to request Dr. Marcelino to consult on Thursday. LEON is hopeful that Dr. Marcelino can provide direction on how to proceed regarding the need for psych medication, as addressing psych needs may not be relevant at this time due to cognitive deficits from stroke; however, this is challenging to assess as patient is non verbal and aphasic and has difficulties responding appropriately.
--- NOTE | 2019-01-21 11:05 | NUR ---
John is a 53 yo of male currently present on the ARU floor d/t a CVA right latoya. John has severe expressive aphasia and unable to verbally report needs at this time but does answer "yes" or "no" questions appropriately. Currently patient is receiving continuos tube feedings through PEG tube with water flushes q4 hour, patient is currently tolerating this appropriately. Pt continues to have an issue with urinary retention and is having to be intermittently straight cathed. Dr. Preston was in and saw patient today and increased Urecholine to 25mg ACHS. We will continue with bladder scans and SC'ing as needed. Wound care was in an assessed coccyx pressure ulcer, no changes ordered. This nurse will continue to monitor patient throughout shift.
--- NOTE | 2019-01-21 11:31 | Speech Therapy Daily Note ---
Speech Daily Progress Note Subjective Date Seen by Provider: Jan 21, 2019 Time Seen by Provider: 00:30 The patient was resting in his bed when I entered his room. Objective The patient answered simple y/n questions related to his needs with gross approximations of articulated answers at 75%. Assessment Assessment Current Status: Fair Progress Treatment Plan Continue Plan of Care Communication Comprehension: 5 Expression: 1 Social Cognition Social Interaction: 3 Problem Solvin Memory: 4 Speech Short Term Goals Short Term Goals Short Term Goals 1) The patient will answer simple y/n questions presented by staff with 80% accuracy given minimal repetitions. 2) The patient will communicate his wants/needs with verbal, gestures or communication board with 80% accuracy given minimal cues. 3) The patient will follow simple 1 step directions at 80% with minimal repetitions. Speech Client Success Specialist Goals Client Success Specialist Goals The patient will be able to effectively communicate his wants/needs with a variety of communication means. Comprehension: 6 Expression: 6 Social Interaction: 6 Problem Solvin Memory: 6 Speech-Plan Patient/Family Goals Patient/Family Goals: The patient's plans are unknown at this time. Treatment Plan Speech Therapy Treatment Plan: Continue Plan of Care The patient was provided a yes/no communication board today. Treatment Duration: Jan 28, 2019 Frequency: 5 times per week Estimated Hrs Per Day: .5 hour per day Rehab Potential: Guarded Barriers to Learning: Severe expresssive aphasia. Pt/Family Agrees to Plan: Yes Safety Risks/Education Teaching Recipient: Patient Teaching Methods: Discussion Response to Teaching: Verbalize Understanding Education Topics Provided: Utilization of communication aids to communicate his wants/needs Time Speech Therapy Time In: 09:30 Speech Therapy Time Out: 10:00 Total Billed Time: 30 Billed Treatment Time 1[address] Jan 21, 2019 11:31
--- NOTE | 2019-01-21 11:42 | Physical Therapy Daily Note ---
PT Daily Note-Current Subjective Patient in bed pre tx, needs dressed but has not had a BM and is not wet. Will be co-treating with OT due to poor patient sitting and standing balance, poor mobility and strength, right hemiparesis. Appearance Patient in bed post tx with nurse call, phone, tray, all needs met. Bed alarm on. Mental Status Patient Orientation: Unable to Assess, Non-Verbal/Aphasic Attachments: PEG Tube Transfers Therapy Code Descriptions/Definitions Functional [place] Measure: 0=Not Assessed/NA 4=Minimal Assistance 1=Total Assistance 5=Supervision or Setup 2=Maximal Assistance 6=Modified [place] 3=Moderate Assistance 7=Complete [place] Therapy Quality Codes: 6 Independent with activity with or without an assistive device 5 Patient requires set up or clean up by helper. Patient completes activity by themselves 4 Supervision or touching assist (CGA). [place] provide cues , steadying assist 3 The helper provides less than half the effort to complete the activity 2 The helper provides more than half the effort to complete the activity 1 Dependent. The helper does all the effort to complete an activity 7 Patient refused to complete or attempt activity 9 The patient did not perform the activity before the current illness or injury 88 Not attempted due to Medical conditions or safety concerns Transfers (B, C, W/C) (FIM): 2 Scootin Rollin Supine to/from Sit: 2 Sit to/from Stand: 2 Bed to/from Chair: 2 Weight Bearing Weight Bearing/Tolerated Weight Bearing/Tolerated Exercises Patient put in standing frame for 30 min. Needs assist with weight shifting in the frame and general balance and positioning while OT works on upper extremity activities. Treatments Bed mobility and transfers, dressing, sitting balance, standing frame. Assessment Current Status: Poor Progress Little improvement in mobility. PT Short Term Goals Short Term Goals Time Frame: Jan 21, 2019 Gait (FIM): 1 Gait Distance Comment: 8' Gait Level of Assist: 2 Gait Assistive Device: Parallel Bars Wheelchair Distance: 125' PT Trestle Mechanic Goals Senior Care Goals PT Trestle Mechanic Goals Time Frame: Feb 04, 2019 Transfers (B,C,W/C) (FIM): 4 Sit to Lying (QC): 3 Lying-Sitting on Side/Bed(QC): 3 Sit to Stand (QC): 3 Rollin Roll Left to Right (QC): 3 Chair/Fgl-xe-Otrto Xfer(QC): 3 Car Transfer (QC): 3 Gait (FIM): 6 Distance: 20' Walk 10 feet (QC): 3 Gait Level of Assist: 4 Gait Assistive Device: Walker Dmitry Wheelchair (FIM): 6 Distance: 50' Wheelchair Level of Assist: 3 Wheel 50 feet with 2 turns (QC: 2 PT Plan Problem List Problem List: Activity Tolerance, Functional Strength, Safety, Balance, Gait, Transfer, Bed Mobility, ROM Treatment/Plan Treatment Plan: Continue Plan of Care Treatment Plan: Bed Mobility, Concurrent Therapy, Education, Functional Activity Merlin, Functional Strength, Group Therapy, Gait, Safety, Therapeutic Exercise, Transfers Treatment Duration: Feb 04, 2019 Frequency: At least 5 of 7 days/Wk (IRF) Estimated Hrs Per Day: 1.5 hours per day Patient and/or Family Agrees t: Yes Safety Risks/Education Patient Education: Transfer Techniques, Correct Positioning, Safety Issues Teaching Recipient: Patient Teaching Methods: Demonstration, Discussion Response to Teaching: Reinforcement Needed Time/GCodes Time In: 0800 Time Out: 0915 Total Billed Treatment Time: 75 Total Billed Treatment 1 visit EX 30' FA 45' Co-treated for the whole 75'. PT worked on bed mobility, transfers, balance and positioning sitting on bed and in standing frame. OT worked on dressing, assisted with transfers and positioning and worked on UE activities. CARLOS MCKEON PT Jan 21, 2019 11:42
[2019-01-21] MEDS: BETHANECHOL 25 MG (URECHOLINE) TAB PO SCH ×3 (12:29→21:40)
[2019-01-21 18:38] VITALS: BP 97/67
[2019-01-21] MEDS: doxAzosin 2 MG (CARDURA) TAB PO SCH (21:40)
[2019-01-21] MEDS: ROSUVASTATIN 20 MG (CRESTOR) TABLET PO SCH (21:40)
[2019-01-21] MEDS: LURASIDONE 40 MG (LATUDA) TABLET NON-FORM PO SCH (21:42)
[2019-01-21 21:46] VITALS: BP 122/68
[2019-01-22] MEDS: inSUlin ASPART (NovoLOG) 1 UNIT/0.01 ML (CHARGE PER UNIT) SC SCH ×5 (00:51→23:17)
[2019-01-22 06:20] VITALS: BP 106/66
[2019-01-22] MEDS: LEVOTHYROXINE 125 MCG (LEVOTHROID) TABLET PO SCH (06:32)
[2019-01-22] MEDS: FERROUS SULF 325 MG (IRON) TAB PO SCH ×2 (06:32→17:50)
[2019-01-22] MEDS: BETHANECHOL 25 MG (URECHOLINE) TAB PO SCH ×4 (06:32→21:02)
[2019-01-22] MEDS: CATHETER FLUSH 10 ML SYR IV SCH ×3 (06:32→21:03)
--- NOTE | 2019-01-22 08:50 | Physical Therapy Daily Note ---
PT Daily Note-Current Subjective Pt laying Supine in bed upon arrival. Pt is alert, grunts to communicate. Pt agrees to PT for Ex. Mental Status Patient Orientation: Person, Non-Verbal/Aphasic Transfers Therapy Code Descriptions/Definitions Functional [place] Measure: 0=Not Assessed/NA 4=Minimal Assistance 1=Total Assistance 5=Supervision or Setup 2=Maximal Assistance 6=Modified [place] 3=Moderate Assistance 7=Complete [place] Therapy Quality Codes: 6 Independent with activity with or without an assistive device 5 Patient requires set up or clean up by helper. Patient completes activity by themselves 4 Supervision or touching assist (CGA). [place] provide cues , steadying assist 3 The helper provides less than half the effort to complete the activity 2 The helper provides more than half the effort to complete the activity 1 Dependent. The helper does all the effort to complete an activity 7 Patient refused to complete or attempt activity 9 The patient did not perform the activity before the current illness or injury 88 Not attempted due to Medical conditions or safety concerns Weight Bearing Weight Bearing/Tolerated Weight Bearing/Tolerated Exercises Supine Ex: Ankle pumps, Quad Set, Straight leg raise, Hip abd/add Supine Reps: 15 Treatments Pt cannot follow directions so TENTERING MACHINE FEEDER assists pt through PROM Supine Ex. Assessment Current Status: Poor Progress Pt only communicate through grunts and cannot follow directions. PT Short Term Goals Short Term Goals Time Frame: Jan 21, 2019 Gait (FIM): 1 Gait Distance Comment: 8' Gait Level of Assist: 2 Gait Assistive Device: Parallel Bars Wheelchair Distance: 125' PT Traveling Secretary Goals Traveling Secretary Goals PT Traveling Secretary Goals Time Frame: Feb 04, 2019 Transfers (B,C,W/C) (FIM): 4 Sit to Lying (QC): 3 Lying-Sitting on Side/Bed(QC): 3 Sit to Stand (QC): 3 Rollin Roll Left to Right (QC): 3 Chair/Mkd-ne-Mmmqw Xfer(QC): 3 Car Transfer (QC): 3 Gait (FIM): 6 Distance: 20' Walk 10 feet (QC): 3 Gait Level of Assist: 4 Gait Assistive Device: Walker Dmitry Wheelchair (FIM): 6 Distance: 50' Wheelchair Level of Assist: 3 Wheel 50 feet with 2 turns (QC: 2 PT Plan Problem List Problem List: Activity Tolerance, Functional Strength, Safety, Balance, Gait, Transfer, Bed Mobility, ROM Treatment/Plan Treatment Plan: Continue Plan of Care Treatment Plan: Bed Mobility, Concurrent Therapy, Education, Functional Activity Merlin, Functional Strength, Group Therapy, Gait, Safety, Therapeutic Exercise, Transfers Treatment Duration: Feb 04, 2019 Frequency: At least 5 of 7 days/Wk (IRF) Estimated Hrs Per Day: 1.5 hours per day Patient and/or Family Agrees t: Yes Time/GCodes Time In: 810 Time Out: 825 Total Billed Treatment Time: 15 Total Billed Treatment 1, EX (15m) G Codes Necessary: ROSSANA Kay TENTERING MACHINE FEEDER Jan 22, 2019 08:50
[2019-01-22] MEDS: ACETAMINOPHEN 500 MG TAB (TYLENOL) PO SCH ×2 (09:06→21:02)
[2019-01-22] MEDS: LEVETIRACETAM 500 MG (KEPPRA) TAB PO SCH ×2 (09:07→21:01)
[2019-01-22] MEDS: GABAPENTIN 600 MG (NEURONTIN) TAB PO SCH ×3 (09:07→21:01)
[2019-01-22] MEDS: PANTOPRAZOLE 40 MG (PROTONIX) TAB PO SCH (09:07)
[2019-01-22] MEDS: lisINopril 5 MG (PRINIVIL) TABLET PO SCH (09:07)
[2019-01-22] MEDS: POLYETHYLENE GLYCOL 17 GM (MIRALAX) PACK PO SCH ×2 (09:07→21:03)
[2019-01-22] MEDS: CARVEDILOL 6.25 MG (COREG) TAB PO SCH ×2 (09:07→21:02)
--- NOTE | 2019-01-22 11:43 | NUR ---
PATIENT UP TO CHAIR MAX ASSIST, GAIT BELT FOR SAFETY . PATIENT TOLERATED WELL. RESPONDS APPROPRIATELY AND FOLLOWS COMMANDS. EXPRESSIVE APHASIA. DENIES NEED WITH HEAD SHAKE "NO" AT THIS TIME. WATCHING TV. CONT TO MONITOR.
--- NOTE | 2019-01-22 11:55 | Progress Note ---
Subjective Time Seen by a Provider: 11:45 Subjective/Events-last exam Pt seen and examined, according to nurse no changes, complaints or problems. He had BM while I was there, appeared normal - no melena. Review of Systems General: No Chills, No Night Sweats Pulmonary: No Dyspnea, No Cough Gastrointestinal: No: Nausea, Vomiting Objective Exam Vital Signs Date Time Temp Pulse Resp B/P (MAP) Pulse Ox O2 Delivery O2 Flow Rate FiO2 01/22/19 09:51 Room Air 01/22/19 06:20 97.6 78 20 106/66 (79) 98 Room Air 01/21/19 21:46 88 122/68 (86) 01/21/19 21:00 Room Air 01/21/19 18:38 98.0 83 20 97/67 (77) 98 Room Air I & O 01/22/19 07:00 Intake Total 2410 ml Balance 2410 ml Capillary Refill : General Appearance: No Apparent Distress, Chronically ill, Cachetic, Other ( unable to communicate) HEENT: PERRL/EOMI, Moist Mucous Membranes Neck: Other (leans right) Respiratory: Lungs Clear, Normal Breath Sounds, No Accessory Muscle Use, No Respiratory Distress Cardiovascular: Regular Rate, Rhythm, No Edema, No Murmur Gastrointestinal: normal bowel sounds, non tender, soft, no organomegaly, no pulsatile mass, other (PEG tube in place) Extremity: No Calf Tenderness Neurologic/Psychiatric: Alert, 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, Abnormal Gait, Aphasia, Depressed Affect, Facial Droop, Motor Weakness (right) Skin: Normal Color, Warm/Dry Results Lab Laboratory Tests 01/21/19 15:38: Glucometer 125H 01/21/19 17:43: Glucometer 172H 01/22/19 00:44: Glucometer 206H 01/22/19 06:30: Glucometer 225H 01/22/19 11:16: Glucometer 192H Microbiology 01/18/19 MRSA Screen - Final, Complete MRSA not isolated Assessment/Plan Assessment/Plan Assessment/Plan Hemoccult + Anemia CVA, Factor V leiden, CAD and Multiple others please see PM&R note EGD appeared to show mild inflammation; but pathology was read as unremarkable duodenum and antrum. Colonoscopy biopsy from rectal area just showed mild erosions; this was most likely caused by impacted stool. Nothing else seen. Pt now appearing to have normal BM's, would continue Protonix and PEG feedings should help with stool softeners. I will sign off, thanks for this consult. Clinical Quality Measures DVT/VTE Risk/Contraindication: Risk Factor Score Per Nursin RFS Level Per Nursing on Admit: 4+=Very High Other: HEMORRHAGIC CVA; ANTIPLATELET CAN BE RESUMED IN 2 WEEKS FRANKIE DE SOUZA DO Jan 22, 2019 11:55
--- NOTE | 2019-01-22 12:45 | PM&R Progress Note ---
Subjective HPI/CC On Admission Date Seen by Provider: Jan 22, 2019 Time Seen by Provider: 12:15 CC: Catastrophic CVA debility HPI: This is a 53-year-old white male who has a past medical history of type II diabetes, CAD w/recent stents placed 09/28 and hypertension who was admitted to [facility] on 01/03/19 due to right sided weakness due to ischemic stroke. He was a phasic on admission and admitted to the ICU at [facility]. The stroke was located in the left MCA region. He did not qualify for TPA. Patient later converted to hemorrhagic stroke for which neurosurgery was consulted. No decompression surgery was required. Patient was on anticoagulation and antiplatelet therapy for the stroke occurred. He had had multiple stents placed in September for which he was on antiplatelet therapy. Both anticoagulation and antiplatelet agents were stopped because of the hemorrhagic progression. [facility] had spoken to neurology and cardiology and antiplatelets can be resumed 2 weeks from time of discharge from [facility] on 01/14/19. Those will be restarted on 01/28/19. Patient also had dysphagia as a result from the stroke and although NG tube was placed for feeding he's failed multiple swallow test and GI waist PEG tube. Currently patient aphasic with also expressive aphasia and requires feedings per PEG tube. Patient does have blanchable areas on his coccyx and right heel of which are being treated aggressively. No evidence of infection around the PEG tube. He did have incontinence stool this morning. His sister is involved in his care but I have not seen her arrived yet. Patient has never and has no other family members. Barriers to returning home include lack of ability to communicate may be a safety hazard if that does not resolve in addition to tube feedings and right- sided paralysis will preclude him from likely doing that himself in addition to major fall risk if he cannot walk on his own. Subjective/Events-last exam Voiding well to the point of incontinence likely due to Urecholine Will update Dr Klein regarding this status Able to grunt answers and appears to be more alert today Overall does not appear to be in any pain. Reviewed meds and labs Reviewed PT/OT Uncertain of recovery potential after catastrophic CVA Needs NHP Review of Systems General: Fatigue Genitourinary: Incontinence Neurological: Weakness, Numbness, Incoordination, Change in speech Objective Exam Vital Signs Vital Signs Date Time Temp Pulse Resp B/P (MAP) Pulse Ox O2 Delivery O2 Flow Rate FiO2 01/23/19 08:50 78 99/66 (77) 01/23/19 05:11 97.7 16 95 Room Air Capillary Refill : General Appearance: No Apparent Distress, Chronically ill, Cachetic, Other ( unable to communicate) HEENT: PERRL/EOMI, Moist Mucous Membranes Neck: Other (leans right) Respiratory: Lungs Clear, Normal Breath Sounds, No Accessory Muscle Use, No Respiratory Distress Cardiovascular: Regular Rate, Rhythm, No Edema, No Murmur Gastrointestinal: Normal Bowel Sounds, Non Tender, Soft, Other (PEG in place) Back: Normal Inspection, No CVA Tenderness, No Vertebral Tenderness, Decreased Range of Motion, Other (leans right) Extremity: No Calf Tenderness Neurologic/Psychiatric: Alert, 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 Assessment/Plan Assessment and Plan Assess & Plan/Chief Complaint Assessment/Plan: (1) Hemorrhagic stroke-not an antiplatelet and anticoagulation candidate until per Neurology specialty (2) Ischemic stroke- catastrophic with right sided paralysis (3) CAD (coronary artery disease)-consulting Dr Burton (4) Presence of stent in coronary artery- 09/28 must stay off Plavix until (5) Aphasia-ST consult (6) Expressive aphasia- ST consult (7) Decubitus ulcer- monitor closely may need wound care if progresses (8) Smoker-smoking cessation (9) Diabetes mellitus-insulin management (10) Temple catheter in place-consulted Dr Klein to help with DC due to infection risk now with incontinence and minimal PVR maintained on Urecholine (11) PEG (percutaneous endoscopic gastrostomy) status-feeding regimen per dietary (12) Dysphagia-NPO (13) Hypothyroidism (acquired)-Home med (14) Anxiety-home med (15) Acute kidney injury- monitor closely creatinine normal today (16) Factor 5 Leiden mutation, heterozygous-no anticoagulation of Xarelto home med until 01/28/19 (17) Hx pulmonary embolism- no anticoagulation of Xarelto home med until 01/28/19 (18) Hypertension- home med (19) History of ST elevation myocardial infarction (STEMI)-Cardiology appreciated (20) Colon polyps (21) Hyponatremia- monitor closely due to brain injury (22) Depression- home med restart (23) CHF (congestive heart failure)- check ECHO 40% last EF a few years ago (24) Cardiomyopathy, ischemic- check ECHO 40% last EF a few years ago (25) COPD (chronic obstructive pulmonary disease)- may need nebs (26) LILY (obstructive sleep apnea)- monitor O2 (27) GERD (gastroesophageal reflux disease)- PPI (28) Hyperlipidemia- statin (29) Renal calculus- no active issues (30) Schizophrenia- chronic disability (31) Marijuana abuse- cessation currently (32) Acute melena with stable H/H s/p EGD and Colonoscopy per Dr Moffett NHP Needs anticoagulation with antiplatelet therapy restarted 01/28/19 (1) Hemorrhagic stroke (2) Ischemic stroke (3) Aphasia (4) Decubitus ulcer (5) COPD (chronic obstructive pulmonary disease) (6) Diabetes mellitus (7) Anxiety (8) Expressive aphasia (9) CAD (coronary artery disease) (10) Dysphagia (11) Depression (12) CHF (congestive heart failure) (13) Hyperlipidemia (14) Hyponatremia (15) Renal calculus (16) Marijuana abuse (17) Schizophrenia (18) GERD (gastroesophageal reflux disease) (19) Hypothyroidism (acquired) (20) Hypertension (21) CVA (cerebral vascular accident) (22) LILY (obstructive sleep apnea) (23) Cardiomyopathy, ischemic (24) Colon polyps (25) Temple catheter in place (26) Acute kidney injury (27) Factor 5 Leiden mutation, heterozygous (28) History of ST elevation myocardial infarction (STEMI) (29) Hx pulmonary embolism (30) Melena (31) Iron deficiency (32) Decubitus ulcer of coccyx, stage 2 Clinical Quality Measures DVT/VTE Risk/Contraindication: Risk Factor Score Per Nursin RFS Level Per Nursing on Admit: 4+=Very High Other: HEMORRHAGIC CVA; ANTIPLATELET CAN BE RESUMED IN 2 WEEKS KAILEY RENE DO Jan 22, 2019 12:45
--- NOTE | 2019-01-22 13:20 | NUR ---
DR RENE HERE TO SEE PATIENT. NO NEW ORDERS RECEIVED.
--- NOTE | 2019-01-22 15:15 | Wound Care Assessment ---
Wound Care Assessment Date Seen by Provider: Jan 22, 2019 Time Seen by Provider: 14:45 Chief Complaint Sacral ulcer. HPI 53 year old male with Stage 2 sacral pressure ulcer after devastating stroke. The wound is a little more damp today. When seen, he is lying on the back, with no pillow behind back. Proper off-loading discussed with the patient and staff. Continue Allevyn dressing for now. Past Medical History: Admits Diabetes Type II, Admits Heart Disease, Admits Peripheral Artery Disease COPD, CAD, PVD. Schizophrenia. Smoking Status: Current Everyday Smoker Recreational Drug Use: No (Hx of cannabis use) Alcohol Use: Denies Use Review of Systems General: Other (Unable to obtain due to aphasia.) Exam Vital Signs Date Time Temp Pulse Resp B/P (MAP) Pulse Ox O2 Delivery O2 Flow Rate FiO2 01/22/19 09:51 Room Air 01/22/19 06:20 97.6 78 20 106/66 (79) 98 Capillary Refill : General Appearance: no apparent distress Neck: normal inspection Respiratory: no respiratory distress Skin: other (Sacral ulcer -- 1.5 x 1.8 x 0.2 cm, base 75% slough.) Results Laboratory Tests 01/21/19 15:38: Glucometer 125H 01/21/19 17:43: Glucometer 172H 01/22/19 00:44: Glucometer 206H 01/22/19 06:30: Glucometer 225H 01/22/19 11:16: Glucometer 192H Microbiology 01/18/19 MRSA Screen - Final, Complete MRSA not isolated Assessment/Plan/Dx 1. Pressure ulcer, sacrum, Stage 2. 2. Recent stroke with hemiplegia. 3. COPD, CAD, PVD, tobacco abuse. 4. Diabetes mellitus. 5. Schizophrenia. Plan: Dress with Allevyn, off-load with positioning. GERTRUDE WEBER MD Jan 22, 2019 15:15
[2019-01-22 16:17] VITALS: BP 108/73
[2019-01-22] MEDS: doxAzosin 2 MG (CARDURA) TAB PO SCH (21:02)
[2019-01-22] MEDS: ROSUVASTATIN 20 MG (CRESTOR) TABLET PO SCH (21:02)
[2019-01-22] MEDS: LURASIDONE 40 MG (LATUDA) TABLET NON-FORM PO SCH (21:04)
[2019-01-22 21:06] VITALS: BP 100/63
[2019-01-23 05:11] VITALS: BP 94/65
[2019-01-23] MEDS: BETHANECHOL 25 MG (URECHOLINE) TAB PO SCH ×4 (05:33→21:12)
[2019-01-23] MEDS: inSUlin ASPART (NovoLOG) 1 UNIT/0.01 ML (CHARGE PER UNIT) SC SCH ×4 (05:33→23:10)
[2019-01-23] MEDS: LEVOTHYROXINE 125 MCG (LEVOTHROID) TABLET PO SCH (05:33)
[2019-01-23] MEDS: FERROUS SULF 325 MG (IRON) TAB PO SCH ×2 (05:33→17:50)
[2019-01-23] MEDS: CATHETER FLUSH 10 ML SYR IV SCH ×3 (05:34→21:13)
[2019-01-23 08:50] VITALS: BP 99/66
[2019-01-23] MEDS: GABAPENTIN 600 MG (NEURONTIN) TAB PO SCH ×3 (08:52→21:12)
[2019-01-23] MEDS: LEVETIRACETAM 500 MG (KEPPRA) TAB PO SCH ×2 (08:52→21:12)
[2019-01-23] MEDS: PANTOPRAZOLE 40 MG (PROTONIX) TAB PO SCH (08:52)
[2019-01-23] MEDS: ACETAMINOPHEN 500 MG TAB (TYLENOL) PO SCH ×2 (08:52→21:12)
[2019-01-23] MEDS: POLYETHYLENE GLYCOL 17 GM (MIRALAX) PACK PO SCH ×2 (09:00→21:16)
[2019-01-23] MEDS: CARVEDILOL 6.25 MG (COREG) TAB PO SCH ×2 (09:00→21:12)
[2019-01-23] MEDS: lisINopril 5 MG (PRINIVIL) TABLET PO SCH (09:00)
--- NOTE | 2019-01-23 11:43 | PM&R Progress Note ---
Subjective HPI/CC On Admission Date Seen by Provider: Jan 23, 2019 Time Seen by Provider: 12:15 CC: Catastrophic CVA debility HPI: This is a 53-year-old white male who has a past medical history of type II diabetes, CAD w/recent stents placed 09/28 and hypertension who was admitted to [facility] on 01/03/19 due to right sided weakness due to ischemic stroke. He was a phasic on admission and admitted to the ICU at [facility]. The stroke was located in the left MCA region. He did not qualify for TPA. Patient later converted to hemorrhagic stroke for which neurosurgery was consulted. No decompression surgery was required. Patient was on anticoagulation and antiplatelet therapy for the stroke occurred. He had had multiple stents placed in September for which he was on antiplatelet therapy. Both anticoagulation and antiplatelet agents were stopped because of the hemorrhagic progression. [facility] had spoken to neurology and cardiology and antiplatelets can be resumed 2 weeks from time of discharge from [facility] on 01/14/19. Those will be restarted on 01/28/19. Patient also had dysphagia as a result from the stroke and although NG tube was placed for feeding he's failed multiple swallow test and GI waist PEG tube. Currently patient aphasic with also expressive aphasia and requires feedings per PEG tube. Patient does have blanchable areas on his coccyx and right heel of which are being treated aggressively. No evidence of infection around the PEG tube. He did have incontinence stool this morning. His sister is involved in his care but I have not seen her arrived yet. Patient has never and has no other family members. Barriers to returning home include lack of ability to communicate may be a safety hazard if that does not resolve in addition to tube feedings and right- sided paralysis will preclude him from likely doing that himself in addition to major fall risk if he cannot walk on his own. Subjective/Events-last exam Voiding well to the point of incontinence likely due to Urecholine so Dr Klein will assess tomorrow Sleeping well Able to grunt answers but communication is difficult Overall does not appear to be in any pain. Reviewed meds and labs Reviewed PT/OT Uncertain of recovery potential after catastrophic CVA Needs NHP Review of Systems Neurological: Weakness, Numbness, Incoordination Objective Exam Vital Signs Vital Signs Date Time Temp Pulse Resp B/P (MAP) Pulse Ox O2 Delivery O2 Flow Rate FiO2 01/23/19 15:49 98.7 75 14 92/61 (71) 99 Room Air Capillary Refill : General Appearance: No Apparent Distress, Chronically ill, Cachetic, Other ( unable to communicate) HEENT: PERRL/EOMI, Moist Mucous Membranes Neck: Other (leans right) Respiratory: Lungs Clear, Normal Breath Sounds, No Accessory Muscle Use, No Respiratory Distress Cardiovascular: Regular Rate, Rhythm, No Edema, No Murmur Gastrointestinal: Normal Bowel Sounds, Non Tender, Soft, Other (PEG in place) Back: Normal Inspection, No CVA Tenderness, No Vertebral Tenderness, Decreased Range of Motion, Other (leans right) Extremity: No Calf Tenderness Neurologic/Psychiatric: Alert, 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 Assessment/Plan Assessment and Plan Assess & Plan/Chief Complaint Assessment/Plan: (1) Hemorrhagic stroke-not an antiplatelet and anticoagulation candidate until per Neurology specialty (2) Ischemic stroke- catastrophic with right sided paralysis (3) CAD (coronary artery disease)-consulting Dr Burton (4) Presence of stent in coronary artery- 09/28 must stay off Plavix until (5) Aphasia-ST consult (6) Expressive aphasia- ST consult (7) Decubitus ulcer- monitor closely may need wound care if progresses (8) Smoker-smoking cessation (9) Diabetes mellitus-insulin management (10) Temple catheter in place-consulted Dr Klein to help with DC due to infection risk now with incontinence and minimal PVR maintained on Urecholine (11) PEG (percutaneous endoscopic gastrostomy) status-feeding regimen per dietary (12) Dysphagia-NPO (13) Hypothyroidism (acquired)-Home med (14) Anxiety-home med (15) Acute kidney injury- monitor closely creatinine normal today (16) Factor 5 Leiden mutation, heterozygous-no anticoagulation of Xarelto home med until 01/28/19 (17) Hx pulmonary embolism- no anticoagulation of Xarelto home med until 01/28/19 (18) Hypertension- home med (19) History of ST elevation myocardial infarction (STEMI)-Cardiology appreciated (20) Colon polyps (21) Hyponatremia- monitor closely due to brain injury (22) Depression- home med restart (23) CHF (congestive heart failure)- check ECHO 40% last EF a few years ago (24) Cardiomyopathy, ischemic- check ECHO 40% last EF a few years ago (25) COPD (chronic obstructive pulmonary disease)- may need nebs (26) LILY (obstructive sleep apnea)- monitor O2 (27) GERD (gastroesophageal reflux disease)- PPI (28) Hyperlipidemia- statin (29) Renal calculus- no active issues (30) Schizophrenia- chronic disability (31) Marijuana abuse- cessation currently (32) Acute melena with stable H/H s/p EGD and Colonoscopy per Dr Moffett MAP Needs anticoagulation with antiplatelet therapy restarted 01/28/19 (1) Hemorrhagic stroke (2) Ischemic stroke (3) Aphasia (4) Decubitus ulcer (5) COPD (chronic obstructive pulmonary disease) (6) Diabetes mellitus (7) Anxiety (8) Expressive aphasia (9) CAD (coronary artery disease) (10) Dysphagia (11) Depression (12) CHF (congestive heart failure) (13) Hyperlipidemia (14) Hyponatremia (15) Renal calculus (16) Marijuana abuse (17) Schizophrenia (18) GERD (gastroesophageal reflux disease) (19) Hypothyroidism (acquired) (20) Hypertension (21) CVA (cerebral vascular accident) (22) LILY (obstructive sleep apnea) (23) Cardiomyopathy, ischemic (24) Colon polyps (25) Temple catheter in place (26) Acute kidney injury (27) Factor 5 Leiden mutation, heterozygous (28) History of ST elevation myocardial infarction (STEMI) (29) Hx pulmonary embolism (30) Melena (31) Iron deficiency (32) Decubitus ulcer of coccyx, stage 2 Clinical Quality Measures DVT/VTE Risk/Contraindication: Risk Factor Score Per Nursin RFS Level Per Nursing on Admit: 4+=Very High Other: HEMORRHAGIC CVA; ANTIPLATELET CAN BE RESUMED IN 2 WEEKS KAILEY RENE DO Jan 23, 2019 11:43
[2019-01-23 15:49] VITALS: BP 92/61
[2019-01-23 21:09] VITALS: BP 100/61
[2019-01-23] MEDS: doxAzosin 2 MG (CARDURA) TAB PO SCH (21:12)
[2019-01-23] MEDS: ROSUVASTATIN 20 MG (CRESTOR) TABLET PO SCH (21:12)
[2019-01-23] MEDS: LURASIDONE 40 MG (LATUDA) TABLET NON-FORM PO SCH (21:13)
[2019-01-24] MEDS: BETHANECHOL 25 MG (URECHOLINE) TAB PO SCH ×4 (05:01→22:05)
[2019-01-24] MEDS: CATHETER FLUSH 10 ML SYR IV SCH ×3 (05:01→22:06)
[2019-01-24] MEDS: inSUlin ASPART (NovoLOG) 1 UNIT/0.01 ML (CHARGE PER UNIT) SC SCH ×3 (05:01→17:39)
[2019-01-24 05:31] VITALS: BP 99/60
[2019-01-24] MEDS: LEVOTHYROXINE 125 MCG (LEVOTHROID) TABLET PO SCH (05:47)
[2019-01-24] MEDS: FERROUS SULF 325 MG (IRON) TAB PO SCH ×2 (05:50→17:39)
--- NOTE | 2019-01-24 08:22 | Cardiology Progress Note ---
Subjective Date Seen by Provider: Jan 24, 2019 Time Seen by Provider: 08:21 Subjective/Events-last exam Patient in bed, denies any pain. Objective-Cardiology Exam Last Set of Vital Signs Vital Signs 01/24/19 05:31 Temp 97.8 Pulse 73 Resp 16 B/P (MAP) 99/60 (73) Pulse Ox 99 O2 Delivery Room Air Capillary Refill : I&O Intake and Output 01/24/19 00:00 Intake Total 2264 ml Output Total 300 ml Balance 1964 ml Intake Oral 0 ml IV Total 10 ml Tube Feeding 1754 ml Other 500 ml Output Urine Total 300 ml Bladder Scan Volume Amount 409 ml # Urine Diapers 7 # Bowel Movements 6 General: Cooperative, No Acute Distress HEENT: PERRLA Neck: Supple, +2 Carotid Pulse No Bruit Lungs: Clear to Auscultation, Normal Air Movement Heart: Regular Rate, Normal S1, Normal S2 Abdomen: Soft Extremities: No Clubbing, No Cyanosis, No Edema Skin: No Rashes, No Significant Lesion Neuro: Other (right hemiparesis, aphasia) A/P-Cardiology Admission Diagnosis CVA CAD DM Occult + stool Assessment/Plan 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 This is reported to be an ischemic stroke that converted to hemorrhagic stroke that was assoc's with hemorrhagic brain compression (treated conservatively by Neurosurgery at [facility]). Continue with PT. DM II- management per medical services CAD- H/o stents in Sep 2018, but DAPT is being held because of the hemorrhagic component of the stroke. According to the d/c summary dated 01/14/19 from [facility], Neurology has recommended no antiplatelet therapy for at least 2 weeks. Cardiac cath Aug [address] Morris showed severe in-stent re-stenosis in the prox LAD with haziness suggesting thrombus. Severe in-stent re-stenosis at the origin of the first diagonal branch and a focal 80% stenosis in the mid portion of the diagonal between two stented segments. The remainder of the LAD is diffusely stented with mild in-stent re-stenosis. Focal 80% mid-left cx stenosis. At which time repeat revascularization of LAD and first diagonal branch using a combination approach of laser artherectomy, cutting balloon PTCA and multiple ALYSSA stents were placed. Mid area of the first diagonal 2.5 x 8 mm Xience Alpine ALYSSA. The origin tx with a 2.5 x 8 mm Promus ALYSSA. LAD tx with 3 x 12 mm Promus ALYSSA. Cardiac cath of Sep [address] Morris showed a totally occluded diagonal branch off the LAD (medical management advised). Mid left cx stented with a 2.5 x 8 mm Promus ALYSSA. Echo of : LVEF 45%, septal hypokinesis, PASP 25 mmHg. Maintained on TRELL-I, beta maddie. HTN- hypotensive today. I will decrease Coreg, continue to monitor. Reported h/o non-compliance with Plavix noted in cardiology progress note of Sep [address] 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 Clinical Quality Measures DVT/VTE Risk/Contraindication: Risk Factor Score Per Nursin RFS Level Per Nursing on Admit: 4+=Very High Other: HEMORRHAGIC CVA; ANTIPLATELET CAN BE RESUMED IN 2 WEEKS JOSSELINE VENEGAS Jan 24, 2019 08:22
--- NOTE | 2019-01-24 08:49 | PM&R Progress Note ---
Subjective HPI/CC On Admission Date Seen by Provider: Jan 24, 2019 Time Seen by Provider: 08:15 CC: Catastrophic CVA debility HPI: This is a 53-year-old white male who has a past medical history of type II diabetes, CAD w/recent stents placed 09/28 and hypertension who was admitted to [facility] on 01/03/19 due to right sided weakness due to ischemic stroke. He was a phasic on admission and admitted to the ICU at [facility]. The stroke was located in the left MCA region. He did not qualify for TPA. Patient later converted to hemorrhagic stroke for which neurosurgery was consulted. No decompression surgery was required. Patient was on anticoagulation and antiplatelet therapy for the stroke occurred. He had had multiple stents placed in September for which he was on antiplatelet therapy. Both anticoagulation and antiplatelet agents were stopped because of the hemorrhagic progression. [facility] had spoken to neurology and cardiology and antiplatelets can be resumed 2 weeks from time of discharge from [facility] on 01/14/19. Those will be restarted on 01/28/19. Patient also had dysphagia as a result from the stroke and although NG tube was placed for feeding he's failed multiple swallow test and GI waist PEG tube. Currently patient aphasic with also expressive aphasia and requires feedings per PEG tube. Patient does have blanchable areas on his coccyx and right heel of which are being treated aggressively. No evidence of infection around the PEG tube. He did have incontinence stool this morning. His sister is involved in his care but I have not seen her arrived yet. Patient has never and has no other family members. Barriers to returning home include lack of ability to communicate may be a safety hazard if that does not resolve in addition to tube feedings and right- sided paralysis will preclude him from likely doing that himself in addition to major fall risk if he cannot walk on his own. Subjective/Events-last exam Having loose stools Overall improved with communicating Refused to use the communication board group home placement will be required Voiding well and actually incontinent Denies any significant new issues Just had a shower and he is a full two person assist Continues to be a fall risk, can't hold himself up and leans over to the right Review of Systems Neurological: Weakness, Numbness, Incoordination, Change in speech, Confusion Objective Exam Vital Signs Vital Signs Date Time Temp Pulse Resp B/P (MAP) Pulse Ox O2 Delivery O2 Flow Rate FiO2 01/24/19 05:31 97.8 73 16 99/60 (73) 99 Room Air Capillary Refill : General Appearance: No Apparent Distress, Chronically ill, Cachetic, Other HEENT: PERRL/EOMI, Moist Mucous Membranes Neck: Other Respiratory: Lungs Clear, Normal Breath Sounds, No Accessory Muscle Use, No Respiratory Distress Cardiovascular: Regular Rate, Rhythm, No Edema, No Murmur Gastrointestinal: Normal Bowel Sounds, Non Tender, Soft, Other Back: Normal Inspection, No CVA Tenderness, No Vertebral Tenderness, Decreased Range of Motion, Other Extremity: No Calf Tenderness Neurologic/Psychiatric: 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 Assessment/Plan Assessment and Plan Assess & Plan/Chief Complaint Assessment/Plan: (1) Hemorrhagic stroke-not an antiplatelet and anticoagulation candidate until per Neurology specialty (2) Ischemic stroke- catastrophic with right sided paralysis (3) CAD (coronary artery disease)-consulting Dr Burton (4) Presence of stent in coronary artery- 09/28 must stay off Plavix until (5) Aphasia-ST consult (6) Expressive aphasia- ST consult (7) Decubitus ulcer- monitor closely may need wound care if progresses (8) Smoker-smoking cessation (9) Diabetes mellitus-insulin management (10) Temple catheter in place-consulted Dr Klein to help with DC due to infection risk now with incontinence and minimal PVR maintained on Urecholine (11) PEG (percutaneous endoscopic gastrostomy) status-feeding regimen per dietary (12) Dysphagia-NPO (13) Hypothyroidism (acquired)-Home med (14) Anxiety-home med (15) Acute kidney injury- monitor closely creatinine normal today (16) Factor 5 Leiden mutation, heterozygous-no anticoagulation of Xarelto home med until 01/28/19 (17) Hx pulmonary embolism- no anticoagulation of Xarelto home med until 01/28/19 (18) Hypertension- home med (19) History of ST elevation myocardial infarction (STEMI)-Cardiology appreciated (20) Colon polyps (21) Hyponatremia- monitor closely due to brain injury (22) Depression- home med restart (23) CHF (congestive heart failure)- check ECHO 40% last EF a few years ago (24) Cardiomyopathy, ischemic- check ECHO 40% last EF a few years ago (25) COPD (chronic obstructive pulmonary disease)- may need nebs (26) LILY (obstructive sleep apnea)- monitor O2 (27) GERD (gastroesophageal reflux disease)- PPI (28) Hyperlipidemia- statin (29) Renal calculus- no active issues (30) Schizophrenia- chronic disability (31) Marijuana abuse- cessation currently (32) Acute melena with stable H/H s/p EGD and Colonoscopy per Dr Moffett NHP Needs anticoagulation with antiplatelet therapy restarted 01/28/19 DC Latuda and start low dose Risperdal 0.5mg PO BID (1) Hemorrhagic stroke (2) Ischemic stroke (3) Aphasia (4) Decubitus ulcer (5) COPD (chronic obstructive pulmonary disease) (6) Diabetes mellitus (7) Anxiety (8) Expressive aphasia (9) CAD (coronary artery disease) (10) Dysphagia (11) Depression (12) CHF (congestive heart failure) (13) Hyperlipidemia (14) Hyponatremia (15) Renal calculus (16) Marijuana abuse (17) Schizophrenia (18) GERD (gastroesophageal reflux disease) (19) Hypothyroidism (acquired) (20) Hypertension (21) CVA (cerebral vascular accident) (22) LILY (obstructive sleep apnea) (23) Cardiomyopathy, ischemic (24) Colon polyps (25) Temple catheter in place (26) Acute kidney injury (27) Factor 5 Leiden mutation, heterozygous (28) History of ST elevation myocardial infarction (STEMI) (29) Hx pulmonary embolism (30) Melena (31) Iron deficiency (32) Decubitus ulcer of coccyx, stage 2 Clinical Quality Measures DVT/VTE Risk/Contraindication: Risk Factor Score Per Nursin RFS Level Per Nursing on Admit: 4+=Very High Other: HEMORRHAGIC CVA; ANTIPLATELET CAN BE RESUMED IN 2 WEEKS KAILEY RENE DO Jan 24, 2019 08:48
--- NOTE | 2019-01-24 09:11 | Occupational Ther Daily Note ---
OT Current Status-Daily Note Subjective Pt alert, lying in bed. Pt kept closing eyes when OT/PT walked into room. Pt non-verbal, difficult to understand wants/needs. Mental Status/Objective Patient Orientation: Person, Non-Verbal/Aphasic Therapy Code Descriptions/Definitions Functional [place] Measure: 0=Not Assessed/NA 4=Minimal Assistance 1=Total Assistance 5=Supervision or Setup 2=Maximal Assistance 6=Modified [place] 3=Moderate Assistance 7=Complete [place] Attachments: IV, PEG Tube ADL-Treatment PT/OT co-treat for skilled intervention, knowledge and judgment of both disciplines for optimal benefit of the pt. PT worked on positioning pt correctly to facilitate standing, transfers, bed mobility and LE strengthening. OT worked on ADLs, dynamic sitting balance and functional transfers. After therapy, pt lying in bed with call light/phone in reach. Therapy Code Descriptions/Definitions Functional [place] Measure: 0=Not Assessed/NA 4=Minimal Assistance 1=Total Assistance 5=Supervision or Setup 2=Maximal Assistance 6=Modified [place] 3=Moderate Assistance 7=Complete [place] Therapy Quality Codes: 6 Independent with activity with or without an assistive device 5 Patient requires set up or clean up by helper. Patient completes activity by themselves 4 Supervision or touching assist (CGA). [place] provide cues , steadying assist 3 The helper provides less than half the effort to complete the activity 2 The helper provides more than half the effort to complete the activity 1 Dependent. The helper does all the effort to complete an activity 7 Patient refused to complete or attempt activity 9 The patient did not perform the activity before the current illness or injury 88 Not attempted due to Medical conditions or safety concerns Bathing (FIM): 1 (When directed to pt able to wash face, chest and luz area. Assist x2 to maintain upright sitting due to pt pushing R with L UE and attempting to adjust buttocks in chair.) Bathing Location: L Upper Leg, R Upper Leg, Chest, Perineal Area Shower/Bathe Self (QC): 1 Upper Body (FIM): 2 (Pt has demonstrated ability to assist with donning/ doffing shirt by pulling/pushing L UE through sleeve.) Upper Body Dressing (QC): 2 Lower Body Dressing (FIM): 1 (Assist x2 to stand and manipulate clothing. Pt will bridge in supine with assist to hike pants over hips.) Lower Body Dressing (QC): 1 On/Off Footwear (QC): 2 Toileting (FIM): 1 (Pt unable to manipulate clothing and requires assist x2 to cleanse. Will assist turning toward R side.) Toileting Hygiene (QC): 1 Transfers (B, C, W/C) (FIM): 1 (Mod Assist x2 for safety) Shower Transfer(FIM): 1 (Mod A x2 to transfer onto chair. Pt has difficulty with sitting in upright chair and requires assist so that he does not push himself out of chair.) OT Short Term Goals Short Term Goals Time Frame: Jan 21, 2019 Grooming(FIM): 3 Upper Body Dressing(FIM): 3 Lower Body Dressing(FIM): 2 Toilet/Commode Transfer(FIM): 3 Additional Short Term Goals: 1-Demonstrate ADL Tasks, 2-Verbalize Understanding , 3-ImproveStrength/Merlin 1=Demonstrate adherence to instructed precautions during ADL tasks. 2=Patient will verbalize/demonstrate understanding of assistive devices/ modifications for ADL. 3=Patient will improve strength/tolerance for activity to enable patient to perform ADL's. OT Senior Care Goals Senior Care Goals Time Frame: Feb 04, 2019 Eating (FIM): 6 Eating (QC): 5 Groomin Oral Hygiene (QC): 4 Bathing(FIM): 6 Shower/Bathe Self (QC): 3 Upper Body Dressing(FIM): 6 Upper Body Dressing (QC): 3 Lower Body Dressing(FIM): 6 On/Off Footwear (QC): 3 Toileting(FIM): 6 Toileting Hygiene (QC): 3 Toilet/Commode Transfer(FIM): 4 Toilet/Commode Transfer (QC): 3 Shower Transfer(FIM): 3 Comprehension(FIM): 6 Expression (FIM): 6 Social Interaction(FIM): 6 Problem Solving(FIM): 6 Memory(FIM): 6 Additional Goals: 1-Demonstrate ADL Tasks, 2-Verbalize Understanding, 3- ImproveStrength/Merlin 1=Demonstrate adherence to instructed precautions during ADL tasks. 2=Patient will verbalize/demonstrate understanding of assistive devices/ modifications for ADL. 3=Patient will improve strength/tolerance for activity to enable patient to perform ADL's. OT Education/Plan Problem List/Assessment Assessment: Decreased Activ Tolerance, Decreased Safety Aware, Decreased UE Strength, Dependent Transfers, Impaired Bed Mobility, Impaired Coordination, Impaired Funct Balance, Impaired I ADL's, Impaired Self-Care Skills, Restricted Funct UE ROM Pt admitted to ARU following acute hospitalization for CVA. Pt does not demonstrate any active movement of right UE. Pt is nonverbal and has difficulty following commands. Pt to benefit from skilled OT intervention for ADL training , transfers, ROM/strengthening, and safety education to increase level of independence and allow safe discharge plan. Discharge Recommendations Plan/Recommendations: Continue POC Treatment Plan/Plan of Care Patient would benefit from OT for education, treatment and training to promote independence in ADL's, mobility, safety and/or upper extremity function for ADL' s. Plan of Care: ADL Retraining, Functional Mobility, Group Exercise/Act as Ind, UE Funct Exercise/Act, UE Neuromus Re-Ed/Coord, Visual/Perceptual Retrain Treatment Duration: Feb 04, 2019 Frequency: At least 5 of 7 days/Wk (IRF) Estimated Hrs Per Day: 1.5 hours per day Rehab Potential: Guarded Time/GCodes Start Time: 08:00 Stop Time: 09:15 Total Time Billed (hr/min): 75 Billed Treatment Time 1 visit-ADL 4 (60 min) FA 1 (15 min) co-treat with PT [id number] (60 min) individual [id number] (15 min) MARIEL EMMANUEL Jan 24, 2019 09:11
[2019-01-24] MEDS: LEVETIRACETAM 500 MG (KEPPRA) TAB PO SCH ×2 (09:45→22:04)
[2019-01-24] MEDS: PANTOPRAZOLE 40 MG (PROTONIX) TAB PO SCH (09:45)
[2019-01-24] MEDS: GABAPENTIN 600 MG (NEURONTIN) TAB PO SCH ×3 (09:45→22:03)
[2019-01-24] MEDS: ACETAMINOPHEN 500 MG TAB (TYLENOL) PO SCH ×2 (09:46→22:04)
[2019-01-24] MEDS: CARVEDILOL 6.25 MG (COREG) TAB PO SCH (09:57)
[2019-01-24] MEDS: POLYETHYLENE GLYCOL 17 GM (MIRALAX) PACK PO SCH ×2 (09:58→21:15)
[2019-01-24] MEDS: lisINopril 5 MG (PRINIVIL) TABLET PO SCH (09:58)
--- NOTE | 2019-01-24 10:19 | Cardiology Progress Note ---
Subjective Date Seen by Provider: Jan 24, 2019 Time Seen by Provider: 10:19 Subjective/Events-last exam Patient is laying down in bed, no new complaint, no change from baseline Review of Systems General: Other (unable to provide review of systems) Objective-Cardiology Exam Last Set of Vital Signs Vital Signs 01/24/19 05:31 Temp 97.8 Pulse 73 Resp 16 B/P (MAP) 99/60 (73) Pulse Ox 99 O2 Delivery Room Air Capillary Refill : I&O Intake and Output 01/24/19 00:00 Intake Total 2264 ml Output Total 300 ml Balance 1964 ml Intake Oral 0 ml IV Total 10 ml Tube Feeding 1754 ml Other 500 ml Output Urine Total 300 ml Bladder Scan Volume Amount 409 ml # Urine Diapers 7 # Bowel Movements 6 General: Cooperative, No Acute Distress HEENT: PERRLA Neck: Supple, +2 Carotid Pulse No Bruit Lungs: Clear to Auscultation, Normal Air Movement Heart: Regular Rate, Normal S1, Normal S2 Abdomen: Soft Extremities: No Clubbing, No Cyanosis, No Edema Skin: No Rashes, No Significant Lesion Neuro: Other (right hemiparesis, aphasia) Results Lab Laboratory Tests Test 01/23/19 13:57 01/23/19 18:02 01/23/19 21:06 01/23/19 23:07 Range/Units Glucometer 203 H 126 H 106 132 H 70-110 MG/DL Test 01/24/19 04:41 Range/Units Glucometer 140 H 70-110 MG/DL A/P-Cardiology Admission Diagnosis CVA CAD DM Occult + stool Assessment/Plan 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 This is reported to be an ischemic stroke that converted to hemorrhagic stroke that was assoc's with hemorrhagic brain compression ([facility] Continue with PT. DM II- management per medical services CAD- H/o stents in Sep 2018, but DAPT is being held because of the hemorrhagic component of the stroke. According to the d/c summary dated 01/14/19 from [facility], Neurology has recommended no antiplatelet therapy for at least 2 weeks. Cardiac cath Aug [address] Morris showed severe in-stent re-stenosis in the prox LAD with haziness suggesting thrombus. Severe in-stent re-stenosis at the origin of the first diagonal branch and a focal 80% stenosis in the mid portion of the diagonal between two stented segments. The remainder of the LAD is diffusely stented with mild in-stent re-stenosis. Focal 80% mid-left cx stenosis. At which time repeat revascularization of LAD and first diagonal branch using a combination approach of laser artherectomy, cutting balloon PTCA and multiple ALYSSA stents were placed. Mid area of the first diagonal 2.5 x 8 mm Xience Alpine ALYSSA. The origin tx with a 2.5 x 8 mm Promus ALYSSA. LAD tx with 3 x 12 mm Promus ALYSSA. Cardiac cath of Sep [address] Morris showed a totally occluded diagonal branch off the LAD (medical management advised). Mid left cx stented with a 2.5 x 8 mm Promus ALYSSA. Echo of : LVEF 45%, septal hypokinesis, PASP 25 mmHg. Maintained on TRELL-I, beta maddie. HTN- hypotensive today. I will decrease Coreg, continue to monitor. Reported h/o non-compliance with Plavix noted in cardiology progress note of Sep [address] Morris at [facility] (his primary med peds) Occult (+) stool on 01-16-19 - EGD and colonoscopy done revealed no active bleeding. Clinical Quality Measures DVT/VTE Risk/Contraindication: Risk Factor Score Per Nursin RFS Level Per Nursing on Admit: 4+=Very High Other: HEMORRHAGIC CVA; ANTIPLATELET CAN BE RESUMED IN 2 WEEKS OPHELIA JONES MD Jan 24, 2019 10:19
--- NOTE | 2019-01-24 10:29 | Progress Note-Urology ---
Progress Note-Urology Progress Notes/Assess & Plan Progress/Assessment & Plan VOIDING WELL, EMPTIES. TOLERATES MEDICINES WELL Final Diagnosis URINE RETENTION, RESOLVED RAMBO CAMILO MD Jan 24, 2019 10:29
--- NOTE | 2019-01-24 11:03 | Speech Therapy Daily Note ---
Speech Daily Progress Note Subjective Date Seen by Provider: Jan 24, 2019 Time Seen by Provider: 00:30 The patient was laying in bed when I entered the room. The patient appears more alert and was able to watch tv. Objective Patient answered y/n questions related to himself with 70% accuracy utilizing gross assimilations of y/n with moderate verbal cues and/or repetitions, Assessment Assessment Current Status: Fair Progress Treatment Plan Continue Plan of Care Communication Comprehension: 5 Expression: 1 Social Cognition Social Interaction: 3 Problem Solvin Memory: 4 Speech Short Term Goals Short Term Goals Short Term Goals 1) The patient will answer simple y/n questions presented by staff with 80% accuracy given minimal repetitions. 2) The patient will communicate his wants/needs with verbal, gestures or communication board with 80% accuracy given minimal cues. 3) The patient will follow simple 1 step directions at 80% with minimal repetitions. Speech Cad Design Engineer Goals Retirement Goals The patient will be able to effectively communicate his wants/needs with a variety of communication means. Comprehension: 6 Expression: 6 Social Interaction: 6 Problem Solvin Memory: 6 Speech-Plan Patient/Family Goals Patient/Family Goals: The patient's plans are unknown at this time due to decreased ability to communicate. Treatment Plan Speech Therapy Treatment Plan: Continue Plan of Care Patient appears to be feeling better. Treatment Duration: Jan 28, 2019 Frequency: 5 times per week Estimated Hrs Per Day: .5 hour per day Rehab Potential: Guarded Barriers to Learning: New CVA with severe expressive aphasia. Pt/Family Agrees to Plan: Yes Safety Risks/Education Teaching Recipient: Patient Teaching Methods: Discussion Response to Teaching: Verbalize Understanding Education Topics Provided: Communication strategies with multiple aids. Time Speech Therapy Time In: 10:00 Speech Therapy Time Out: 10:30 Total Billed Time: 30 Billed Treatment Time [address] Jan 24, 2019 11:03
--- NOTE | 2019-01-24 12:10 | Physical Therapy Daily Note ---
PT Daily Note-Current Subjective Pt is non verbal, uses types of grunting sounds to answer questions Pain Comment: unable to assess Appearance Pt supine in bed upone arrival, OT present for Co treat Pt incontinent of bowel, luz care provided At end of session, pt supine in bed with OT present Mental Status Patient Orientation: Unable to Assess Attachments: Saline Lock, NG Tube Transfers Therapy Code Descriptions/Definitions Functional [place] Measure: 0=Not Assessed/NA 4=Minimal Assistance 1=Total Assistance 5=Supervision or Setup 2=Maximal Assistance 6=Modified [place] 3=Moderate Assistance 7=Complete [place] Therapy Quality Codes: 6 Independent with activity with or without an assistive device 5 Patient requires set up or clean up by helper. Patient completes activity by themselves 4 Supervision or touching assist (CGA). [place] provide cues , steadying assist 3 The helper provides less than half the effort to complete the activity 2 The helper provides more than half the effort to complete the activity 1 Dependent. The helper does all the effort to complete an activity 7 Patient refused to complete or attempt activity 9 The patient did not perform the activity before the current illness or injury 88 Not attempted due to Medical conditions or safety concerns Transfers (B, C, W/C) (FIM): 2 Scootin Rollin Roll Left to Right (QC): 2 Supine to/from Sit: 2 Sit to/from Stand: 2 Sit to Lying (QC): 2 Sit to Stand (QC): 2 Chair/Xvn-hn-Ogwvq Xfer(QC): 2 Bed to/from Chair: 2 Pt requiring max assist, of 2 for safety, with all transitions between bed, w/c , shower chair Weight Bearing Weight Bearing/Tolerated Weight Bearing/Tolerated Wheelchair Training Does the Pt Use a Wheelchair?: Yes Wheelchair (FIM): 1 Wheelchair Distance: 1=up to 49 ft Distance: 30 Wheelchair Level of Assist: 1 Type of Wheelchair: Manual max encouragement required for pt to perform and to use LLE to help guide, physical assist required to guide w/c from running into objects Exercises Seated Therapy Exercises: Long arc quads, Hip flexion Seated Reps: 10 PROM RLE, tactile cueing LLE Treatments bed mobility, luz care, transfers, ther ex, strengthening, shower, functional mobility, w/c mobility training, safety, positioning Assessment Pt requiring at least max assist with all activities, tactile cueing to perform exercises with LLE PT Short Term Goals Short Term Goals Time Frame: Jan 21, 2019 Gait (FIM): 1 Gait Distance Comment: 8' Gait Level of Assist: 2 Gait Assistive Device: Parallel Bars Wheelchair Distance: 125' PT Assisted Goals Assisted Goals PT Assisted Goals Time Frame: Feb 04, 2019 Transfers (B,C,W/C) (FIM): 4 Sit to Lying (QC): 3 Lying-Sitting on Side/Bed(QC): 3 Sit to Stand (QC): 3 Rollin Roll Left to Right (QC): 3 Chair/Xbz-pg-Whdap Xfer(QC): 3 Car Transfer (QC): 3 Gait (FIM): 6 Distance: 20' Walk 10 feet (QC): 3 Gait Level of Assist: 4 Gait Assistive Device: Walker Dmitry Wheelchair (FIM): 6 Distance: 50' Wheelchair Level of Assist: 3 Wheel 50 feet with 2 turns (QC: 2 PT Plan Treatment/Plan Treatment Plan: Continue Plan of Care Treatment Plan: Bed Mobility, Concurrent Therapy, Education, Functional Activity Merlin, Functional Strength, Group Therapy, Gait, Safety, Therapeutic Exercise, Transfers Treatment Duration: Feb 04, 2019 Frequency: At least 5 of 7 days/Wk (IRF) Estimated Hrs Per Day: 1.5 hours per day Patient and/or Family Agrees t: Yes Safety Risks/Education Patient Education: Transfer Techniques, Correct Positioning, W/C Management, Safety Issues Teaching Recipient: Patient Teaching Methods: Demonstration, Discussion Response to Teaching: Return Demonstration, Reinforcement Needed Time/GCodes Time In: 800 Time Out: 900 Total Billed Treatment Time: 60 Total Billed Treatment 1 visit, FA x3, W[facility] x1 co treat with OT due to pt's condition SHLOMOMARIA LUISA ENGLISH TEACHER Jan 24, 2019 12:10
--- NOTE | 2019-01-24 13:01 | Physical Therapy Daily Note ---
PT Daily Note-Current Subjective Pt. in bed alert but not understandable when vocalizes. Pt. did attempt to sing along with the nurse when she sang "Proud Cristina" . smiled and responded Mental Status Patient Orientation: Mumbles Transfers Therapy Code Descriptions/Definitions Functional [place] Measure: 0=Not Assessed/NA 4=Minimal Assistance 1=Total Assistance 5=Supervision or Setup 2=Maximal Assistance 6=Modified [place] 3=Moderate Assistance 7=Complete [place] Therapy Quality Codes: 6 Independent with activity with or without an assistive device 5 Patient requires set up or clean up by helper. Patient completes activity by themselves 4 Supervision or touching assist (CGA). [place] provide cues , steadying assist 3 The helper provides less than half the effort to complete the activity 2 The helper provides more than half the effort to complete the activity 1 Dependent. The helper does all the effort to complete an activity 7 Patient refused to complete or attempt activity 9 The patient did not perform the activity before the current illness or injury 88 Not attempted due to Medical conditions or safety concerns Weight Bearing Weight Bearing/Tolerated Weight Bearing/Tolerated Exercises Supine Ex: Ankle pumps, Rolling, Heel Slides, Scooting, D1 F/E UE, Straight leg raise, D2 F/E UE, Hip abd/add Supine Reps: 15 Treatments rolling left and right for change of brief as well as gown and pad under patient , wet with urine Assessment Current Status: Fair Progress positioned in left side lying with pillows and foot positioning aparatus PT Short Term Goals Short Term Goals Time Frame: Jan 21, 2019 Gait (FIM): 1 Gait Distance Comment: 8' Gait Level of Assist: 2 Gait Assistive Device: Parallel Bars Wheelchair Distance: 30 PT Chief Dog License Inspector Goals Chief Dog License Inspector Goals PT Usp Goals Time Frame: Feb 04, 2019 Transfers (B,C,W/C) (FIM): 4 Sit to Lying (QC): 3 Lying-Sitting on Side/Bed(QC): 3 Sit to Stand (QC): 3 Rollin Roll Left to Right (QC): 3 Chair/Fvb-em-Hkmkc Xfer(QC): 3 Car Transfer (QC): 3 Gait (FIM): 6 Distance: 20' Walk 10 feet (QC): 3 Gait Level of Assist: 4 Gait Assistive Device: Walker Dmitry Wheelchair (FIM): 6 Distance: 50' Wheelchair Level of Assist: 3 Wheel 50 feet with 2 turns (QC: 2 PT Plan Treatment/Plan Treatment Plan: Continue Plan of Care Treatment Plan: Bed Mobility, Concurrent Therapy, Education, Functional Activity Merlin, Functional Strength, Group Therapy, Gait, Safety, Therapeutic Exercise, Transfers Treatment Duration: Feb 04, 2019 Frequency: At least 5 of 7 days/Wk (IRF) Estimated Hrs Per Day: 1.5 hours per day Patient and/or Family Agrees t: Yes Time/GCodes Time In: 1325 Time Out: 1345 Total Billed Treatment Time: 20 Total Billed Treatment 1,EX20m G Codes Necessary: KAREN Lee AVIAN KEEPER Jan 24, 2019 13:00
--- NOTE | 2019-01-24 16:45 | NUR ---
LOOSE HAND PACKER spoke with Dr. Marcelino in regards to medication evaluation. Dr. Marcelino recommends patient transitioned from with 2-2 spared all with dosage between 1 and 4 mg twice a day. LOOSE HAND PACKER notified Dr. Alicia of this recommendation, Dr. Alicia transitioned patient to respite all 0.5 mg twice a day. LOOSE HAND PACKER contacted patient's sister in regards to SNIF placement as patient has not a significant progression. LOOSE HAND PACKER also informed sister of denial at [facility], sister requested information be sent to [facility]. LOOSE HAND PACKER sent referral information. [facility] has received clinical info and team is reviewing. FELIPA Guidry at [facility] has reviewed information and can accept patient for placement tomorrow, if first choice of NHC declines. LOOSE HAND PACKER provided update to patient and patient's sister. LOOSE HAND PACKER confirmed with Brea that [facility] and nursing home certification will be complete and that if patient requires level II due to psych diagnoses, a level II screening can be initiated once patient admits to facility.
[2019-01-24 18:00] VITALS: BP 103/70
--- NOTE | 2019-01-24 19:25 | NUR ---
bedside report received from JENNIFER REGAN, assume care of pt
[2019-01-24] MEDS: CARVEDILOL 3.125 MG (COREG) TABLET PO SCH (21:10)
--- NOTE | 2019-01-24 21:30 | NUR ---
pt incontinent of bowel & bladder, pt washed & linen changed, fsbs 128 prior to Levemir insulin given, gastric residual 5ml, tube feeding continues Glucerna 1.5 at 60ml/hr & 100ml water q 4hrs.
--- NOTE | 2019-01-24 21:45 | NUR ---
assessments & interventions completed, see assessments & interventions, miralax held due to loose stools, Coreg 3.125mg held due to decreased b/p 96/63-81-18-96%, NIH stroke scale score 20, positioned on side with [facility] elevated
[2019-01-24 22:00] VITALS: BP 96/63
[2019-01-24] MEDS: doxAzosin 2 MG (CARDURA) TAB PO SCH (22:02)
[2019-01-24] MEDS: risperiDONE 0.25 MG (RisperDAL) TAB PO SCH (22:03)
[2019-01-24] MEDS: ROSUVASTATIN 20 MG (CRESTOR) TABLET PO SCH (22:04)
[2019-01-25] MEDS: inSUlin ASPART (NovoLOG) 1 UNIT/0.01 ML (CHARGE PER UNIT) SC SCH ×3 (01:04→12:22)
--- NOTE | 2019-01-25 04:00 | NUR ---
pt has voided incontinent several times, bladder scan completed with 258ml showing on scanner
[2019-01-25 05:34] VITALS: BP 96/61
[2019-01-25] MEDS: LEVOTHYROXINE 125 MCG (LEVOTHROID) TABLET PO SCH (06:26)
[2019-01-25] MEDS: FERROUS SULF 325 MG (IRON) TAB PO SCH ×2 (06:27→17:03)
[2019-01-25] MEDS: BETHANECHOL 25 MG (URECHOLINE) TAB PO SCH ×3 (06:27→17:03)
[2019-01-25] MEDS: CATHETER FLUSH 10 ML SYR IV SCH ×2 (06:28→17:15)
--- NOTE | 2019-01-25 07:31 | NUR ---
bedside report given to EKATERINA REGAN
--- NOTE | 2019-01-25 08:20 | Cardiology Progress Note ---
Subjective Date Seen by Provider: Jan 25, 2019 Time Seen by Provider: 08:18 Subjective/Events-last exam Patient is in bed, alert and in NAD. Denies any chest pain Objective-Cardiology Exam Last Set of Vital Signs Vital Signs 01/25/19 01/25/19 01/25/19 05:34 09:00 09:15 Temp 97.6 Pulse 78 Resp 18 B/P (MAP) 99/67 (78) Pulse Ox 100 O2 Delivery Room Air Capillary Refill : I&O Intake and Output 01/25/19 00:00 Intake Total 2301 ml Balance 2301 ml Intake Oral 0 ml IV Total 10 ml Tube Feeding 1490 ml Other 801 ml # Urine Diapers 9 # Bowel Movements 5 General: Cooperative, No Acute Distress HEENT: PERRLA Neck: Supple, +2 Carotid Pulse No Bruit Lungs: Clear to Auscultation, Normal Air Movement Heart: Regular Rate, Normal S1, Normal S2 Abdomen: Soft Extremities: No Clubbing, No Cyanosis, No Edema Skin: No Rashes, No Significant Lesion Neuro: Other (right hemiparesis, aphasia) A/P-Cardiology Admission Diagnosis CVA CAD DM Occult + stool Assessment/Plan 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 This is reported to be an ischemic stroke that converted to hemorrhagic stroke that was assoc's with hemorrhagic brain compression (treated conservatively by [facility] at [facility]). Continue with PT. DM II- management per medical services CAD- H/o stents in Sep 2018, but DAPT is being held because of the hemorrhagic component of the stroke. According to the d/c summary dated 01/14/19 from [facility], Neurology has recommended no antiplatelet therapy for at least 2 weeks. Cardiac cath Aug [address] Morris showed severe in-stent re-stenosis in the prox LAD with haziness suggesting thrombus. Severe in-stent re-stenosis at the origin of the first diagonal branch and a focal 80% stenosis in the mid portion of the diagonal between two stented segments. The remainder of the LAD is diffusely stented with mild in-stent re-stenosis. Focal 80% mid-left cx stenosis. At which time repeat revascularization of LAD and first diagonal branch using a combination approach of laser artherectomy, cutting balloon PTCA and multiple ALYSSA stents were placed. Mid area of the first diagonal 2.5 x 8 mm Xience Alpine ALYSSA. The origin tx with a 2.5 x 8 mm Promus ALYSSA. LAD tx with 3 x 12 mm Promus ALYSSA. Cardiac cath of Sep [address] Morris showed a totally occluded diagonal branch off the LAD (medical management advised). Mid left cx stented with a 2.5 x 8 mm Promus ALYSSA. Echo of : LVEF 45%, septal hypokinesis, PASP 25 mmHg. Maintained on TRELL-I, beta maddie. HTN- borderline hypotension. Continue to monitor. Reported h/o non-compliance with Plavix noted in cardiology progress note of Sep [address] Morris at [facility] (his primary board finisher) Occult (+) stool on 01-16-19 - EGD and colonoscopy done revealed no active bleeding. Clinical Quality Measures DVT/VTE Risk/Contraindication: Risk Factor Score Per Nursin RFS Level Per Nursing on Admit: 4+=Very High Other: HEMORRHAGIC CVA; ANTIPLATELET CAN BE RESUMED IN 2 WEEKS Supervisory-Addendum Brief Supervisory Addendum Participated in pt care: history, MDM, physical Personally performed: exam, history, MDM Care discussed with: DINORAH Results interpretation: agree with documentation Notes: Patient was seen and evaluated, I agree with the current assessment and plan, and examination no change was noted. Continue to monitor and continue with physical therapy JOSSELINE VENEGAS Jan 25, 2019 8:20 am OPHELIA JONES MD Jan 25, 2019 6:48 pm
--- NOTE | 2019-01-25 08:23 | Therapy Team Discharge Summary ---
Therapy Discharge Summary Discharge Recommendations Date of Discharge Therapy D/C Recommendations: Home w/ Family Support, [facility] (TCU/NH) Occupational Therapy Decreased Activ Tolerance, Decreased Safety Aware, Decreased UE Strength, Dependent Transfers, Impaired Bed Mobility, Impaired Coordination, Impaired Funct Balance, Impaired I ADL's, Impaired Self-Care Skills, Restricted Funct UE ROM Speech-Language Pathology The patient was admitted to the ARU s/p CVA which left him with right side paralysis and severe expressive aphasia. The patient's receptive language component is in tact.The patient is able to follow directions and follow conversations. He utilizes a communication board to express his wants/needs. He grossly assimilates y/n answers which can be understood within context. The patient is being discharged to SNF for continued therapy services. He is being discharged from skilled this date. PT Jail Goals Jail Goals PT Jail Goals Time Frame: Feb 04, 2019 Transfers (B,C,W/C) (FIM): 4 Roll Left to Right (QC): 3 Sit to Lying (QC): 3 Lying-Sitting on Side/Bed(QC): 3 Sit to Stand (QC): 3 Chair/Aej-af-Ronfr Xfer(QC): 3 Car Transfer (QC): 3 Gait (FIM): 6 Distance: 20' Walk 10 feet (QC): 3 Gait Level of Assist: 4 Gait Assistive Device: Walker Dmitry Wheelchair (FIM): 6 Distance: 50' Wheelchair Level of Assist: 3 Wheel 50 feet with 2 turns (QC: 2 OT Jail Goals Wastewater Treatment Operator Goals Time Frame: Feb 04, 2019 Eating (FIM): 6 Eating (QC): 5 Oral Hygiene (QC): 4 Grooming(FIM): 6 Bathing(FIM): 6 Shower/Bathe Self (QC): 3 Upper Body Dressing(FIM): 6 Upper Body Dressing (QC): 3 Lower Body Dressing(FIM): 6 On/Off Footwear (QC): 3 Toileting(FIM): 6 Toileting Hygiene (QC): 3 Toilet/Commode Transfer(FIM): 4 Toilet/Commode Transfer (QC): 3 Shower Transfer(FIM): 3 Comprehension(FIM): 6 Expression (FIM): 6 Social Interaction(FIM): 6 Problem Solving(FIM): 6 Memory(FIM): 6 Additional Goals: 1-Demonstrate ADL Tasks, 2-Verbalize Understanding, 3- ImproveStrength/Merlin 1=Demonstrate adherence to instructed precautions during ADL tasks. 2=Patient will verbalize/demonstrate understanding of assistive devices/ modifications for ADL. 3=Patient will improve strength/tolerance for activity to enable patient to perform ADL's. Speech Jail Goals Jail Goals The patient will be able to effectively communicate his wants/needs with a variety of communication means. Met at 75% Comprehension: 6 Expression: 6 Social Interaction: 6 Problem Solvin Memory: 6 ELDER DAVILA Jan 25, 2019 08:23
--- NOTE | 2019-01-25 08:41 | Progress Note-Urology ---
Progress Note-Urology Progress Notes/Assess & Plan Progress/Assessment & Plan CONTINUES VOIDING ON OWN. PVR 256. KEEP SAME PLAN AND SEE HIM PRN Final Diagnosis URINE RETENTION (RESOLVING) RAMBO CAMILO MD Jan 25, 2019 08:41
[2019-01-25] MEDS ORDERED: Bethanechol Chl PO (08:52)
[2019-01-25] MEDS ORDERED: LISI-556 PO (08:52)
[2019-01-25] MEDS ORDERED: RIVA20TA2 PO (08:52)
[2019-01-25] MEDS ORDERED: CARV3.122 PO (08:52)
[2019-01-25] MEDS ORDERED: INSU100V5 SQ (08:52)
[2019-01-25] MEDS ORDERED: LEVE500T6 PO (08:52)
[2019-01-25] MEDS ORDERED: INSU100V16 SC (08:52)
[2019-01-25] MEDS ORDERED: CLOP75TA69 PO (08:52)
[2019-01-25] MEDS ORDERED: SALI45SP MM (08:52)
[2019-01-25] MEDS ORDERED: RISP0.253 PO (08:52)
[2019-01-25] MEDS ORDERED: DOXA2TAB2 PO (08:52)
[2019-01-25] MEDS ORDERED: LEVO125T PO (08:52)
--- NOTE | 2019-01-25 08:54 | Discharge Inst-Skilled Nursing ---
Discharge Inst-Skilled NF Patient Instructions Patient Problems: Catastrophic CVA ischemic and henorrhagic Chronic schizophrenia Factor V Leiden with DVT/PE's in the past Goal: Independent ADL's Consult/Follow Up/Orders Follow Up Appt.: PCP in 2 weeks Skilled NF Admit to: Certification (SNF) I certify that SNF services are required to be given on an inpatient basis because of the above named patient's need for [facility] care on a continuing basis for the conditions(s) for which he/she was receiving inpatient hospital services prior to his/her transfer to the SNF. [facility] Facility Order: Nursing Services, Letter Stamping Machine Operator-Evaluate & Treat, Physical Therapy-Evaluate & Treat, Speech Language-Evaluate & Treat, Wound Care-Eval/Treat Oxygen Delivery Method: Room Air Discharge Diet: Other Diet (tube feeding per dietary recs) Daily Activity as Tolerated: Yes New & Resume Previous Orders Amanda Alicia Jan 25, 2019 08:52 Pneu Vac Indicated: Yes AMANDA ALICIA DO Jan 25, 2019 08:54
--- NOTE | 2019-01-25 08:55 | Discharge Summary ---
Diagnosis/Chief Complaint Date of Admission Jan 14, 2019 at 15:55 Date of Discharge Discharge Date: Jan 25, 2019 Discharge Diagnosis Assess & Plan/Chief Complaint Assessment/Plan: (1) Hemorrhagic stroke-not an antiplatelet and anticoagulation candidate until per Neurology specialty (2) Ischemic stroke- catastrophic with right sided paralysis (3) CAD (coronary artery disease)-consulting Dr Butron (4) Presence of stent in coronary artery- 09/28 must stay off Plavix until (5) Aphasia-ST consult (6) Expressive aphasia- ST consult (7) Decubitus ulcer- monitor closely may need wound care if progresses (8) Smoker-smoking cessation (9) Diabetes mellitus-insulin management (10) Temple catheter in place-consulted Dr Klein to help with DC due to infection risk now with incontinence and minimal PVR maintained on Urecholine (11) PEG (percutaneous endoscopic gastrostomy) status-feeding regimen per dietary (12) Dysphagia-NPO (13) Hypothyroidism (acquired)-Home med (14) Anxiety-home med (15) Acute kidney injury- monitor closely creatinine normal today (16) Factor 5 Leiden mutation, heterozygous-no anticoagulation of Xarelto home med until 01/28/19 (17) Hx pulmonary embolism- no anticoagulation of Xarelto home med until 01/28/19 (18) Hypertension- home med (19) History of ST elevation myocardial infarction (STEMI)-Cardiology appreciated (20) Colon polyps (21) Hyponatremia- monitor closely due to brain injury (22) Depression- home med restart (23) CHF (congestive heart failure)- check ECHO 40% last EF a few years ago (24) Cardiomyopathy, ischemic- check ECHO 40% last EF a few years ago (25) COPD (chronic obstructive pulmonary disease)- may need nebs (26) LILY (obstructive sleep apnea)- monitor O2 (27) GERD (gastroesophageal reflux disease)- PPI (28) Hyperlipidemia- statin (29) Renal calculus- no active issues (30) Schizophrenia- chronic disability (31) Marijuana abuse- cessation currently (32) Acute melena with stable H/H s/p EGD and Colonoscopy per Dr [facility] Needs anticoagulation with antiplatelet therapy restarted 01/28/19 DC Latuda and start low dose Risperdal 0.5mg PO BID (1) Hemorrhagic stroke (2) Ischemic stroke (3) Aphasia (4) Decubitus ulcer (5) COPD (chronic obstructive pulmonary disease) (6) Diabetes mellitus (7) Anxiety (8) Expressive aphasia (9) CAD (coronary artery disease) (10) Dysphagia (11) Depression (12) CHF (congestive heart failure) (13) Hyperlipidemia (14) Hyponatremia (15) Renal calculus (16) Marijuana abuse (17) Schizophrenia (18) GERD (gastroesophageal reflux disease) (19) Hypothyroidism (acquired) (20) Hypertension (21) CVA (cerebral vascular accident) (22) LILY (obstructive sleep apnea) (23) Cardiomyopathy, ischemic (24) Colon polyps (25) Temple catheter in place (26) Acute kidney injury (27) Factor 5 Leiden mutation, heterozygous (28) History of ST elevation myocardial infarction (STEMI) (29) Hx pulmonary embolism (30) Melena (31) Iron deficiency (32) Decubitus ulcer of coccyx, stage 2 Discharge Summary Discharge Physical Examination Allergies: Coded Allergies: tramadol (Verified Allergy, Severe, N/V, throat swells, 01/14/19) codeine (Verified Allergy, Intermediate, SOA,Wheezing, 01/14/19) citalopram (Verified Allergy, Mild, dizziness, 01/14/19) nalbuphine (Verified Allergy, Mild, itching, 01/14/19) Vitals & I&Os Vital Signs Date Time Temp Pulse Resp B/P (MAP) Pulse Ox O2 Delivery O2 Flow Rate FiO2 01/25/19 18:53 78 18 99/67 100 Room Air 01/25/19 05:34 97.6 Hospital Course Was the Problem List Reviewed?: Yes Hospital course: Pt had an uneventful hospital course for 11 days after ischemic stroke that extended into hemorrhagic one. Pt had a history of factor five leiden with multiple DVTs and PEs in the past but required discontinuation of the anticoagulation and anti platelet therapy of which he was on for a recent coronary stent in September because of a hemorrhagic stroke that will be restarted on 01/28/19. Tube feedings were tolerated. No evidence that swallow was regaining at time of DC so will continue working on that and speech therapy at the [facility]. He will go to [facility]. He does have a PCP. Urecholine will be maintained for urinary retention following a stroke. 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 Labs (last 24 hrs) Laboratory Tests 01/14/19 17:33: Glucometer 130H 01/14/19 20:59: Glucometer 108 01/15/19 04:25: White Blood Count 8.5, Red Blood Count 3.83L, Hemoglobin 11.5L, Hematocrit 35L, Mean Corpuscular Volume 91, Mean Corpuscular Hemoglobin 30, Mean Corpuscular Hemoglobin Concent 33, Red Cell Distribution Width 13.6, Platelet Count 291, Mean Platelet Volume 11.4H, Neutrophils (%) (Auto) 60, Lymphocytes (%) (Auto) 29 , Monocytes (%) (Auto) 8, Eosinophils (%) (Auto) 3, Basophils (%) (Auto) 1, Neutrophils # (Auto) 5.1, Lymphocytes # (Auto) 2.4, Monocytes # (Auto) 0.6, Eosinophils # (Auto) 0.3, Basophils # (Auto) 0.1, Sodium Level 145, Potassium Level 4.2, Chloride Level 111H, Carbon Dioxide Level 26, Anion Gap 8, Blood Urea Nitrogen 25H, Creatinine 0.78, Estimat Glomerular Filtration Rate > 60, BUN /Creatinine Ratio 32, Glucose Level 126H, Calcium Level 9.4, Corrected Calcium 10.1, Total Bilirubin 0.3, Aspartate Amino Transf (AST/SGOT) 32, Alanine Aminotransferase (ALT/SGPT) 29, Alkaline Phosphatase 82, Total Protein 6.6, Albumin 3.1L 01/15/19 11:35: Glucometer 160H 01/15/19 16:41: Glucometer 161H 01/15/19 20:47: Glucometer 163H 01/16/19 06:17: Glucometer 204H 01/16/19 11:56: Glucometer 198H 01/16/19 18:09: Glucometer 196H 01/16/19 19:10: Stool Occult Blood Immunoassay POSITIVEH 01/16/19 21:11: Glucometer 178H 01/17/19 05:55: Glucometer 236H 01/17/19 08:06: White Blood Count 11.3H, Red Blood Count 3.90L, Hemoglobin 11.9L, Hematocrit 34L , Mean Corpuscular Volume 88, Mean Corpuscular Hemoglobin 31, Mean Corpuscular Hemoglobin Concent 35, Red Cell Distribution Width 13.8, Platelet Count 271, Mean Platelet Volume 11.6H, Neutrophils (%) (Auto) 75, Lymphocytes (%) (Auto) 16 , Monocytes (%) (Auto) 8, Eosinophils (%) (Auto) 1, Basophils (%) (Auto) 0, Neutrophils # (Auto) 8.5H, Lymphocytes # (Auto) 1.8, Monocytes # (Auto) 0.9, Eosinophils # (Auto) 0.2, Basophils # (Auto) 0.0, Prothrombin Time 13.6, INR Comment 1.0, Activated Partial Thromboplast Time 28, Sodium Level 134L, Potassium Level 4.4, Chloride Level 104, Carbon Dioxide Level 22, Anion Gap 8, Blood Urea Nitrogen 14, Creatinine 0.77, Estimat Glomerular Filtration Rate > 60 , BUN/Creatinine Ratio 18, Glucose Level 219H, Calcium Level 9.0, Corrected Calcium 9.6, Iron Level 25L, Total Bilirubin 0.4, Aspartate Amino Transf (AST/ SGOT) 26, Alanine Aminotransferase (ALT/SGPT) 26, Alkaline Phosphatase 80, Total Protein 6.7, Albumin 3.3 01/17/19 10:57: Glucometer 236H 01/17/19 16:11: Glucometer 204H 01/17/19 20:56: Glucometer 155H 01/18/19 03:43: Glucometer 168H 01/18/19 05:45: Glucometer 164H 01/18/19 10:53: Glucometer 202H 01/18/19 14:05: Glucometer 186H 01/18/19 15:46: Glucometer 176H 01/19/19 00:01: Glucometer 162H 01/19/19 06:04: Glucometer 186H 01/19/19 10:55: Glucometer 189H 01/19/19 18:05: Glucometer 158H 01/20/19 00:04: Glucometer 157H 01/20/19 05:40: Glucometer 216H 01/20/19 11:43: Glucometer 182H 01/20/19 17:41: Glucometer 154H 01/20/19 23:38: Glucometer 173H 01/21/19 05:08: Glucometer 164H 01/21/19 11:34: Glucometer 201H 01/21/19 15:38: Glucometer 125H 01/21/19 17:43: Glucometer 172H 01/22/19 00:44: Glucometer 206H 01/22/19 06:30: Glucometer 225H 01/22/19 11:16: Glucometer 192H 01/22/19 17:59: Glucometer 152H 01/22/19 20:56: Glucometer 159H 01/22/19 23:01: Glucometer 166H 01/23/19 04:48: Glucometer 179H 01/23/19 13:57: Glucometer 203H 01/23/19 18:02: Glucometer 126H 01/23/19 21:06: Glucometer 106 01/23/19 23:07: Glucometer 132H 01/24/19 04:41: Glucometer 140H 01/24/19 12:25: Glucometer 193H 01/24/19 17:37: Glucometer 128H 01/24/19 21:59: Glucometer 128H 01/25/19 00:02: Glucometer 142H 01/25/19 05:46: Glucometer 149H 01/25/19 10:46: Glucometer 109 Microbiology 01/18/19 MRSA Screen - Final, Complete MRSA not isolated Pending Labs Microbiology Date/Time Source Procedure Growth Status 01/18/19 03:45 Nasal MRSA Screen - Final MRSA not isolated Complete Laboratory Tests 01/14/19 17:33: Glucometer 130 01/14/19 20:59: Glucometer 108 01/15/19 04:25: White Blood Count 8.5, Red Blood Count 3.83, Hemoglobin 11.5, Hematocrit 35, Mean Corpuscular Volume 91, Mean Corpuscular Hemoglobin 30, Mean Corpuscular Hemoglobin Concent 33, Red Cell Distribution Width 13.6, Platelet Count 291, Mean Platelet Volume 11.4, Neutrophils (%) (Auto) 60, Lymphocytes (%) (Auto) 29 , Monocytes (%) (Auto) 8, Eosinophils (%) (Auto) 3, Basophils (%) (Auto) 1, Neutrophils # (Auto) 5.1, Lymphocytes # (Auto) 2.4, Monocytes # (Auto) 0.6, Eosinophils # (Auto) 0.3, Basophils # (Auto) 0.1, Sodium Level 145, Potassium Level 4.2, Chloride Level 111, Carbon Dioxide Level 26, Anion Gap 8, Blood Urea Nitrogen 25, Creatinine 0.78, Estimat Glomerular Filtration Rate > 60, BUN/ Creatinine Ratio 32, Glucose Level 126, Calcium Level 9.4, Corrected Calcium 10.1, Total Bilirubin 0.3, Aspartate Amino Transf (AST/SGOT) 32, Alanine Aminotransferase (ALT/SGPT) 29, Alkaline Phosphatase 82, Total Protein 6.6, Albumin 3.1 01/15/19 11:35: Glucometer 160 01/15/19 16:41: Glucometer 161 01/15/19 20:47: Glucometer 163 01/16/19 06:17: Glucometer 204 01/16/19 11:56: Glucometer 198 01/16/19 18:09: Glucometer 196 01/16/19 19:10: Stool Occult Blood Immunoassay POSITIVE 01/16/19 21:11: Glucometer 178 01/17/19 05:55: Glucometer 236 01/17/19 08:06: White Blood Count 11.3, Red Blood Count 3.90, Hemoglobin 11.9, Hematocrit 34, Mean Corpuscular Volume 88, Mean Corpuscular Hemoglobin 31, Mean Corpuscular Hemoglobin Concent 35, Red Cell Distribution Width 13.8, Platelet Count 271, Mean Platelet Volume 11.6, Neutrophils (%) (Auto) 75, Lymphocytes (%) (Auto) 16 , Monocytes (%) (Auto) 8, Eosinophils (%) (Auto) 1, Basophils (%) (Auto) 0, Neutrophils # (Auto) 8.5, Lymphocytes # (Auto) 1.8, Monocytes # (Auto) 0.9, Eosinophils # (Auto) 0.2, Basophils # (Auto) 0.0, Prothrombin Time 13.6, INR Comment 1.0, Activated Partial Thromboplast Time 28, Sodium Level 134, Potassium Level 4.4, Chloride Level 104, Carbon Dioxide Level 22, Anion Gap 8, Blood Urea Nitrogen 14, Creatinine 0.77, Estimat Glomerular Filtration Rate > 60 , BUN/Creatinine Ratio 18, Glucose Level 219, Calcium Level 9.0, Corrected Calcium 9.6, Iron Level 25, Total Bilirubin 0.4, Aspartate Amino Transf (AST/ SGOT) 26, Alanine Aminotransferase (ALT/SGPT) 26, Alkaline Phosphatase 80, Total Protein 6.7, Albumin 3.3 01/17/19 10:57: Glucometer 236 01/17/19 16:11: Glucometer 204 01/17/19 20:56: Glucometer 155 01/18/19 03:43: Glucometer 168 01/18/19 05:45: Glucometer 164 01/18/19 10:53: Glucometer 202 01/18/19 14:05: Glucometer 186 01/18/19 15:46: Glucometer 176 01/19/19 00:01: Glucometer 162 01/19/19 06:04: Glucometer 186 01/19/19 10:55: Glucometer 189 01/19/19 18:05: Glucometer 158 01/20/19 00:04: Glucometer 157 01/20/19 05:40: Glucometer 216 01/20/19 11:43: Glucometer 182 01/20/19 17:41: Glucometer 154 01/20/19 23:38: Glucometer 173 01/21/19 05:08: Glucometer 164 01/21/19 11:34: Glucometer 201 01/21/19 15:38: Glucometer 125 01/21/19 17:43: Glucometer 172 01/22/19 00:44: Glucometer 206 01/22/19 06:30: Glucometer 225 01/22/19 11:16: Glucometer 192 01/22/19 17:59: Glucometer 152 01/22/19 20:56: Glucometer 159 01/22/19 23:01: Glucometer 166 01/23/19 04:48: Glucometer 179 01/23/19 13:57: Glucometer 203 01/23/19 18:02: Glucometer 126 01/23/19 21:06: Glucometer 106 01/23/19 23:07: Glucometer 132 01/24/19 04:41: Glucometer 140 01/24/19 12:25: Glucometer 193 01/24/19 17:37: Glucometer 128 01/24/19 21:59: Glucometer 128 01/25/19 00:02: Glucometer 142 01/25/19 05:46: Glucometer 149 01/25/19 10:46: Glucometer 109 Discharge Home Medications: Active Scripts Active Biotene Moisturizing Mouth (Saliva Stimulant Agents Comb.3) 1 Each [place] 0 Each MM NEEDED PRN 30 Days Synthroid (Levothyroxine Sodium) 125 Mcg Tablet 125 Mcg PO DAILY@0630 30 Days Levemir (Insulin Determir) 1,000 Units/10 Ml Soln 15 Unit SQ HS 30 Days Novolog (Insulin Aspart) 100 Unit/1 Ml Susp 10 Unit SC Q6HR 30 Days Risperidone 0.25 Mg Tablet 0.5 Mg PO BID 30 Days Levetiracetam 500 Mg Tablet 500 Mg PO BID 30 Days Lisinopril 5 Mg Tablet 2.5 Mg PO DAILY 30 Days Carvedilol 3.125 Mg Tablet 3.125 Mg PO BID 30 Days Doxazosin Mesylate 2 Mg Tablet 2 Mg PO HS 30 Days [Bethanechol Chl] 25 MG Tab 25 Mg PO ACHS 30 Days Plavix (Clopidogrel Bisulfate) 75 Mg Tablet 75 Mg PO DAILY 30 Days Begin 01/28/19 Xarelto Tablet (Rivaroxaban) 20 Mg Tablet 20 Mg PO DAILY 30 Days Begin 01/28/19 Reported Viibryd (Vilazodone Hydrochloride) 40 Mg Tablet 40 Mg PO DAILY LAST FILLED #30 11-13-18 Crestor (Rosuvastatin Calcium) 40 Mg Tablet 40 Mg PO HS Miralax (Polyethylene Glycol 3350) 17 Gm Powd.pack 17 Gm PO BID Pantoprazole Sodium 40 Mg Tablet.dr 40 Mg PO DAILY Ondansetron Odt (Ondansetron) 8 Mg Tab.rapdis 8 Mg PO Q8H PRN Nitroglycerin 0.4 Mg Tab.subl 0.4 Mg SL UD PRN Tresiba Flextouch U-100 (Insulin Degludec) 100 Unit/1 Ml Insuln.pen SQ UD LAST FILLED 09-14-18 10 UNITS DAILY IN THE MORNING AND TITRATE INSTRUCTED. MAX DAILY DOSE 40 UNITS Gabapentin 600 Mg Tablet 600 Mg PO TID LAST FILLED #90 11-24-18 Furosemide 20 Mg Tablet 20 Mg PO DAILY PRN Ferrous Sulfate 325 Mg Tablet 325 Mg PO BID Instructions to patient/family Please see electronic discharge instructions given to patient. Diagnosis/Problems Diagnosis/Problems (1) Hemorrhagic stroke (2) Ischemic stroke (3) Aphasia (4) Decubitus ulcer (5) COPD (chronic obstructive pulmonary disease) (6) Diabetes mellitus (7) Anxiety (8) Expressive aphasia (9) CAD (coronary artery disease) (10) Dysphagia (11) Depression (12) CHF (congestive heart failure) (13) Hyperlipidemia (14) Hyponatremia (15) Renal calculus (16) Marijuana abuse (17) Schizophrenia (18) GERD (gastroesophageal reflux disease) (19) Hypothyroidism (acquired) (20) Hypertension (21) CVA (cerebral vascular accident) (22) LILY (obstructive sleep apnea) (23) Cardiomyopathy, ischemic (24) Colon polyps (25) Temple catheter in place (26) Acute kidney injury (27) Factor 5 Leiden mutation, heterozygous (28) History of ST elevation myocardial infarction (STEMI) (29) Hx pulmonary embolism (30) Melena (31) Iron deficiency (32) Decubitus ulcer of coccyx, stage 2 Clinical Quality Measures DVT/VTE Risk/Contraindication: Risk Factor Score Per Nursin RFS Level Per Nursing on Admit: 4+=Very High Other: HEMORRHAGIC CVA; ANTIPLATELET CAN BE RESUMED IN 2 WEEKS KAILEY RENE DO Jan 25, 2019 08:55
[2019-01-25 09:15] VITALS: BP 99/67
--- NOTE | 2019-01-25 09:15 | NUR ---
Lisinapril and coreg held for BP of 99/67 and HR of 78.
[2019-01-25] MEDS: POLYETHYLENE GLYCOL 17 GM (MIRALAX) PACK PO SCH (09:28)
--- NOTE | 2019-01-25 09:28 | Therapy Team Discharge Summary ---
Therapy Discharge Summary Discharge Recommendations Date of Discharge 01/25/2019 Therapy D/C Recommendations: Home w/ Family Support, [facility] ([facility]) Physical Therapy This patient was admitted to ARU post acute hospital stay due to CVA. Prior to his acute stay, he was indep to [facility] with mobility. Upon admission to this unit, he was max assist to dep with all transfers, unable to ambulate and max to dep with [facility] mobility. Treatment has focused on functional activity and mobiltiy to increase his mobility skills. His level of alertness and participation has improved; however, he remains at a max assist with all care. His communication is limited at this time which is a barrier with treatment. He is participatory and would likely benefit from continued therapy in a skilled setting to address mobility, seating, positioning for optimal well being long term care social worker. No goals achieved at this facility. Will DC this date. Occupational Therapy Decreased Activ Tolerance, Decreased Safety Aware, Decreased UE Strength, Dependent Transfers, Impaired Bed Mobility, Impaired Coordination, Impaired Funct Balance, Impaired I ADL's, Impaired Self-Care Skills, Restricted Funct UE ROM PT Track Laborer Goals Track Laborer Goals PT Track Laborer Goals Time Frame: Feb 04, 2019 Transfers (B,C,W/C) (FIM): 4 Roll Left to Right (QC): 3 Sit to Lying (QC): 3 Lying-Sitting on Side/Bed(QC): 3 Sit to Stand (QC): 3 Chair/Bhv-sa-Groex Xfer(QC): 3 Car Transfer (QC): 3 Gait (FIM): 6 Distance: 20' Walk 10 feet (QC): 3 Gait Level of Assist: 4 Gait Assistive Device: Walker Dmitry Wheelchair (FIM): 6 Distance: 50' Wheelchair Level of Assist: 3 Wheel 50 feet with 2 turns (QC: 2 no goals met OT Track Laborer Goals Track Laborer Goals Time Frame: Feb 04, 2019 Eating (FIM): 6 Eating (QC): 5 Oral Hygiene (QC): 4 Grooming(FIM): 6 Bathing(FIM): 6 Shower/Bathe Self (QC): 3 Upper Body Dressing(FIM): 6 Upper Body Dressing (QC): 3 Lower Body Dressing(FIM): 6 On/Off Footwear (QC): 3 Toileting(FIM): 6 Toileting Hygiene (QC): 3 Toilet/Commode Transfer(FIM): 4 Toilet/Commode Transfer (QC): 3 Shower Transfer(FIM): 3 Comprehension(FIM): 6 Expression (FIM): 6 Social Interaction(FIM): 6 Problem Solving(FIM): 6 Memory(FIM): 6 Additional Goals: 1-Demonstrate ADL Tasks, 2-Verbalize Understanding, 3- ImproveStrength/Merlin 1=Demonstrate adherence to instructed precautions during ADL tasks. 2=Patient will verbalize/demonstrate understanding of assistive devices/ modifications for ADL. 3=Patient will improve strength/tolerance for activity to enable patient to perform ADL's. Speech Mcfp Goals Mcfp Goals The patient will be able to effectively communicate his wants/needs with a variety of communication means. Met at 75% Comprehension: 6 Expression: 6 Social Interaction: 6 Problem Solvin Memory: 6 MARIEL HESTER PT Jan 25, 2019 09:28
[2019-01-25] MEDS: ACETAMINOPHEN 500 MG TAB (TYLENOL) PO SCH (09:29)
[2019-01-25] MEDS: LEVETIRACETAM 500 MG (KEPPRA) TAB PO SCH (09:29)
[2019-01-25] MEDS: GABAPENTIN 600 MG (NEURONTIN) TAB PO SCH ×2 (09:30→12:49)
[2019-01-25] MEDS: risperiDONE 0.25 MG (RisperDAL) TAB PO SCH (09:30)
[2019-01-25] MEDS: PANTOPRAZOLE 40 MG (PROTONIX) TAB PO SCH (09:30)
[2019-01-25] MEDS: CARVEDILOL 3.125 MG (COREG) TABLET PO SCH (10:49)
[2019-01-25] MEDS: lisINopril 5 MG (PRINIVIL) TABLET PO SCH (10:51)
--- NOTE | 2019-01-25 12:54 | NUR ---
TENNIS NET MAKER received contact back from FELIPA Contreras at [facility] with acceptance for SNF placement today. [facility] contracts through [facility] for transportation, TENNIS NET MAKER has arranged azar chair transport in order for patient to recline due to pressure ulcer on coccyx and instability with seated position. [facility] can provide transport today between 3-4pm. TENNIS NET MAKER provided report number to RN. TENNIS NET MAKER completed PASRR and Medicare Skilled Certificate and placed in discharge paperwork. TENNIS NET MAKER provided update to patient's sister, she is currently at facility completing admission paperwork. TENNIS NET MAKER reviewed IMM with patient's sister, as patient is unable to sign to due cognitive deficits. Please see discharge summary for further information.
--- NOTE | 2019-01-25 12:54 | Therapy Team Discharge Summary ---
Therapy Discharge Summary Discharge Recommendations Date of Discharge Therapy D/C Recommendations: Home w/ Family Support, [facility] (TCU[facility]) Occupational Therapy Pt admitted to ARU following acute hospitalization for CVA. On admission pt required max assist for grooming and was dependent for other ADLs and transfers. Skilled OT intervention focused on ADL training, transfers, balance, and strengthening. Pt more alert, but made minimal progress. At d/c pt is max assist for grooming and UE dressing and dependent for all other ADLs and transfers. Pt did not meet any OT LTG. Pt is discharging to SNF this date. D/c ARU OT at this time. Decreased Activ Tolerance, Decreased Safety Aware, Decreased UE Strength, Dependent Transfers, Impaired Bed Mobility, Impaired Coordination, Impaired Funct Balance, Impaired I ADL's, Impaired Self-Care Skills, Restricted Funct UE ROM PT Yardage Caller Goals Long-Term Goals PT Yardage Caller Goals Time Frame: Feb 04, 2019 Transfers (B,C,W/C) (FIM): 4 Roll Left to Right (QC): 3 Sit to Lying (QC): 3 Lying-Sitting on Side/Bed(QC): 3 Sit to Stand (QC): 3 Chair/Wls-bt-Ljbck Xfer(QC): 3 Car Transfer (QC): 3 Gait (FIM): 6 Distance: 20' Walk 10 feet (QC): 3 Gait Level of Assist: 4 Gait Assistive Device: Walker Dmitry Wheelchair (FIM): 6 Distance: 50' Wheelchair Level of Assist: 3 Wheel 50 feet with 2 turns (QC: 2 OT Long-Term Goals Yardage Caller Goals Time Frame: Feb 04, 2019 Eating (FIM): 6 Eating (QC): 5 Oral Hygiene (QC): 4 Grooming(FIM): 6 Bathing(FIM): 6 Shower/Bathe Self (QC): 3 Upper Body Dressing(FIM): 6 Upper Body Dressing (QC): 3 Lower Body Dressing(FIM): 6 On/Off Footwear (QC): 3 Toileting(FIM): 6 Toileting Hygiene (QC): 3 Toilet/Commode Transfer(FIM): 4 Toilet/Commode Transfer (QC): 3 Shower Transfer(FIM): 3 Comprehension(FIM): 6 Expression (FIM): 6 Social Interaction(FIM): 6 Problem Solving(FIM): 6 Memory(FIM): 6 Additional Goals: 1-Demonstrate ADL Tasks, 2-Verbalize Understanding, 3- ImproveStrength/Merlin 1=Demonstrate adherence to instructed precautions during ADL tasks. 2=Patient will verbalize/demonstrate understanding of assistive devices/ modifications for ADL. 3=Patient will improve strength/tolerance for activity to enable patient to perform ADL's. Speech Yardage Caller Goals Yardage Caller Goals The patient will be able to effectively communicate his wants/needs with a variety of communication means. Met at 75% Comprehension: 6 Expression: 6 Social Interaction: 6 Problem Solvin Memory: 6 NANCY GORMAN OT Jan 25, 2019 12:54
--- NOTE | 2019-01-25 15:30 | NUR ---
[facility] [place] at [phone].
--- NOTE | 2019-01-25 17:10 | NUR ---
Care assumed from Tara Savage RN. Agree with previous assessments.
--- NOTE | 2019-01-25 18:40 | NUR ---
Patient discharged from facility via azar-chair by SNF facility wheelchair accessible van. This nurse attempted to call facility to alert them to patient's departure. No answer. Answer left on machine to call hospital.
[2019-01-25 18:53] VITALS: BP 99/67
== END 2019-01-25 18:40 | DRG 57 ==
PROVIDERS: ADMIT Internal Medicine; ATTEND Internal Medicine
DX: I69.351 Hemiplegia and hemiparesis following cerebral infarction affecting right dominant side (principal); I69.320 Aphasia following cerebral infarction; I69.391 Dysphagia following cerebral infarction; R13.10 Dysphagia, unspecified; L89.152 Pressure ulcer of sacral region, stage 2; N17.9 Acute kidney failure, unspecified; D68.51 Activated protein C resistance; E87.1 Hypo-osmolality and hyponatremia; I25.119 Atherosclerotic heart disease of native coronary artery with unspecified angina pectoris; I11.0 Hypertensive heart disease with heart failure; I50.9 Heart failure, unspecified; E11.9 Type 2 diabetes mellitus without complications; I25.5 Ischemic cardiomyopathy; N31.9 Neuromuscular dysfunction of bladder, unspecified; F17.200 Nicotine dependence, unspecified, uncomplicated; K21.9 Gastro-esophageal reflux disease without esophagitis; F41.9 Anxiety disorder, unspecified; F32.9 Major depressive disorder, single episode, unspecified; F20.9 Schizophrenia, unspecified; G47.33 Obstructive sleep apnea (adult) (pediatric); E78.5 Hyperlipidemia, unspecified; E03.9 Hypothyroidism, unspecified; R15.9 Full incontinence of feces; Z93.1 Gastrostomy status; Z79.4 Long term (current) use of insulin; Z95.5 Presence of coronary angioplasty implant and graft; K92.1 Melena; R33.9 Retention of urine, unspecified; T82.855D Stenosis of coronary artery stent, subsequent encounter; I95.2 Hypotension due to drugs
CPT/HCPCS: 36415; 80053; 82274; 82962; 83540; 85025; 85610; 85730; 87081; 93306

== ENCOUNTER → 2019-01-18 | Day surgery (SDC) | payer MEDICARE, MEDICAID ==
[~2019-01-18] MED LIST: BUDE10.2 INH; Bethanechol Chl PO; CARV12.52 PO; CARV3.122 PO; CLOP75TA69 PO; DOXA2TAB2 PO; DULA0.75 SC; DULA1.5P2 SQ; ERGO50006 PO; FERR325T18 PO; FURO20TA4 PO; GBPN600T PO; INSU100I32 SQ; INSU100V16 SC; INSU100V5 SQ; LACTATED RINGERS 1,000 ML IV ONE; LEVE100S16 PO; LEVE500T6 PO; LEVO125T PO; LEVO125T6 PO; LEVO175T5 PO; LISI-556 PO; LURA40TA3 PO; LURA80TA3 PO; MIDAZOLAM 2 MG/2 ML (VERSED) VIAL ONE; NF-ESOM40C PO; NITR0.4T39 SL; ONDA8TAB13 PO; OXYC-465 PO; OXYC20TA54 PO; PANT40TA3 PO; PHENYLEPHRINE 100 MCG/ML 10 ML (ANESTHESIA) SYR ONE; POLY17PO6 PO; PROPOFOL INJECTION 50 ML IV ONE; RISP0.253 PO; RIVA20TA2 PO; ROSU40TA PO; SALI45SP MM; VILA40TA PO; proPOfol 200 MG/20 ML (DIPRIVAN) VIAL IV ONE
--- NOTE | 2019-01-19 10:34 | Progress Note-Post Operative ---
Post-Operative Progess Note Surgeon (s)/Old Coin Dealer (s) Surgeon FRANKIE DE SOUZA DO Old Coin Dealer: none Pre-Operative Diagnosis GI bleed, anemia Post-Operative Diagnosis Gastritis Duodenitis Poor prep Procedure & Operative Findings Date of Procedure 01/18/19 Procedure Performed/Findings EGD with bx Attempted colonoscopy Anesthesia Type IV sedation by Anesthesiologist Estimated Blood Loss Estimated blood loss (mL): none Specimens/Packing Specimens Removed Duodenal bx Antral bx FRANKIE DE SOUZA DO Jan 19, 2019 10:34
--- NOTE | 2019-01-19 13:47 | Progress Note-Post Operative ---
Post-Operative Progess Note Surgeon (s)/Blanket Winder Helper (s) Surgeon FRANKIE DE SOUZA DO Blanket Winder Helper: none Pre-Operative Diagnosis GI bleed, anemia Post-Operative Diagnosis Rectal ulceration Procedure & Operative Findings Date of Procedure 01/19/19 Procedure Performed/Findings Colonoscopy with bx Anesthesia Type IV sedation by CUSTOM GRINDER Estimated Blood Loss Estimated blood loss (mL): scant Specimens/Packing Specimens Removed Rectal bx FRANKIE DE SOUZA DO Jan 19, 2019 13:47
[2019-01-19 14:10] VITALS: BP 106/59
--- NOTE | 2019-01-19 14:25 | Anesthesia-General Post-Op ---
MAC Patient Condition Mental Status/LOC: Same as Preop Cardiovascular: Satisfactory Nausea/Vomiting: Absent Respiratory: Satisfactory Pain: Controlled Complications: Absent Post Op Complications Complications None Follow Up Care/Instructions Patient Instructions None needed. Anesthesiology Discharge Order Discharge Order Patient is doing well, no complaints, stable vital signs, no apparent adverse anesthesia problems. No complications reported per nursing. WILY ROBLES CRNA Jan 19, 2019 14:25
--- NOTE | 2019-01-19 20:25 | OPERATIVE REPORT ---
DATE OF SERVICE: 01/18/2019 PREOPERATIVE DIAGNOSES: Gastrointestinal bleed, anemia. POSTOPERATIVE DIAGNOSES: Duodenitis and gastritis and poor prep. PROCEDURES: 1. EGD with biopsy. 2. Attempted colonoscopy. SURGEON: Tres Moffett DO TRAY DRIER OPERATOR: None. ANESTHESIA: IV sedation by anesthesiologist. SPECIMENS: Biopsies from duodenum and antrum. BLOOD LOSS: Scant. FLUIDS: Per anesthesia. POSTOPERATIVE CONDITION: Stable. INDICATION FOR PROCEDURE: The patient is a 53-year-old male, who was recently found to have Hemoccult positive stools and slightly anemic and needed a workup. FINDINGS: The patient had duodenitis and a little bit of gastritis. I attempted to do a colonoscopy. Unfortunately, he had fully formed stool in the rectum. PROCEDURE NOTE: After informed consent was obtained, the patient was brought to the endoscopy suite, placed in the bed in left lateral decubitus position. Administered IV sedation by anesthesia and then started with the EGD, placed the scope down the mouth through the esophagus into the stomach. Upon entering the stomach, noted his PEG tube, took a picture of this and pushed in the duodenum, a little bit of inflammation of duodenum, took a picture of this and did a biopsy of the duodenum, pulled back a little, did a biopsy of the antrum. Retroflexed the scope, did not really see any hiatal hernia or maybe a small one, had pushed actually into the second and third portion of the part of the duodenum. This looked fine. At this point, then pulled the scope up the stomach out of the esophagus and out the mouth. I then attempted to perform the colonoscopy. Unfortunately, he has completely fully formed stool in the rectum and could not get past this. I elected to stop and prep him one more day and then repeat the colonoscopy the next day. Job ID: [id number] DocumentID: [id number] Dictated Date: 01/19/2019 14:46:59 Changeover Operator Date: 01/19/2019 20:24:13 Dictated By: TRES MOFFETT DO
== END | disposition home or self-care (01) ==
LOC: ENDO 14:10
PROVIDERS: ATTEND Surgery
DX: K92.2 Gastrointestinal hemorrhage, unspecified (principal); K29.80 Duodenitis without bleeding; K29.70 Gastritis, unspecified, without bleeding; D64.9 Anemia, unspecified; K56.41 Fecal impaction; D68.2 Hereditary deficiency of other clotting factors; I69.351 Hemiplegia and hemiparesis following cerebral infarction affecting right dominant side; I25.119 Atherosclerotic heart disease of native coronary artery with unspecified angina pectoris; I10 Essential (primary) hypertension; E11.9 Type 2 diabetes mellitus without complications; E78.5 Hyperlipidemia, unspecified; F17.200 Nicotine dependence, unspecified, uncomplicated; K21.9 Gastro-esophageal reflux disease without esophagitis; F41.9 Anxiety disorder, unspecified; F32.9 Major depressive disorder, single episode, unspecified; F20.9 Schizophrenia, unspecified; Z93.1 Gastrostomy status; Z79.4 Long term (current) use of insulin; Z79.899 Other long term (current) drug therapy; Z95.5 Presence of coronary angioplasty implant and graft
CPT/HCPCS: 88305

== ENCOUNTER → 2019-01-19 | Day surgery (SDC) | payer MEDICARE, MEDICAID ==
[~2019-01-19] MED LIST changes: -LACTATED RINGERS 1,000 ML IV ONE; -MIDAZOLAM 2 MG/2 ML (VERSED) VIAL ONE; -PHENYLEPHRINE 100 MCG/ML 10 ML (ANESTHESIA) SYR ONE; -PROPOFOL INJECTION 50 ML IV ONE; -proPOfol 200 MG/20 ML (DIPRIVAN) VIAL IV ONE
[2019-01-19 14:10] VITALS: BP 106/59
--- NOTE | 2019-01-19 21:36 | OPERATIVE REPORT ---
DATE OF SERVICE: PREOPERATIVE DIAGNOSES: Gastrointestinal bleed and anemia. POSTOPERATIVE DIAGNOSES: Gastrointestinal bleed, rectal ulcer, fecal impaction and internal hemorrhoids. PROCEDURES: 1. Colonoscopy with cold biopsy. 2. Manual disimpaction. SURGEON: Tres Moffett DO BRASSIERE CUP MOLD CUTTER: None. ANESTHESIA: IV sedation by the IGNITER ASSEMBLER. SPECIMEN: Biopsy from the rectum. BLOOD LOSS: Scant. FLUIDS: Per anesthesia. POSTOPERATIVE CONDITION: Stable. INDICATION FOR PROCEDURE: The patient is a 53-year-old male with a long protracted course, multiple medical problems and noted to have Hemoccult positive stool, slightly anemic and needed a workup. EGD was done yesterday. Plan to do a colonoscopy today. FINDINGS: The patient had a fecal impaction. I had disimpacted the patient, then able to perform the colonoscopy. He had what looked like a rectal ulcer. Biopsy was done of this. No other obvious pathology seen. PROCEDURE NOTE: After informed consent was obtained, the patient was brought to the endoscopy suite, placed on the bed in left lateral decubitus position. He was administered IV sedation by the IGNITER ASSEMBLER, who then monitored his vitals the entire time, heart rate, blood pressure and pulse ox. Inserted the scope, tried to look into the rectum, but again found a large fecal material in the rectum and elected to try a rectal exam and could feel hard formed stool in the rectum. It was impacted in here. Able to manually disimpact and get all of this formed stool out of the rectum and then able to perform the colonoscopy. Pushed the scope in all the way about 100 cm, able to get to the cecum, took a picture of the appendiceal orifice, noted the ileocecal valve and then slowly withdrew the scope insufflating to look circumferentially at the santos looking at the cecum, up the ascending colon to the hepatic flexure, down the transverse colon, the splenic flexure, into the descending colon and down into the sigmoid and finally into the rectum, retroflexed the rectal vault, saw what looked like some possibly a rectal ulcer. This may have just been from the fecal impaction eroding way, also saw some internal hemorrhoids, took a picture of this and then elected to do a biopsy of what looked like a rectal ulcer, got one good biopsy and then removed the scope. The patient tolerated the procedure, recovered in the endoscopy suite and then sent back up to his room. Job ID: [id number] DocumentID: [id number] Dictated Date: 01/19/2019 14:50:41 Cloth Inspector Date: 01/19/2019 21:35:14 Dictated By: TRES MOFFETT DO
== END | disposition home or self-care (01) ==
LOC: EDSTATUS 12:10 → ENDO 13:05
PROVIDERS: ATTEND Surgery
DX: K92.2 Gastrointestinal hemorrhage, unspecified (principal); K62.6 Ulcer of anus and rectum; D64.9 Anemia, unspecified; D68.2 Hereditary deficiency of other clotting factors; I69.351 Hemiplegia and hemiparesis following cerebral infarction affecting right dominant side; I25.119 Atherosclerotic heart disease of native coronary artery with unspecified angina pectoris; I10 Essential (primary) hypertension; E11.9 Type 2 diabetes mellitus without complications; E78.5 Hyperlipidemia, unspecified; F17.200 Nicotine dependence, unspecified, uncomplicated; K21.9 Gastro-esophageal reflux disease without esophagitis; F41.9 Anxiety disorder, unspecified; F32.9 Major depressive disorder, single episode, unspecified; F20.9 Schizophrenia, unspecified; Z93.1 Gastrostomy status; Z79.4 Long term (current) use of insulin; Z79.899 Other long term (current) drug therapy; Z95.5 Presence of coronary angioplasty implant and graft
CPT/HCPCS: 88305

== ENCOUNTER → 2019-01-20 | Day surgery (SDC) | payer MEDICARE, MEDICAID ==
[~2019-01-20] MED LIST changes: +LIDOCAINE UROJET 2% GEL 10 ML PKG TOP ONE
--- NOTE | 2019-01-20 22:11 | OPERATIVE REPORT ---
DATE OF SERVICE: 01/20/2019 PREOPERATIVE DIAGNOSIS: Urinary retention. POSTOPERATIVE DIAGNOSIS: Urinary retention. OPERATION PERFORMED: Cystoscopy. SURGEON: Chau Camilo MD ANESTHESIA: Local. COMPLICATIONS: None. DESCRIPTION OF PROCEDURE: With the patient supine in his bed, the catheter was removed and the genitalia were prepped and draped in the usual sterile fashion. Urethra was infiltrated with 2% lidocaine jelly. Penile clamp was applied. This was then removed and a flexible cystoscope was introduced under vision. The anterior urethra was normal. The prostate was not enlarged. There was minimal bladder neck obstruction and minimal trabeculations in the bladder. Ureteric orifices were normal in shape, size and configuration with clear efflux. No foreign body, bladder tumor or stone visualized. Cystoscopy confirmed an antegrade fashion and the cystoscope was removed. The patient tolerated the procedure and anesthesia well, remaining in his bed in stable condition. PLAN: I would continue the Cardura at 2 mg a day. We are going to add Urecholine first at 10 mg q.i.d. before meals and at bedtime to see how he tolerates that and how it acts on the bladder. We will leave the catheter out and gave him a trial of voiding, bladder scan and straight cath p.r.n. Job ID: [id number] DocumentID: [id number] Dictated Date: 01/20/2019 12:24:57 Slide Maker Date: 01/20/2019 16:37:10 Dictated By: CHAU CAMILO MD
== END ==
LOC: EDSTATUS 12:00
PROVIDERS: ATTEND Urology
DX: R33.9 Retention of urine, unspecified (principal); D64.9 Anemia, unspecified; I69.351 Hemiplegia and hemiparesis following cerebral infarction affecting right dominant side; I25.119 Atherosclerotic heart disease of native coronary artery with unspecified angina pectoris; I10 Essential (primary) hypertension; E11.9 Type 2 diabetes mellitus without complications; E78.5 Hyperlipidemia, unspecified; F17.200 Nicotine dependence, unspecified, uncomplicated; K21.9 Gastro-esophageal reflux disease without esophagitis; F41.9 Anxiety disorder, unspecified; F20.9 Schizophrenia, unspecified; Z93.1 Gastrostomy status; Z79.4 Long term (current) use of insulin; Z79.899 Other long term (current) drug therapy; Z95.5 Presence of coronary angioplasty implant and graft